=== PATIENT | female | born 1955 | race Caucasian/White ===

== ENCOUNTER 2019-05-13 17:39 | Inpatient (IN) | payer MEDICARE, OTHER ==
[~2019-05-13] VITALS: Ht 167.6 cm; Wt 167.4 kg
[2019-05-13] MEDS ORDERED: MEROPENEM 1GRAM 1 GM in SODIUM CHLORIDE 0.9% 100 ML 100 ML IV ONE (18:00)
[2019-05-13] MEDS ORDERED: VANCOMYCIN 1GM/NS 250 ML 250 ML IV ONE (18:00)
[2019-05-13] MEDS ORDERED: PROPOFOL IV EMULSION 10MG/ML 100 ML ONE (18:02)
[2019-05-13] MEDS ORDERED: SODIUM CHLORIDE 0.9% 1000ML 1,000 ML ONE (18:04)
[2019-05-13] MEDS ORDERED: MEROPENEM 1GM 100 ML IV ONE (18:15)
[2019-05-13] MEDS ORDERED: SODIUM CHLORIDE 0.9% 1000ML 1,000 ML IV STA (18:16)
[2019-05-13] MEDS ORDERED: PANTOPRAZOLE 40 MG 10ML VIAL IV ONE (18:17)
[2019-05-13 18:25] LABS: BASOPHILS # (AUTO) 0.1 (0.0-0.1); BASOPHILS % 0.9 % (0.0-1.0); EOSINOPHILS # (AUTO) 0.3 (0.0-0.4); EOSINOPHILS % 2.4 % (0.0-6.0); HEMATOCRIT 34.4 % (34.2-44.1); HEMOGLOBIN 9.7 g/dL (12.0-16.0); LYMPHOCYTES # (AUTO) 2.7 (1.0-3.2); LYMPHOCYTES % 24.2 % (18.0-39.1); MEAN CORPUSCULAR HEMOGLOBIN 22.8 pg (28-32); MEAN CORPUSCULAR HGB CONC 28.2 g/dL (31-35); MEAN CORPUSCULAR VOLUME 80.9 fL (81-99); MONOCYTES # (AUTO) 1.1 (0.2-0.8); MONOCYTES % 9.8 % (4.4-11.3); NEUTROPHILS # (AUTO) 6.9 (2.1-6.9); NEUTROPHILS % 62.2 % (38.7-80.0); PLATELET COUNT 335 x10e3/uL (140-360); RED BLOOD COUNT 4.25 x10e6/uL (3.6-5.1); RED CELL DISTRIBUTION WIDTH 19.8 % (11.7-14.4)
[2019-05-13] MEDS ORDERED: ONDANSETRON HCL INJ 2MG/ML 2ML 2 MG/ML VIAL IV PRN (18:30)
[2019-05-13] MEDS ORDERED: SUCCINYLCHOLINE CHLORIDE 20 MG/ML 10ML VIAL ONE (18:32)
[2019-05-13] MEDS ORDERED: ETOMIDATE 40 MG/ 20ML VIAL IV ONE (18:32)
[2019-05-13 18:39] LABS: BILIRUBIN,URINE NEGATIVE (NEGATIVE); CLARITY,URINE CLOUDY (CLEAR); COLOR,URINE YELLOW (YELLOW); KETONES,URINE NEGATIVE (NEGATIVE); LEUKOCYTE ESTERASE ,URINE LARGE (NEGATIVE); NITRITE,URINE POSITIVE (NEGATIVE); PROTEIN,URINE DIPSTICK 2+ (NEGATIVE); URINE UROBILINOGEN 0.2 mg/dL (0.2 - 1)
[2019-05-13 18:52] LABS: ALBUMIN 3.5 g/dL (3.5-5.0); ANION GAP 21.3 mmol/L (8-16); CALCIUM 9.7 mg/dL (8.4-10.2); CREATININE, SERUM 1.72 mg/dL (0.57-1.11); MAGNESIUM 1.9 MG/DL (1.3-2.1); POTASSIUM 4.3 mmol/L (3.5-5.1)
--- NOTE | 2019-05-13 18:53 | Diagnostic Imaging Report ---
EXAMINATION: CHEST SINGLE (PORTABLE) INDICATION: ^sob>intubated ^20190513 ^[id number] COMPARISON: None FINDINGS: AP view TUBES and LINES: There is an endotracheal tube in place with distal tip just below the clavicle. Recommend 4 cm advancement. LUNGS: Right upper lobe opacity is seen compatible with consolidation. There is hazy opacity overlying the left lung. PLEURA: No pleural effusion or pneumothorax. HEART AND MEDIASTINUM: The cardiomediastinal silhouette is unremarkable. BONES AND SOFT TISSUES: No acute osseous lesion. Soft tissues are unremarkable. UPPER ABDOMEN: No free air under the diaphragm. IMPRESSION: There is an endotracheal tube in place with distal tip just below the clavicle. Recommend 4 cm advancement. Right upper lobe consolidation and hazy opacity overlying the left lung likely infectious in etiology. Signed by: Jero Rondon MD on 05/13/2019 6:51 PM
[2019-05-13 18:59] LABS: CREATINE KINASE MB 2.3 ng/mL (0-5.0)
[2019-05-13 19:00] VITALS: BP 105/83
[2019-05-13 19:00] LABS: B-TYPE NATRIURETIC PEPTIDE2 1341.4 pg/mL (0-100)
[2019-05-13] MEDS ORDERED: SODIUM CHLORIDE 0.9% 1000ML 1,000 ML IV ONE ×2 (19:05)
[2019-05-13 19:15] LABS: BACTERIA,URINE MODERATE /HPF; EPITHELIAL CELLS,URINE MODERATE /LPF
[2019-05-13 19:56] LABS: ABG HCO3 28 mmol/L (23-28); ABG PCO2 46 mmHg (41-51); ABG PH 7.39 (7.31-7.41); ABG PO2 331 mmHg (80-105)
[2019-05-13] MEDS ORDERED: LORAZEPAM INJ 2 MG/ML VIAL IV PRN (20:00)
[2019-05-13] MEDS ORDERED: SODIUM CHLORIDE 0.9% 1000ML 1,000 ML IV SCH (20:15)
[2019-05-13 20:24] LABS: INR 1.3
[2019-05-13 20:25] LABS: PARTIAL THROMBOPLASTIN TIME 36.9 seconds (23.8-35.5)
[2019-05-13 21:00] VITALS: BP 87/68
[2019-05-13 21:26] VITALS: BP 105/83
[2019-05-13] MEDS: DEXMEDETOMIDINE HCL 200 MCG in SODIUM CHLORIDE 0.9% 50ML 48 ML IV PRN ×2 (21:29→23:36)
[2019-05-13 22:00] VITALS: BP 117/82
[2019-05-13] MEDS: MEROPENEM 1GM 100 ML IV SCH (22:00)
[2019-05-13] MEDS ORDERED: MEROPENEM 1GRAM 1 GM in SODIUM CHLORIDE 0.9% 100 ML 100 ML IV SCH (22:00)
[2019-05-13] MEDS: AZITHROMYCIN 500MG/NS 250 ML 250 ML IV SCH (22:12)
[2019-05-13 23:00] VITALS: BP 114/69
[2019-05-13 23:59] VITALS: BP 111/72
[2019-05-14] VITALS (26 sets, daily range): BP systolic 90–121; BP diastolic 47–78
--- NOTE | 2019-05-14 00:12 | Consultation ---
DATE OF CONSULTATION: 06/11/2019 CHIEF COMPLAINT: Respiratory failure. HISTORY OF PRESENT ILLNESS: The patient is a 63-year-old woman. She has a history of atrial fibrillation and congestive heart failure. She was staying at the [facility]. Apparently, she had more trouble breathing and was less responsive. She came to the emergency department, was found to be in extremis, being in severe respiratory distress. She was intubated. Subsequent workup showed a right upper lobe infiltrate suggestive of possible pneumonia along with pyuria suggestive of possible urinary tract infection. PAST SURGICAL HISTORY: 1. Status post hysterectomy. 2. Status post bilateral knee surgery. PAST MEDICAL HISTORY: 1. Atrial fibrillation. 2. Congestive heart failure. 3. Morbid obesity. SOCIAL HISTORY: The patient is not an active smoker. She is not an active drinker. ALLERGIES: SHE IS ALLERGIC TO STATINS, PENICILLIN, SULFA, FENTANYL, MORPHINE, AND OXYCODONE. FAMILY HISTORY: Noncontributory. REVIEW OF SYSTEMS: The patient has been less oriented. The patient has been confused. There is no reported history of fevers. She did have trouble breathing. There was no reported chest pain. She had no vomiting. She had no diarrhea. She had no leg edema. PHYSICAL EXAMINATION: VITAL SIGNS: The patient is afebrile. The blood pressure is 110/70 with a heart rate of 110. She is on assist-control mode of ventilation at a rate of 18 with a tidal volume of 500. She has an oral endotracheal tube in place. CARDIAC: Reveals regular rate and rhythm with normal S1 and S2. LUNGS: Auscultation of lungs reveals rhonchorous breath sounds bilaterally. There is no wheezing. ABDOMEN: Soft and nontender. There is no rebound or guarding. EXTREMITIES: Show no leg edema or calf tenderness. There is a Landaverde in place with pyuria. LABORATORY DATA: White blood cell count is 11, hemoglobin is 9.7, and the platelet count is 335. BUN to creatinine ratio is 22 to 1.72. Lactic acid is 5.7. The BNP is 1341. Urinalysis shows 11 to 20 white blood cells. Chest x-ray shows right upper lobe consolidation and hazy opacity over the left lung. IMPRESSION: 1. Healthcare-associated pneumonia with severe sepsis, present on admission. 2. Zrsxl-nc-rsyqqak respiratory failure. 3. Nrqxb-ki-kwycrno mixed diastolic and systolic heart failure. 4. Morbid obesity. 5. Urinary tract infection. PLAN: 1. The patient will receive IV antibiotics with adequate coverage for healthcare-associated pathogens. 2. Continue mechanical ventilation. 3. The patient has received 30 mL of fluid per kg of ideal body weight. 4. Await culture results. 5. Echocardiogram. 6. DVT prophylaxis. 7. Enteral feedings. Silvestre Pham MD [facility]/NARGIS /[id number]
[2019-05-14 00:28] LABS: CREATINE KINASE MB 2.9 ng/mL (0-5.0)
[2019-05-14] MEDS: DEXMEDETOMIDINE HCL 200 MCG in SODIUM CHLORIDE 0.9% 50ML 48 ML IV PRN ×2 (01:44→04:06)
[2019-05-14 05:27] LABS: BASOPHILS % 0.6 % (0.0-1.0); EOSINOPHILS # (AUTO) 0.2 (0.0-0.4); EOSINOPHILS % 2.6 % (0.0-6.0); HEMATOCRIT 27.6 % (34.2-44.1); HEMOGLOBIN 7.9 g/dL (12.0-16.0); LYMPHOCYTES # (AUTO) 1.1 (1.0-3.2); LYMPHOCYTES % 15.6 % (18.0-39.1); MEAN CORPUSCULAR HEMOGLOBIN 22.8 pg (28-32); MEAN CORPUSCULAR HGB CONC 28.6 g/dL (31-35); MEAN CORPUSCULAR VOLUME 79.5 fL (81-99); MONOCYTES # (AUTO) 1.1 (0.2-0.8); MONOCYTES % 14.6 % (4.4-11.3); NEUTROPHILS # (AUTO) 4.8 (2.1-6.9); NEUTROPHILS % 66.2 % (38.7-80.0); PLATELET COUNT 152 x10e3/uL (140-360); RED BLOOD COUNT 3.47 x10e6/uL (3.6-5.1); RED CELL DISTRIBUTION WIDTH 19.4 % (11.7-14.4)
[2019-05-14] MEDS: MEROPENEM 1GM 100 ML IV SCH ×3 (05:28→22:51)
[2019-05-14] MEDS: LEVOTHYROXINE SODIUM 100 MCG TAB PO SCH (05:28)
[2019-05-14 06:03] LABS: CREATINE KINASE MB 2.5 ng/mL (0-5.0)
[2019-05-14 06:24] LABS: ALBUMIN 2.7 g/dL (3.5-5.0); ALBUMIN/GLOBULIN RATIO 0.9 (0.8-2.0); ANION GAP 13.5 mmol/L (8-16); CALCIUM 8.6 mg/dL (8.4-10.2); CHOL/HDL RATIO 5.3 (3.0-3.6); CREATININE, SERUM 1.52 mg/dL (0.57-1.11); POTASSIUM 3.5 mmol/L (3.5-5.1)
--- NOTE | 2019-05-14 07:00 | Diagnostic Imaging Report ---
EXAMINATION: CHEST SINGLE (PORTABLE) COMPARISON: Chest x-ray 05/13/2019 INDICATION: Shortness of breath ^Resp Failure ^20190514 ^0605 DISCUSSION: Frontal view of the chest obtained at 0603 hours. HEART AND MEDIASTINUM: Stable cardiomegaly. Pulmonary arteries are enlarged. LINES: Endotracheal tube terminates 3 to 4 cm above the johana. Enteric tube extends past the diaphragm LUNGS: Right upper lobe consolidation is stable. Left lung is clear. PLEURA: New small right pleural effusion. No pneumothorax. BONES AND SOFT TISSUES: No focal osseous lesion. The soft tissues are normal. IMPRESSION: 1. Support devices as described above. 2. Stable right upper lobe infiltrate. New right pleural effusion. 3. Stable cardiomegaly and pulmonary artery enlargement suggestive of pulmonary artery hypertension. Signed by: Dr. Mari Hernandez MD on 05/14/2019 6:58 AM
[2019-05-14] MEDS ORDERED: DEXMEDETOMIDINE 200MCG/NS 50ML 50 ML IV ONE (07:33)
[2019-05-14 08:01] LABS: HYPOCHROMASIA SLIGHT; RBC MORPHOLOGY COMMENT ABNORMAL
[2019-05-14] MEDS ORDERED: FUROSEMIDE INJ 10 MG/ML 4 ML VIAL ONE (08:07)
[2019-05-14] MEDS: LORAZEPAM INJ 2 MG/ML VIAL IV PRN ×4 (08:20→15:15)
[2019-05-14] MEDS ORDERED: FUROSEMIDE INJ 10 MG/ML 4 ML VIAL IV ONE ×3 (08:30→15:30)
[2019-05-14] MEDS: DULOXETINE HCL 30 MG DELAYED RELEASE PO SCH (08:45)
[2019-05-14] MEDS: PANTOPRAZOLE 40 MG 10ML VIAL IV SCH (08:45)
[2019-05-14] MEDS: RISPERIDONE 0.5 MG TAB PO SCH ×2 (08:46→16:59)
[2019-05-14] MEDS ORDERED: ATENOLOL 50 MG TAB PO SCH (09:00)
[2019-05-14] MEDS ORDERED: HEPARIN 25,000 UNIT DRIP IV ONE (09:28)
[2019-05-14] MEDS ORDERED: HEPARIN SOD (PORCINE) 1000 UNIT/ML SDV IV ONE (09:30)
[2019-05-14] MEDS: HEPARIN 25,000 UNIT 1,000 UNIT in DEXTROSE 5% 250ML 250 ML IV SCH (09:44)
--- NOTE | 2019-05-14 10:04 | Progress Note ---
DATE: 05/14/2019 Pulmonary Critical Care Progress Note SUBJECTIVE: The patient has remained on assist control overnight. She has been on Precedex for sedation. Her heart rate this morning was low in the 40-50 range. Her Precedex was stopped and her atenolol has been held. She was switched to a spontaneous breathing trial this morning and remains on pressure support of 10 and PEEP of 5. PHYSICAL EXAMINATION: VITAL SIGNS: The blood pressure is 105/60 and the saturation is 100%. She is on pressure support of 10 and CPAP of 5 with 45% FiO2. Her tidal volumes are in the 250-300 range and her respiratory rate is 15 to 20. HEENT: Shows no facial swelling or erythema. LYMPHATIC: Shows no submandibular, cervical, or supraclavicular adenopathy. CARDIAC: Reveals a regular rate and rhythm with normal S1 and S2. LUNGS: Auscultation of lungs shows decreased breath sounds on the right side. ABDOMEN: Soft, nontender. There is no rebound or guarding. EXTREMITIES: Show no leg edema or calf tenderness. There is no cyanosis or clubbing. SKIN: Shows no rashes. NEUROLOGICAL: Shows no focal abnormalities. LABORATORY DATA: The white blood cell count is 7.2 and hemoglobin is 7.9. The platelet count is 152. The BUN to creatinine ratio is 21 to 1.52. The other electrolytes are within normal limits. Albumin is 2.7 and the troponin I is normal. RADIOGRAPHIC DATA: Chest x-ray shows a right upper lobe infiltrate and a right pleural effusion. There is some cardiomegaly. IMPRESSION: 1. Healthcare associated pneumonia with severe sepsis, present on admission. 2. Acute on chronic mixed diastolic and systolic heart failure. 3. Atrial fibrillation. 4. Acute on chronic respiratory failure. 5. Morbid obesity. 6. Urinary tract infection. 7. Acute kidney injury. PLAN: 1. IV Lasix this morning. 2. Continue spontaneous breathing trial and repeat ABG in 1 hour. 3. Hold atenolol. 4. Echocardiogram and Cardiology consult. 5. Continue current antibiotics. 6. Await culture results. 7. Case discussed with respiratory, nursing staff and attending physician. 8. Greater than 35 minutes in direct critical care time. Silvestre Pham MD [facility]/NARGIS /[id number]
--- NOTE | 2019-05-14 10:35 | Consultation ---
DATE OF CONSULTATION: 05/14/2019 Cardiology Consultation CONSULTING PHYSICIAN: Dylan Ventura MD, Interventional Cardiology. REASON FOR CONSULTATION: Atrial fibrillation and shortness of breath. HISTORY OF PRESENT ILLNESS: Ms. Wahl is a 63-year-old woman, who [facility] for worsening respiratory distress. She was noted to be in extreme respiratory distress upon admission, requiring an emergent intubation. She is currently on vent support. Per chart review, prior history of heart failure and atrial fibrillation. Imaging studies remarkable for right upper lobe infiltrate and abnormal urinary analysis concerning for possible UTI. She has been initiated on antibiotics. REVIEW OF SYSTEMS: A 12-system review unable to assess. PAST SURGICAL HISTORY: Per review of chart, hysterectomy, bilateral knee surgery. PAST MEDICAL HISTORY: Paroxysmal atrial fibrillation, chronic heart failure, and morbid obesity. SOCIAL HISTORY: Per chart review, no smoking or active drinking alcohol. ALLERGIES: REPORTEDLY ALLERGIC TO STATINS, PENICILLIN, SULFA, FENTANYL, MORPHINE, AND OXYCODONE PER CHART REVIEW. FAMILY HISTORY: Noncontributory. PHYSICAL EXAMINATION: VITAL SIGNS: Temperature 96.4, heart rate 45, blood pressure 90/78, respiratory rate 12, O2 saturation 98%, BMI 60.5. GENERAL: Intubated and sedated on vent support. CHEST: With decreased breath sounds. CARDIOVASCULAR: Irregular rate and rhythm. Normal S1 and S2. Distant heart sounds. No S3 or S4. Systolic ejection murmur 1/6. ABDOMEN: Soft. Bowel sounds positive. EXTREMITIES: 1+ edema. CARDIOVASCULAR MEDICATIONS: Reviewed. Lovenox 40 mg subcu daily, meropenem, and azithromycin antibiotics, levothyroxine 150 mcg daily. STUDIES: Reviewed. Potassium 3.5, creatinine 1.5, glucose 80. White blood cell 7.6, hemoglobin 7.9, and platelets 152. AST 19, ALT 8. ASSESSMENT: 1. A 63-year-old woman presents with acute respiratory failure requiring endotracheal intubation. 2. Morbid obesity. 3. History of heart failure, acute on chronic, unspecified. 4. Suspected pneumonia. 5. Suspected urinary tract infection, undergoing antibiotic therapy. 6. Status post diuretic challenge with furosemide 80 mg and 40 mg given x1. RECOMMENDATIONS: 1. Obtain echocardiogram. 2. Monitor H and H as hemoglobin is 7.9. 3. No active bleeding noted so far. If okay with other treating physicians, consider initiating anticoagulation with heparin IV for history of atrial fibrillation noted on telemetry. 4. Continue diuretic challenge for now. 5. Agree with antibiotic therapy coverage as pneumonia and UTI differential. MD BARB Sewell/NARGIS /[id number]
[2019-05-14] MEDS ORDERED: CYMBALTA30 MG PO (13:03)
[2019-05-14] MEDS ORDERED: DOCUSATE SODIU100 MG PO (13:03)
[2019-05-14] MEDS ORDERED: CYCLOBENZAPRINE10 MG PO (13:03)
[2019-05-14] MEDS ORDERED: DIGOXIN250 MCG PO (13:03)
[2019-05-14] MEDS ORDERED: ATENOLOL50 MG PO (13:03)
[2019-05-14] MEDS ORDERED: CARDIZEM60 MG PO (13:03)
[2019-05-14] MEDS ORDERED: FUROSEMIDE40 MG PO (13:03)
[2019-05-14] MEDS ORDERED: LEVOTHYROXINE100 MC1 IV (13:05)
[2019-05-14 15:31] LABS: CREATINE KINASE MB 1.4 ng/mL (0-5.0)
[2019-05-14] MEDS: FUROSEMIDE INJ 10 MG/ML 4 ML VIAL IV SCH (15:33)
[2019-05-14] MEDS ORDERED: PROPOFOL IV EMULSION 10MG/ML 100 ML ONE (15:40)
[2019-05-14] MEDS ORDERED: PROPOFOL IV EMULSION 10 MG/ML 50 ML VIAL IV PRN (15:45)
[2019-05-14] MEDS: PROPOFOL IV EMULSION 10MG/ML 100 ML IV PRN ×3 (15:48→23:02)
--- NOTE | 2019-05-14 16:06 | History and Physical ---
PCP: Dr. Avilez at [facility]. CHIEF COMPLAINT: Acute respiratory failure due to CHF exacerbation. HISTORY OF PRESENT ILLNESS: This is a 63-year-old female with past medical history of hypertension, atrial fibrillation, diastolic CHF, CKD, osteoarthritis, and cellulitis, presented to the ER with increased shortness of breath. Upon arrival to the ER, she continues to have increased shortness of breath, so was intubated and transferred to the ICU. She remains intubated this morning in the ICU. Unable to obtain any further information due to her being intubated. PAST MEDICAL HISTORY: 1. Hypertension. 2. Paroxysmal atrial fibrillation. 3. Unspecified CHF. 4. CKD. 5. Osteoarthritis. 6. Morbid obesity. 7. Multiple skin ulcers. PAST SURGICAL HISTORY: Unknown. FAMILY MEDICAL HISTORY: Unknown due to intubation. SOCIAL HISTORY: Was at [facility]. ALLERGIES: SHE IS ALLERGIC TO PENICILLIN, STATINS, SULFA, ACETAMINOPHEN, CODEINE, FENTANYL, MORPHINE, OXYCODONE, TRAMADOL, AND MEPERIDINE. REVIEW OF SYSTEMS: Unable to obtain due to intubation. PHYSICAL EXAMINATION: VITAL SIGNS: Temperature 97.9, pulse is 54, respirations 12, blood pressure 107/52, and pulse ox is 98% on ventilator. GENERAL: Sedated, intubated. HEENT: Normocephalic and atraumatic. NECK: Supple. LUNGS: With decreased breath sounds and wheezing. CARDIOVASCULAR: Irregular rhythm and bradycardia. GI: Obese and soft. NEURO: Sedated. MUSCULOSKELETAL: Moves extremities. Generalized edema. SKIN: Multiple scabs and laceration noted on skin. LABORATORY DATA: WBC 11.06, hemoglobin 9.7, now 7.9, hematocrit 37.4, and platelet 335. Sodium 140, potassium 3.5, BUN is 21, creatinine 1.52, and glucose 80. Lactic acid 2.6. Troponin x3 negative. BNP is 1341. Triglycerides 90, LDL 33, and HDL 12. PT 17.0, INR 1.3, and APTT 36.9. UA; cloudy with positive nitrites, large leukocyte esterase, and bacteria. IMAGING DATA: Chest x-ray shows right upper lobe consolidation and hazy opacity overlying the left lung, likely infectious in etiology. IMPRESSION: 1. Acute respiratory failure requiring intubation. Likely due to pneumonia versus congestive heart failure exacerbation. 2. Questionable pneumonia. Chest x-ray noted. We will continue on IV antibiotics. Dr. Pham with historiographer following. 3. Urinary tract infection. Urine culture is pending. UA positive. We will continue on Merrem. 4. Acute kidney injury versus chronic kidney disease. We will continue to monitor closely. 5. Hypertension, now stable. We will only treat as needed. 6. Paroxysmal atrial fibrillation. Heart rate is now in the low 40s and 50s. Cardiology consulted, started on heparin drip. We will continue to monitor closely in the ICU. 7. Axwbw-jh-pnpccpi congestive heart failure. Unspecified. Echocardiogram pending. We will continue with IV Lasix as the kidney allows. 8. History of hypothyroidism. We will resume on levothyroxine 150 mcg daily. 9. Morbid obesity. 10. Multiple lacerations and scabs. We will consult Wound Care. 11. Deep vein thrombosis prophylaxis. On heparin drip. Dictated by GISSEL Lin Marietta Lambert MD MY/MODL /[id number]
[2019-05-14] MEDS ORDERED: ENOXAPARIN SOD INJ 40 MG/0.4 ML SYR SC SCH (17:00)
[2019-05-14] MEDS: AZITHROMYCIN 500MG/NS 250 ML 250 ML IV SCH (20:04)
[2019-05-15] VITALS (26 sets, daily range): BP systolic 92–123; BP diastolic 43–93
[2019-05-15] MEDS: LORAZEPAM INJ 2 MG/ML VIAL IV PRN (00:47)
[2019-05-15] MEDS: PROPOFOL IV EMULSION 10MG/ML 100 ML IV PRN (02:41)
[2019-05-15 05:00] LABS: BASOPHILS % 0.4 % (0.0-1.0); EOSINOPHILS # (AUTO) 0.2 (0.0-0.4); EOSINOPHILS % 2.6 % (0.0-6.0); HEMOGLOBIN 7.8 g/dL (12.0-16.0); LYMPHOCYTES # (AUTO) 0.9 (1.0-3.2); MEAN CORPUSCULAR HEMOGLOBIN 22.7 pg (28-32); MEAN CORPUSCULAR HGB CONC 28.9 g/dL (31-35); MEAN CORPUSCULAR VOLUME 78.5 fL (81-99); MONOCYTES # (AUTO) 0.7 (0.2-0.8); MONOCYTES % 9.8 % (4.4-11.3); NEUTROPHILS # (AUTO) 5.1 (2.1-6.9); NEUTROPHILS % 73.9 % (38.7-80.0); RED BLOOD COUNT 3.44 x10e6/uL (3.6-5.1); RED CELL DISTRIBUTION WIDTH 19.5 % (11.7-14.4)
[2019-05-15 05:01] LABS: PLATELET COUNT 160 x10e3/uL (140-360)
[2019-05-15 05:20] LABS: ALBUMIN 2.6 g/dL (3.5-5.0); ALBUMIN/GLOBULIN RATIO 0.9 (0.8-2.0); ANION GAP 11.8 mmol/L (8-16); CALCIUM 8.4 mg/dL (8.4-10.2); CREATININE, SERUM 1.45 mg/dL (0.57-1.11)
[2019-05-15 05:22] LABS: POTASSIUM 2.8 mmol/L (3.5-5.1)
[2019-05-15] MEDS: LEVOTHYROXINE SODIUM 100 MCG TAB PO SCH (05:41)
[2019-05-15] MEDS: MEROPENEM 1GM 100 ML IV SCH ×3 (05:41→22:56)
[2019-05-15] MEDS ORDERED: POTASSIUM CHLORIDE 20 MEQ TAB CR PO STA (05:48)
--- NOTE | 2019-05-15 05:55 | Diagnostic Imaging Report ---
Examination: Single AP view of the chest. COMPARISON: 05/14/2019 INDICATION: Respiratory failure DISCUSSION: See impression IMPRESSION: 1. Endotracheal tube and enteric tube are unchanged in position. 2. Stable enlargement of the cardiac silhouette with enlargement of the pulmonary artery, possibly related to pulmonary artery hypertension. 3. Interval improved aeration of the right upper lobe relative to 05/14/2019. Stable small right pleural effusion with probable passive atelectasis of the right lower lobe. 4. No acute osseous abnormalities. Partially visualized enchondroma versus bone infarct of the proximal right humerus. Signed by: Dr. Khoa Mahoney M.D. on 05/15/2019 5:52 AM
[2019-05-15] MEDS ORDERED: POTASSIUM CHLORIDE 20 MEQ TAB CR PO ONE (06:00)
[2019-05-15] MEDS: FUROSEMIDE INJ 10 MG/ML 4 ML VIAL IV SCH ×2 (06:19→16:35)
[2019-05-15 07:57] LABS: HYPOCHROMASIA SLIGHT; RBC MORPHOLOGY COMMENT ABNORMAL
[2019-05-15] MEDS ORDERED: POTASSIUM CHLORIDE 20MEQ/100ML 200 ML ONE (08:16)
[2019-05-15] MEDS: PANTOPRAZOLE 40 MG 10ML VIAL IV SCH (08:28)
[2019-05-15] MEDS: DULOXETINE HCL 30 MG DELAYED RELEASE PO SCH (08:28)
[2019-05-15] MEDS ORDERED: POTASSIUM CHLORIDE 20MEQ/100ML 200 ML IV ONE ×2 (08:30→17:00)
[2019-05-15 09:08] LABS: ABG HCO3 31 mmol/L (23-28); ABG PCO2 43 mmHg (41-51); ABG PH 7.47 (7.31-7.41); ABG PO2 77 mmHg (80-105)
[2019-05-15] MEDS: RISPERIDONE 0.5 MG TAB PO SCH ×2 (09:35→16:35)
[2019-05-15] MEDS: HEPARIN 25,000 UNIT 1,000 UNIT in DEXTROSE 5% 250ML 250 ML IV SCH (09:44)
--- NOTE | 2019-05-15 10:10 | Progress Note ---
DATE: 05/15/2019 Pulmonary Critical Care Progress Note SUBJECTIVE: The patient is -3600 mL over the past 24 hours. Her x-ray has improved with the diuresis. She is currently on a pressure support of 8 with a CPAP of 5 and is breathing about 20 times a minute with tidal volumes of 300 to 350 mL. She has no fevers. She was evaluated by Cardiology yesterday. PHYSICAL EXAMINATION: VITAL SIGNS: The blood pressure is 112/50 and the pulse is 57. The respiratory rate is 20 to 25. HEENT: Shows an endotracheal tube in good position. LYMPHATIC: Shows no submandibular, cervical, or supraclavicular adenopathy. CARDIAC: Reveals a regular rate and rhythm with normal S1 and S2. LUNGS: Auscultation of lungs reveals clear breath sounds anteriorly. There are few crackles at the bases. ABDOMEN: Soft, nontender. There is no rebound or guarding. EXTREMITIES: Show no leg edema or calf tenderness. There is no cyanosis or clubbing. SKIN: Shows no rashes. NEUROLOGICAL: Shows no focal abnormalities. LABORATORY DATA: Sodium is 140, potassium is 2.8, and BUN to creatinine ratio is 21 to 1.45. The white blood cell count is 6.86 and hemoglobin is 7.8. The platelet count is 116. MICROBIOLOGY DATA: Urinalysis shows greater than 100,000 gram-negative rods. RADIOGRAPHIC DATA: Chest x-ray shows interval improvement of the right upper lobe infiltrates and decrease in size of the right pleural effusion. There is mild cardiomegaly. Preliminary echocardiogram evaluation: Decreased systolic function with an ejection fraction of 40 to 45. There is some concentric left ventricular hypertrophy as well as moderate tricuspid regurgitation with a right ventricular systolic pressure of 50. IMPRESSION: 1. Fisai-lq-figmimv systolic congestive heart failure. 2. Healthcare associated pneumonia with severe sepsis, present on admission. 3. Atrial fibrillation. 4. Morbid obesity. 5. Yvwka-tk-ifckowv respiratory failure. 6. Escherichia coli urinary tract infection. 7. Acute kidney injury. PLAN: 1. Complete spontaneous breathing trial and work towards extubation. 2. Hold enteral feedings and sedation in preparation for possible extubation. 3. Continue diuresis. 4. Continue anticoagulation for atrial fibrillation. 5. Continue to hold atenolol because of the low heart rate. 6. Continue current antibiotics and adjust antibiotics depending on culture results. 7. Case discussed with nursing staff, Respiratory, and family. Greater than 35 minutes in direct critical care time. MD JENNIFFER Daly/NARGIS /[id number]
--- NOTE | 2019-05-15 11:15 | Progress Note ---
DATE: 05/15/2019 Cardiology Progress Note SUBJECTIVE: Extubated to BiPAP. No complaints. Feeding per NG tube. OBJECTIVE: VITAL SIGNS: Temperature 97.8, heart rate 67, respiratory rate 19, blood pressure 123/77, and O2 saturation 96% on vent support via BiPAP. GENERAL: No acute distress. NECK: JVD distended. CHEST: Decreased breath sounds in bilateral bases. CARDIOVASCULAR: Irregular rate and rhythm. Normal S1 and S2. No S3 or S4. Distant heart sounds. Systolic ejection murmur 6. No S3. No S4. ABDOMEN: Soft. Bowel sounds positive. EXTREMITIES: Trace edema. CARDIOVASCULAR MEDICATIONS: Reviewed. Heparin IV, furosemide 40 mg IV b.i.d., azithromycin, meropenem antibiotics and potassium chloride total of 80 mEq scheduled for today following with p.m. rechecking of lytes. LABORATORY DATA: White blood cell 6.8, hemoglobin 7.8, and platelets 160. PTT 64.3. Sodium 140, potassium 2.8, chloride 102, bicarbonate 29, BUN 21, creatinine 1.4, glucose 78, and calcium 8.4. AST 18, ALT 9, total bilirubin 0.8, and alkaline phosphatase 83. Troponin I negative x3. Albumin 2.6. ASSESSMENT AND PLAN: 1. A 63-year-old woman presents with mwozx-ut-sppgzxv diastolic heart failure, healthcare-associated pneumonia with severe sepsis, present on admission. 2. Atrial fibrillation. 3. Morbid obesity. 4. Zytpo-gf-fxrfqzj respiratory failure, now status post endotracheal intubation, extubated to BiPAP today. 5. Acute kidney injury. 6. Hypokalemia. 7. Escherichia coli urinary tract infection. RECOMMEND: 1. Continue diuretics. 2. Replete electrolytes as needed. 3. IV heparin for now. 4. Given BMI of 60.5 with a weight of 375 pounds, we will advise on warfarin for thrombolic risk prevention and long-term use. However, given hemoglobin of 7.8, further evaluation advised of anemia, fecal occult blood test requested today. Discussed with nursing staff. Dylan Ventura MD [facility]/MODL /[id number]
[2019-05-15 11:37] LABS: ABG HCO3 33 mmol/L (23-28); ABG PCO2 40 mmHg (41-51); ABG PH 7.52 (7.31-7.41); ABG PO2 125 mmHg (80-105)
--- NOTE | 2019-05-15 16:11 | Progress Note ---
DATE: 05/15/2019 CONSULTANTS: 1. Dr. Amin with Cardiology. 2. Dr. Silvestre Pham with bed teacher. CHIEF COMPLAINT: Acute respiratory distress. SUBJECTIVE: The patient has been extubated this morning on nasal cannula. Shortness of breath is improved, still with wheezing and crackles. Has NG tube in place. She denies any chest pain, shortness of breath, fever, or chills. PHYSICAL EXAMINATION: VITAL SIGNS: Temperature 97.9, pulse is 65, respirations 25, blood pressure 107/43, pulse ox is 96% on nasal cannula. GENERAL: No acute distress. HEENT: Normocephalic atraumatic. NECK: Supple. CARDIOVASCULAR: Regular rate and rhythm. LUNGS: Wheezing and crackles. ABDOMEN: Soft and nontender, obese. NEURO: Alert, awake, and oriented x2-3. MUSCULOSKELETAL: Generalized edema. SKIN: Lacerations and scabs noted. LABORATORY DATA: WBC 6.86, hemoglobin 7.8, hematocrit 27.0, and platelet 160. Sodium 140, potassium 2.8, BUN 21, creatinine 1.45, estimated GFR 36, calcium 8.4. Troponin x3 negative. Urine culture is positive for Klebsiella pneumoniae with ESBL. IMAGING: Chest x-ray with interval improvement of upper lobe compared to yesterday. Atelectasis on the right lower lobe. IMPRESSION: 1. Acute respiratory failure requiring intubation, extubated today, likely due to hospital healthcare-acquired pneumonia versus CHF exacerbation. 2. Sepsis, present on admission due to pneumonia and urinary tract infection. Chest x-ray noted. Continue IV antibiotics. Dr. Pham with bed teacher following. 3. Urinary tract infection. Urine culture positive for Klebsiella ESBL. We will continue on Merrem. 4. Acute kidney injury versus chronic kidney disease. Improving slowly, creatinine 1.45 today. 5. Hypokalemia. Likely due to diuresis. We will replace and recheck. 6. Paroxysmal atrial fibrillation. Rate controlled, continue on heparin drip. Cardiology on the case. 7. Acute on chronic systolic congestive heart failure. Echocardiogram pending. We will continue aggressive IV diuresis. Further recommendation per Cardiology. 8. Hypertension. We will treat as needed. 9. Morbid obesity. BMI of 66. 10. History of hypothyroidism. Continue levothyroxine. 11. Multiple skin lacerations and scabs. We will consult wound care. 12. DVT prophylaxis. On heparin. PLAN: Extubated today. We will consult Speech for swallowing evaluation Dictated by GISSEL Lin Maritzaching MD GONZALO Pace/MODL /[id number]
[2019-05-15 18:04] LABS: CREATININE, SERUM 1.44 mg/dL (0.57-1.11); MAGNESIUM 1.8 MG/DL (1.3-2.1)
[2019-05-15] MEDS: AZITHROMYCIN 500MG/NS 250 ML 250 ML IV SCH (20:18)
[2019-05-16] VITALS (25 sets, daily range): BP systolic 81–131; BP diastolic 42–78
[2019-05-16] MEDS: LORAZEPAM INJ 2 MG/ML VIAL IV PRN (02:00)
[2019-05-16 05:13] LABS: BASOPHILS % 0.6 % (0.0-1.0); EOSINOPHILS # (AUTO) 0.3 (0.0-0.4); EOSINOPHILS % 5.8 % (0.0-6.0); HEMATOCRIT 27.6 % (34.2-44.1); LYMPHOCYTES # (AUTO) 0.8 (1.0-3.2); LYMPHOCYTES % 17.3 % (18.0-39.1); MEAN CORPUSCULAR HEMOGLOBIN 23.1 pg (28-32); MEAN CORPUSCULAR VOLUME 79.5 fL (81-99); MONOCYTES # (AUTO) 0.6 (0.2-0.8); NEUTROPHILS # (AUTO) 3.1 (2.1-6.9); NEUTROPHILS % 63.1 % (38.7-80.0); PLATELET COUNT 160 x10e3/uL (140-360); RED BLOOD COUNT 3.47 x10e6/uL (3.6-5.1); RED CELL DISTRIBUTION WIDTH 19.6 % (11.7-14.4)
[2019-05-16] MEDS: MEROPENEM 1GM 100 ML IV SCH ×3 (05:33→21:46)
[2019-05-16] MEDS: LEVOTHYROXINE SODIUM 100 MCG TAB PO SCH (05:33)
[2019-05-16 05:44] LABS: ALBUMIN 2.7 g/dL (3.5-5.0); ALBUMIN/GLOBULIN RATIO 0.9 (0.8-2.0); ANION GAP 13.2 mmol/L (8-16); CALCIUM 8.5 mg/dL (8.4-10.2); CREATININE, SERUM 1.37 mg/dL (0.57-1.11); POTASSIUM 3.2 mmol/L (3.5-5.1)
--- NOTE | 2019-05-16 06:24 | Diagnostic Imaging Report ---
Examination: Single AP view of the chest. COMPARISON: 05/15/2019 INDICATION: Respiratory failure DISCUSSION: See impression IMPRESSION: 1. Endotracheal tube is no longer visualized. Enteric tube tip is difficult to identify due to technique and body habitus. 2. Stable enlargement of the cardiac silhouette with prominence of the central pulmonary arteries. 3. Small right pleural effusion and probable passive atelectasis of the right lower lobe is unchanged. No new consolidations. 4. No acute osseous abnormality. Partially visualized bone infarct versus and chondroma of the right humerus. Signed by: Dr. Khoa Maohney M.D. on 05/16/2019 6:22 AM
[2019-05-16] MEDS: DULOXETINE HCL 30 MG DELAYED RELEASE PO SCH (09:10)
[2019-05-16] MEDS: RISPERIDONE 0.5 MG TAB PO SCH ×2 (09:10→16:14)
[2019-05-16] MEDS: FUROSEMIDE INJ 10 MG/ML 4 ML VIAL IV SCH ×2 (09:10→16:14)
[2019-05-16] MEDS: PANTOPRAZOLE 40 MG 10ML VIAL IV SCH (09:10)
[2019-05-16] MEDS: HEPARIN 25,000 UNIT 1,000 UNIT in DEXTROSE 5% 250ML 250 ML IV SCH (09:43)
[2019-05-16] MEDS ORDERED: POTASSIUM CHLORIDE 10MEQ/100ML 100 ML IV ONE (10:30)
[2019-05-16] MEDS ORDERED: POTASSIUM CHLORIDE 20MEQ/15ML UDC NG ONE (11:00)
[2019-05-16 11:02] LABS: ANISOCYTOSIS MODERATE; ELLIPTOCYTE, RBC SLIGHT; OVALOCYTES FEW; PLATELET ESTIMATE ADEQUATE; PLATELET MORPHOLOGY COMMENT NORMAL; RBC MORPHOLOGY COMMENT ABNORMAL
[2019-05-16 11:03] LABS: HYPOCHROMASIA SLIGHT; TEAR DROP CELLS FEW
--- NOTE | 2019-05-16 12:32 | Progress Note ---
DATE: 05/16/2019 Cardiology Progress Note SUBJECTIVE: No complaints today. Respiratory at bedside, planning for trial, weaning off BiPAP. OBJECTIVE: VITAL SIGNS: Temperature 97 degrees, heart rate 61, blood pressure 103/77, respiratory rate 17, O2 saturation 98% on BiPAP, BMI 59.4. GENERAL: No acute distress, alert. BiPAP in place. NECK: No JVD. CHEST: Clear to auscultation. CARDIOVASCULAR: Irregularly irregular rate and rhythm. Normal S1 and S2. Systolic ejection murmur. ABDOMEN: Soft. Bowel sounds positive. EXTREMITIES: Trace edema. CARDIOVASCULAR MEDICATIONS: Reviewed. Furosemide 40 mg b.i.d. LABORATORY DATA: Studies reviewed. Sodium 144, potassium 3.2, chloride . White blood cells 4.8, hemoglobin 8, platelets 160. PT 17, , INR 1.3. AST 17, ALT 8, alkaline phosphatase 81, total bilirubin 0.8. Fecal occult blood test negative. ASSESSMENT: 1. A 63-year-old man presents with acute respiratory failure. 2. Pneumonia. 3. Acute on chronic diastolic heart failure. 4. Anemia. 5. Atrial fibrillation. RECOMMENDATIONS: 1. Continue current cardiovascular medications. 2. If okay with other treating physicians, we need to initiate warfarin 5 mg p.o. daily for target INR 2-3. 3. Heparin bridge advised. 4. Anemia workup advised, however, fecal occult blood test negative and currently without active gross bleeding. MD BARB Sewell/NARGIS /[id number]
--- NOTE | 2019-05-16 13:01 | Progress Note ---
DATE: 05/16/2019 CONSULTANTS: 1. Dr. Amin with Cardiology. 2. Dr. Silvestre Pham with [employer]. CHIEF COMPLAINT: Acute respiratory distress. SUBJECTIVE: The patient remains in ICU with nasal cannula. Shortness of breath is improved, NG tube in place. Denies any chest pain, shortness of breath, fever, or chills. Generalized edema seems to be improving with aggressive diuresis. PHYSICAL EXAMINATION: VITAL SIGNS: Temperature 97.0, pulse is 67, respirations 17, blood pressure 103/77, pulse ox is 99% on nasal cannula. GENERAL: No acute distress. HEENT: Normocephalic, atraumatic. NECK: Supple. CARDIOVASCULAR: Irregular rate and rhythm. LUNGS: Wheezing and crackles. ABDOMEN: Soft and nontender. NEURO: Alert, awake and oriented x2-3. MUSCULOSKELETAL: Moves all extremities, +2 edema. SKIN: Multiple scabs and lacerations and pressure ulcer on the sacrum. PSYCH: She is calm. : Landaverde in place. LABORATORY DATA: WBC 4.86, hemoglobin 8.0, hematocrit 27.6, platelet is 160. Sodium 144, potassium 3.2, CO2 of 32, BUN is 19, creatinine 1.37, estimated GFR 39. IMAGING DATA: Chest x-ray shows stable enlargement of the cardiac silhouette with prominent central pulmonary arteries, small right pleural effusion and probable mild passive atelectasis at the right lower lobe is unchanged. No acute osseous abnormality, partially visualized bone infarct versus chondroma of the right humerus. IMPRESSION: 1. Acute respiratory failure requiring intubation. Extubated yesterday. Likely due to healthcare acquired pneumonia versus congestive heart failure exacerbation. 2. Sepsis, present on admission due to pneumonia and urinary tract infection. Chest x-ray noted. Continue IV antibiotics and Dr. Pham with [employer] on the case. 3. Urinary tract infection with Klebsiella extended-spectrum beta-lactamases. We will continue on Merrem per sensitivity. 4. Acute kidney injury on chronic kidney disease, improving. Creatinine is 1.37. We will continue to monitor. 5. Hypokalemia. Likely due to diuresis. We will replace and recheck. 6. Paroxysmal atrial fibrillation. Rate controlled. Continue on heparin drip, cardiology is on the case. 7. Acute on chronic systolic congestive heart failure. Echocardiogram done, we will continue aggressive IV diuresis. Further recommendation per Cardiology. 8. Hypertension. We will treat as currently stable. We will treat as needed only. 9. Morbid obesity with BMI of 66. 10. History of hypothyroidism. On levothyroxine. 11. Multiple skin lacerations and scabs with pressure ulcer. Wound Care consulted. 12. Deep vein thrombosis prophylaxis. On heparin. PLAN: Continue IV antibiotics, IV fluids, NG tube in place. ST to evaluate swallowing. Further recommendations to follow. Dictated by GISSEL Lin Maritzaching Raoul Lambert MD [facility]/MODL /[id number]
--- NOTE | 2019-05-16 14:52 | Diagnostic Imaging Report ---
EXAM: CHEST SINGLE (PORTABLE) DATE: 05/16/2019 1:37 PM INDICATION: Pneumonia, CHF COMPARISON: 05/16/2019 at 0630 FINDINGS: Enteric tube noted coursing below the diaphragm. There are stable increased interstitial opacities present bilaterally as well as prominence of the central pulmonary vasculature suggestive of edema. There is a stable right pleural effusion and associated right basilar atelectasis, unchanged from the prior examination. There is no evidence for new large focal consolidation or pneumothorax. There is stable enlargement of the cardiac silhouette. No acute osseous abnormality is identified. IMPRESSION: No significant interval change from earlier 05/16/2019. Signed by: Dr. Ken Butcher MD on 05/16/2019 2:50 PM
[2019-05-16 15:02] LABS: ABG PH 7.46 (7.31-7.41)
[2019-05-16 15:03] LABS: ABG HCO3 33 mmol/L (23-28); ABG PCO2 47 mmHg (41-51); ABG PO2 72 mmHg (80-105)
--- NOTE | 2019-05-16 16:12 | Progress Note ---
DATE: 05/16/2019 SUBJECTIVE: The patient is afebrile. The patient is sitting upright in a chair. The patient is on a nasal cannula. She received Ativan in the middle of the night and is still sleepy. PHYSICAL EXAMINATION: VITAL SIGNS: The blood pressure is 102/53 and the saturation is 96%. The pulse is 64. HEENT: Shows no facial swelling or erythema. CARDIAC: Reveals regular rate and rhythm with normal S1 and S2. LUNGS: Auscultation of lungs reveals decreased breath sounds at the bases. There is no wheezing. ABDOMEN: Soft and nontender. There is no rebound or guarding. EXTREMITIES: Show no leg edema or calf tenderness. There is no cyanosis or clubbing. SKIN: Shows no rashes. NEUROLOGIC: Shows no focal abnormalities. RADIOGRAPHIC DATA: Chest x-ray shows small right pleural effusion and some atelectasis. LABORATORY DATA: BUN to creatinine ratio is 19 to 1.38 and the potassium is 3.2. White blood cell count is 4.8 and hemoglobin is 8. The platelet count is 160. IMPRESSION: 1. Kauyx-bw-eqvdgqq systolic congestive heart failure. 2. Healthcare associated pneumonia with severe sepsis, present on admission. 3. Morbid obesity. 4. Escherichia coli urinary tract infection. 5. Acute kidney injury. 6. Atrial fibrillation. PLAN: 1. Continue current antibiotics. 2. Repeat ABG and chest x-ray. 3. Continue current cardiac regimen. 4. Out of bed as tolerated. MD JENNIFFER Daly/NARGIS /[id number]
[2019-05-16] MEDS: AZITHROMYCIN 500MG/NS 250 ML 250 ML IV SCH (20:07)
[2019-05-17] VITALS (23 sets, daily range): BP systolic 73–121; BP diastolic 48–84
[2019-05-17 05:11] LABS: BASOPHILS % 0.5 % (0.0-1.0); EOSINOPHILS # (AUTO) 0.3 (0.0-0.4); EOSINOPHILS % 4.8 % (0.0-6.0); HEMATOCRIT 30.3 % (34.2-44.1); HEMOGLOBIN 8.5 g/dL (12.0-16.0); LYMPHOCYTES # (AUTO) 0.9 (1.0-3.2); LYMPHOCYTES % 15.7 % (18.0-39.1); MEAN CORPUSCULAR HEMOGLOBIN 22.5 pg (28-32); MEAN CORPUSCULAR HGB CONC 28.1 g/dL (31-35); MEAN CORPUSCULAR VOLUME 80.2 fL (81-99); MONOCYTES # (AUTO) 0.7 (0.2-0.8); MONOCYTES % 11.8 % (4.4-11.3); NEUTROPHILS # (AUTO) 3.7 (2.1-6.9); NEUTROPHILS % 66.7 % (38.7-80.0); PLATELET COUNT 163 x10e3/uL (140-360); RED BLOOD COUNT 3.78 x10e6/uL (3.6-5.1); RED CELL DISTRIBUTION WIDTH 19.6 % (11.7-14.4)
[2019-05-17 05:37] LABS: ALBUMIN 2.8 g/dL (3.5-5.0); ALBUMIN/GLOBULIN RATIO 0.9 (0.8-2.0); ANION GAP 10.1 mmol/L (8-16); CALCIUM 8.7 mg/dL (8.4-10.2); CREATININE, SERUM 1.21 mg/dL (0.57-1.11); POTASSIUM 3.1 mmol/L (3.5-5.1)
[2019-05-17] MEDS: MEROPENEM 1GM 100 ML IV SCH ×3 (06:25→21:42)
[2019-05-17] MEDS: LEVOTHYROXINE SODIUM 100 MCG TAB PO SCH (06:25)
[2019-05-17] MEDS ORDERED: POTASSIUM CHLORIDE 20MEQ/15ML UDC NG ONE (07:20)
[2019-05-17] MEDS: PANTOPRAZOLE 40 MG 10ML VIAL IV SCH (08:36)
[2019-05-17] MEDS: FUROSEMIDE INJ 10 MG/ML 4 ML VIAL IV SCH ×2 (08:36→16:55)
[2019-05-17 08:48] LABS: ANISOCYTOSIS SLIGHT; ELLIPTOCYTE, RBC SLIGHT; OVALOCYTES FEW; PLATELET ESTIMATE ADEQUATE; PLATELET MORPHOLOGY COMMENT NORMAL; RBC MORPHOLOGY COMMENT ABNORMAL; TEAR DROP CELLS FEW
[2019-05-17 08:51] LABS: HYPOCHROMASIA SLIGHT
[2019-05-17] MEDS ORDERED: HEPARIN 25,000 UNIT DRIP IV ONE (09:33)
[2019-05-17] MEDS: RISPERIDONE 0.5 MG TAB PO SCH ×2 (09:59→16:55)
[2019-05-17] MEDS: DULOXETINE HCL 30 MG DELAYED RELEASE PO SCH (09:59)
[2019-05-17] MEDS: HEPARIN 25,000 UNIT 1,000 UNIT in DEXTROSE 5% 250ML 250 ML IV SCH (10:27)
--- NOTE | 2019-05-17 12:23 | Progress Note ---
DATE: 05/17/2019 SUBJECTIVE: The patient feels better. She has less dyspnea. She has no fever. She is concerned about the wound on her knee. PHYSICAL EXAMINATION: VITAL SIGNS: The patient is afebrile. The blood pressure is 103/55 and the saturation is 98% on 3 L. Pulse is 72. HEENT: Shows no facial swelling or erythema. CARDIAC: Reveals a regular rate and rhythm with normal S1 and S2. LUNGS: Auscultation of lungs reveals decreased breath sounds at the bases. There is no wheezing. ABDOMEN: Soft and nontender. There is no rebound or guarding. EXTREMITIES: Shows a bandage over the left knee wound. LABORATORY DATA: The white blood cell count is 5.6 and the hemoglobin is 8.5. Platelet count is 163. BUN to creatinine ratio has improved to 17/1.21 and the potassium is 3.1. IMPRESSION: 1. Merkn-wu-nfwvvyq systolic congestive heart failure. 2. Healthcare-associated pneumonia with severe sepsis, present on admission. 3. Chronic wound on the left knee. 4. Extended-spectrum beta-lactamase producing Escherichia coli urinary tract infection. 5. Acute kidney injury. 6. Atrial fibrillation. PLAN: 1. Continue current antibiotics. 2. Wound care. 3. Continue current cardiac regimen. 4. Switch from IV heparin to Coumadin. 5. Physical therapy. Silvestre Pham MD [facility]/MODL /[id number]
[2019-05-17] MEDS ORDERED: WARFARIN SOD 5 MG TAB PO SCH (17:00)
--- NOTE | 2019-05-17 18:04 | Diagnostic Imaging Report ---
EXAMINATION: Left shoulder single AP view. CLINICAL HISTORY: Shoulder pain. COMPARISON: Portable chest 05/16/2019. Discussion: The osseous structures are intact without evidence of acute, displaced fracture or dislocation in this limited single view. No osteolytic or osteoblastic lesions. There is no evidence of a.c. separation. The glenohumeral joint is within normal limits. Mild degenerative changes in the acromioclavicular joint. The soft tissues are normal. IMPRESSION: 1. No acute abnormalities in this single view. Signed by: Dr. Austin Magaña M.D. on 05/17/2019 6:02 PM
--- NOTE | 2019-05-17 18:10 | Progress Note ---
DATE: 05/17/2019 Cardiology Progress Note SUBJECTIVE: No complaints. OBJECTIVE: VITAL SIGNS: Temperature 97.9, heart rate 74, blood pressure 106/60, respiratory rate 18, O2 saturation 97%. BMI 59.3. GENERAL: In no acute distress. NECK: No JVD. CHEST: Clear to auscultation. CARDIOVASCULAR: Irregularly irregular rate and rhythm. Normal S1, S2. ABDOMEN: Soft. Bowel sounds positive. EXTREMITIES: With trace edema. Left knee wound covered with dressings. Right foot wound covered with dressings. CARDIOVASCULAR MEDICATIONS: Reviewed. Furosemide 40 mg IV b.i.d., warfarin 5 mg daily started today, heparin IV. LABORATORY STUDIES: Reviewed. Creatinine 1.2, hemoglobin 8.5, stable, platelets 163. INR 1.3. ASSESSMENT AND PLAN: A 63-year-old woman presents with acute on chronic diastolic heart failure, atrial fibrillation, anemia, respiratory failure, pneumonia. Recommend continue current cardiovascular medications. Replete electrolytes as needed for target INR 2-3. MD BARB Sewell/NARGIS /[id number]
--- NOTE | 2019-05-17 18:28 | Diagnostic Imaging Report ---
EXAMINATION: Right/left shoulder single AP view. CLINICAL HISTORY: Shoulder pain. COMPARISON: None. . Discussion: Exam limited by soft tissue attenuation. The osseous structures are intact without evidence of acute, displaced fracture or dislocation. 2.0 cm mixed lucent and sclerotic nonaggressive appearing lesion in the metaphysis of the proximal humerus, with narrow zone of transition, without cortical destruction or mass effect. Degenerative changes in the acromioclavicular joint, with presence of an osteophyte in the inferior surface of the distal clavicle. The glenohumeral joint is grossly unremarkable. Soft tissues are unremarkable. IMPRESSION: 1. No acute abnormalities. 2. Degenerative changes in the common clavicular joint with presence of osteophyte in the inferior surface of the distal clavicle. This may result in impingement. Recommend MRI shoulder for further evaluation. 3. 2.0 cm mixed lucent and sclerotic nonaggressive appearing lesion in the proximal humerus likely representing an enchondroma,. Signed by: Dr. Austin Magaña M.D. on 05/17/2019 6:26 PM
[2019-05-18] VITALS (13 sets, daily range): BP systolic 107–145; BP diastolic 50–92
[2019-05-18] MEDS: CYCLOBENZAPRINE HCL 10 MG TAB PO PRN (00:19)
[2019-05-18 05:13] LABS: BASOPHILS % 0.7 % (0.0-1.0); EOSINOPHILS # (AUTO) 0.4 (0.0-0.4); EOSINOPHILS % 6.7 % (0.0-6.0); HEMATOCRIT 29.3 % (34.2-44.1); HEMOGLOBIN 8.3 g/dL (12.0-16.0); LYMPHOCYTES # (AUTO) 1.1 (1.0-3.2); LYMPHOCYTES % 20.7 % (18.0-39.1); MEAN CORPUSCULAR HEMOGLOBIN 22.6 pg (28-32); MEAN CORPUSCULAR HGB CONC 28.3 g/dL (31-35); MEAN CORPUSCULAR VOLUME 79.6 fL (81-99); MONOCYTES # (AUTO) 0.7 (0.2-0.8); MONOCYTES % 12.8 % (4.4-11.3); NEUTROPHILS # (AUTO) 3.2 (2.1-6.9); NEUTROPHILS % 58.9 % (38.7-80.0); PLATELET COUNT 168 x10e3/uL (140-360); RED BLOOD COUNT 3.68 x10e6/uL (3.6-5.1); RED CELL DISTRIBUTION WIDTH 19.6 % (11.7-14.4)
[2019-05-18 05:23] LABS: INR 1.15; PROTHROMBIN TIME 15.4 seconds (11.9-14.5)
[2019-05-18 05:34] LABS: ALBUMIN 2.8 g/dL (3.5-5.0); ALBUMIN/GLOBULIN RATIO 0.9 (0.8-2.0); CREATININE, SERUM 1.16 mg/dL (0.57-1.11)
[2019-05-18 05:54] LABS: MAGNESIUM 1.5 MG/DL (1.3-2.1)
[2019-05-18] MEDS: MEROPENEM 1GM 100 ML IV SCH ×2 (06:03→14:18)
[2019-05-18] MEDS: LEVOTHYROXINE SODIUM 100 MCG TAB PO SCH (06:03)
[2019-05-18 06:08] LABS: THYROID STIMULATING HORMONE 3.006 uIU/mL (0.350-4.940)
--- NOTE | 2019-05-18 07:23 | Diagnostic Imaging Report ---
Examination: Single AP view of the chest. COMPARISON: None. INDICATION: Shortness of breath DISCUSSION: See impression IMPRESSION: 1. Enteric tube has been removed. 2. Lungs remain well-inflated. Worsening airspace disease in the right lung base which may reflect atelectasis, aspiration, or pneumonia with background pleural effusion. No new consolidations. 3. Stable enlargement of the cardiac silhouette with interstitial pulmonary edema. Signed by: Dr. Khoa Mahoney M.D. on 05/18/2019 7:21 AM
[2019-05-18 08:17] LABS: HYPOCHROMASIA MODERATE; RBC MORPHOLOGY COMMENT ABNORMAL
[2019-05-18] MEDS: FUROSEMIDE INJ 10 MG/ML 4 ML VIAL IV SCH ×2 (08:35→16:31)
[2019-05-18] MEDS: PANTOPRAZOLE 40 MG 10ML VIAL IV SCH (08:35)
[2019-05-18] MEDS: DULOXETINE HCL 30 MG DELAYED RELEASE PO SCH (08:36)
[2019-05-18] MEDS: RISPERIDONE 0.5 MG TAB PO SCH (08:37)
[2019-05-18] MEDS ORDERED: POTASSIUM CHLORIDE 20 MEQ TAB CR PO ONE (09:00)
[2019-05-18] MEDS: HEPARIN 25,000 UNIT 1,000 UNIT in DEXTROSE 5% 250ML 250 ML IV SCH (09:35)
--- NOTE | 2019-05-18 10:18 | Progress Note ---
DATE: 05/18/2019 SUBJECTIVE: The patient feels better. She has less congestion. She still complains of a wound on her knee. She is receiving heparin for atrial fibrillation. OBJECTIVE: VITAL SIGNS: The patient is afebrile. Vital signs are stable. HEENT: Shows no facial swelling or erythema. CARDIAC: Reveals a regular rate and rhythm with normal S1 and S2. There are no murmurs or rubs. LUNGS: Auscultation of lungs reveals clear breath sounds bilaterally. There is no wheezing. ABDOMEN: Soft, nontender. There is no rebound or guarding. EXTREMITIES: Shows a wound over the left knee. ASSESSMENT: 1. Acute on chronic systolic congestive heart failure. 2. Healthcare-associated pneumonia with severe sepsis, present on admission. 3. Chronic left knee wound. 4. Extended spectrum beta-lactamase producing E. coli urinary tract infection. 5. Acute kidney injury. 6. Atrial fibrillation. PLAN: 1. Continue heparin. The patient is being started on warfarin. 2. Complete antibiotics. 3. Wound care. 4. Physical therapy. 5. Transfer out of intensive care unit. Silvestre Pham MD [facility]/MODL /[id number]
--- NOTE | 2019-05-18 12:14 | Progress Note ---
DATE: 05/18/2019 Cardiology Progress Note SUBJECTIVE: No new complaints. OBJECTIVE: VITAL SIGNS: Temperature 98 degrees, heart rate 84, blood pressure 145/92, respiratory rate 22, O2 saturation 97%, BMI 59. GENERAL: No acute distress, alert. NECK: No JVD. CHEST: Clear to auscultation. CARDIOVASCULAR: Regular rate and rhythm. Normal S1 and S2. No S3 or S4. ABDOMEN: Soft. Bowel sounds positive. EXTREMITIES: No edema. CARDIOVASCULAR MEDICATIONS: Reviewed. Furosemide 40 mg b.i.d., warfarin 5 mg daily. STUDIES: Reviewed. Creatinine 1.1, potassium 3, bicarbonate 36, hemoglobin 8.3, platelets 168. ASSESSMENT: A 63-year-old woman presents with acute on chronic diastolic heart failure, pneumonia, acute respiratory failure, atrial fibrillation, anemia, morbid obesity, left back, knee wound, right foot wound. RECOMMENDATIONS: 1. Continue current cardiovascular medications. Monitor INR for target 2-3. 2. Continue rest of cardiovascular medications. At this point, seems close to euvolemic. Replete potassium as needed. Dylan Ventura MD [facility]/MODL /[id number]
--- NOTE | 2019-05-18 16:46 | Consultation ---
DATE OF CONSULTATION: 05/18/2019 Wound Consultation SUBJECTIVE: Thank you Dr. Lambert, for asking me to see this patient. HISTORY OF PRESENT ILLNESS: A 63-year-old morbidly obese female patient, admitted with respiratory failure, history of chronic atrial fibrillation, congestive heart failure. The patient sustained a fall in March with a left knee wound, nonhealing since then. Wound consult was called. PAST MEDICAL HISTORY: Atrial fibrillation, congestive heart failure, morbid obesity, diastolic and systolic heart failure. ALLERGIES: PENICILLIN, SULFA, FENTANYL, MORPHINE, OXYCODONE. PAST SURGICAL HISTORY: Hysterectomy, bilateral knee surgery. PHYSICAL EXAMINATION: VITAL SIGNS: Height 66 inches, weight 368 pounds, BMI 59. HEENT: Normal. NECK: No JVD. LUNGS: Bilateral air entry diminished. CVS: Normal. ABDOMEN: Protuberant. RECTAL: Rectal wall edema present to the sacrum, abdominal wall type. LOWER EXTREMITIES: Trace edema present. SKIN: Left anterior knee, patient has healing wound with 100% granulation measures 6 x 3 cm. There is a small depth medial end of the wound for 0.5 cm. No fistula sinus noted. The wound margin attached to base and no signs of cellulitis noted. ASSESSMENT: 1. Left knee wound, posttraumatic. 2. Morbid obesity. PLAN: We will continue the Puracol and nonadhesive dressing 4 x 4 and tape. Thank you for consultation. We will Follow up. MD JORGE Chavez/CHAZL /[id number]
[2019-05-18] MEDS ORDERED: POTASSIUM CHLORIDE 20 MEQ TAB CR PO NR (17:00)
[2019-05-18] MEDS ORDERED: MAGNESIUM SULFATE 2GM/50ML 50 ML IV ONE (17:00)
[2019-05-18] MEDS: WARFARIN SOD 5 MG TAB PO SCH (17:20)
[2019-05-18] MEDS: LACTOBACILLUS ACIDOPHILUS CAPSULE PO SCH (17:20)
[2019-05-19] VITALS (7 sets, daily range): BP systolic 116–131; BP diastolic 61–72
[2019-05-19] MEDS: CYCLOBENZAPRINE HCL 10 MG TAB PO PRN (04:14)
[2019-05-19] MEDS: LEVOTHYROXINE SODIUM 100 MCG TAB PO SCH (06:28)
[2019-05-19 06:33] LABS: BASOPHILS % 0.3 % (0.0-1.0); EOSINOPHILS # (AUTO) 0.3 (0.0-0.4); EOSINOPHILS % 5.7 % (0.0-6.0); HEMATOCRIT 29.4 % (34.2-44.1); HEMOGLOBIN 8.3 g/dL (12.0-16.0); MEAN CORPUSCULAR HEMOGLOBIN 22.1 pg (28-32); MEAN CORPUSCULAR HGB CONC 28.2 g/dL (31-35); MEAN CORPUSCULAR VOLUME 78.2 fL (81-99); MONOCYTES # (AUTO) 0.8 (0.2-0.8); MONOCYTES % 12.6 % (4.4-11.3); NEUTROPHILS # (AUTO) 3.9 (2.1-6.9); NEUTROPHILS % 64.1 % (38.7-80.0); PLATELET COUNT 155 x10e3/uL (140-360); RED BLOOD COUNT 3.76 x10e6/uL (3.6-5.1); RED CELL DISTRIBUTION WIDTH 19.4 % (11.7-14.4)
[2019-05-19 06:42] LABS: INR 1.05; PROTHROMBIN TIME 14.4 seconds (11.9-14.5)
[2019-05-19 06:50] LABS: ANION GAP 11.4 mmol/L (8-16); CALCIUM 9.1 mg/dL (8.4-10.2); CREATININE, SERUM 1.01 mg/dL (0.57-1.11); MAGNESIUM 1.6 MG/DL (1.3-2.1); POTASSIUM 3.4 mmol/L (3.5-5.1)
--- NOTE | 2019-05-19 07:50 | Diagnostic Imaging Report ---
EXAMINATION: CHEST SINGLE (PORTABLE) COMPARISON: Chest x-ray 0610 hours INDICATION: ^SOB ^[id number] ^[id number] DISCUSSION: Frontal view of the chest obtained at 0622 hours. HEART AND MEDIASTINUM: Stable cardiomegaly and aortic tortuosity. Pulmonary arteries are enlarged and stable in morphology LINES: None. LUNGS: Right upper and lower lobe airspace opacities and right pleural effusion are stable. Left lung is clear. PLEURA: No pneumothorax. BONES AND SOFT TISSUES: No focal osseous lesion. The soft tissues are normal. IMPRESSION: Stable right pleural effusion and underlying atelectasis/infiltrate. Stable right upper lobe infiltrate. Stable cardiomegaly and prominent pulmonary arteries suggestive of pulmonary artery hypertension. Signed by: Dr. Mari Hernandez MD on 05/19/2019 7:47 AM
[2019-05-19] MEDS: DULOXETINE HCL 30 MG DELAYED RELEASE PO SCH (08:47)
[2019-05-19] MEDS: FUROSEMIDE INJ 10 MG/ML 4 ML VIAL IV SCH ×2 (08:47→17:21)
[2019-05-19] MEDS: LACTOBACILLUS ACIDOPHILUS CAPSULE PO SCH ×2 (08:47→17:21)
[2019-05-19 09:31] LABS: HYPOCHROMASIA SLIGHT; RBC MORPHOLOGY COMMENT ABNORMAL
[2019-05-19] MEDS: WARFARIN SOD 5 MG TAB PO SCH (17:21)
[2019-05-19] MEDS: HEPARIN 25,000 UNIT 1,000 UNIT in DEXTROSE 5% 250ML 250 ML IV SCH (17:21)
[2019-05-19] MEDS: NYSTATIN 15 GM POWDER UD BTL TOP SCH (17:22)
--- NOTE | 2019-05-19 17:51 | Progress Note ---
DATE: 05/19/2019 SUBJECTIVE: The patient complains of diarrhea. Her breathing is improved and she is off oxygen. PHYSICAL EXAMINATION: VITAL SIGNS: The patient is afebrile. The vital signs are stable. HEENT: Shows no facial swelling or erythema. CARDIAC: Reveals regular rate and rhythm with normal S1 and S2. LUNGS: Auscultation of lungs reveals clear breath sounds bilaterally. There is no wheezing. ABDOMEN: Soft and nontender. There is no rebound or guarding. EXTREMITIES: Shows no leg edema or calf tenderness. There is no cyanosis or clubbing. SKIN: Shows no rashes. IMPRESSION: 1. Extended-spectrum beta-lactamase producing Klebsiella urinary tract infection. 2. Diarrhea. 3. Resolving pneumonia. 4. Acute kidney injury. 5. Atrial fibrillation. PLAN: 1. The patient has completed a course of Merrem for the Klebsiella UTI. 2. Vancomycin for diarrhea. 3. Continue physical therapy. 4. Continue to monitor electrolytes BUN and creatinine. 5. Repeat chest x-ray in the a.m. Silvestre Pham MD [facility]/MODL /[id number]
[2019-05-19] MEDS: VANCOMYCIN 250MG/5ML ORAL SOLN PO SCH (18:01)
--- NOTE | 2019-05-19 21:31 | Progress Note ---
DATE: 05/19/2019 Cardiology Progress Note SUBJECTIVE: No complaints today. OBJECTIVE: VITAL SIGNS: Temperature 99.4, heart rate 110, blood pressure 121/63, respiratory rate 20, O2 saturation 96%. BMI 59.3. GENERAL: No acute distress, alert. NECK: No JVD. CHEST: Clear to auscultation. CARDIOVASCULAR: Irregularly irregular rate and rhythm. Normal S1, S2. Systolic ejection murmur 1/6. No S3 or S4. ABDOMEN: Soft. Bowel sounds positive. CARDIOVASCULAR MEDICATIONS: Warfarin 7.5 mg daily, furosemide 40 mg b.i.d. STUDIES: Reviewed. Creatinine 1.01, potassium 3.4, bicarbonate 36, sodium 138. White blood cells 6, hemoglobin 8.3, platelets 155. INR 1.05. ASSESSMENT AND PLAN: Atrial fibrillation, aomzo-qt-xqcbwsy diastolic heart failure, pneumonia, volume overload, and left knee wound. RECOMMEND: Continue current cardiovascular medications and particular attention to INR trend. Current dose warfarin 7.5 daily. Consider further up-titration to 10 mg daily if over the next 2 days no significant increase is observed. Dylan Ventura MD [facility]/MODL /[id number]
[2019-05-20] VITALS (7 sets, daily range): BP systolic 114–130; BP diastolic 64–76
[2019-05-20] MEDS: VANCOMYCIN 250MG/5ML ORAL SOLN PO SCH ×5 (00:06→23:37)
[2019-05-20] MEDS ORDERED: BISMUTH SUBSALICYLATE 262 MG/15 ML 8OZ BTL PO PRN (01:00)
--- NOTE | 2019-05-20 02:42 | Progress Note ---
DATE: 05/19/2019 Medicine Attending Progress Note Coverage for Dr. Raoul Lambert. SUBJECTIVE: The patient with Landaverde catheter in place. She is with some diarrhea that is actually bothersome to her. She is eating well, however. . She is on heparin IV, but there is no gross bleeding noted. Room air FiO2, although 3 L of oxygen is on standby. REVIEW OF SYSTEMS: No headaches, no double vision. OBJECTIVE: VITAL SIGNS: Afebrile, vital signs noted and reviewed per the chart and record. GENERAL: In no acute distress, in bed, although she is currently tired. HEENT: Normocephalic, atraumatic. NECK: Supple. Throat midline. LUNGS: Bilateral air entry, mostly clear. CARDIOVASCULAR: S1, S2. No murmurs, rubs, or gallops. ABDOMEN: Soft, nontender. EXTREMITIES: No clubbing, no cyanosis. There is no to trace edema. INTEGUMENT: No rash. No purpura on superficial evaluations. LABORATORY DATA: Recent BUN 11, creatinine 1.0, 3.4 potassium with 36 bicarbonate. 6 white count, hematocrit, 155 platelets. Chest x-ray demonstrates right lung base atelectasis versus pneumonia versus effusion, moderate size. Some alveolar airspace disease suggestive of possible mild overload, cardiomegaly. IMPRESSION AND PLAN: 1. Acute respiratory failure, resolving, extubated. 2. Atrial fibrillation. 3. Abhje-ov-yzkayyt diastolic heart failure. 4. Pneumonia. 5. Additional volume overload. 6. Left knee wound, debility and difficulty walking. 7. Diarrhea. 8. Morbid obesity. 9. Urinary tract infection. At this point, the patient will continue current treatment including potassium repletion. Some powdered antifungal for intertrigo. Continue warfarin and followup of INR. The patient as well will continue on antibiotics for pneumonia/urinary tract infection. There is also intermediate facility as I understand per the patient. We will follow along closely. MD BEAU Briceño/NARGIS /[id number]
[2019-05-20] MEDS ORDERED: SODIUM CHLORIDE 0.9% 250ML 250 ML ONE (04:02)
[2019-05-20] MEDS: NYSTATIN 15 GM POWDER UD BTL TOP SCH ×2 (06:11→17:09)
[2019-05-20] MEDS: LEVOTHYROXINE SODIUM 100 MCG TAB PO SCH (06:17)
--- NOTE | 2019-05-20 07:30 | Diagnostic Imaging Report ---
EXAMINATION: PA and lateral views of the chest. COMPARISON: May 10, 2019 CLINICAL HISTORY: Right-sided effusion DISCUSSION: Lines/tubes: None. Lungs: Pulmonary venous congestion. Pleura: Right pleural effusion and airspace opacity. Heart and mediastinum: Cardiomegaly Bones and soft tissues: No acute bony abnormalities. IMPRESSION: Cardiomegaly with pulmonary venous congestion Right pleural effusion and airspace opacity, decreased versus differences in technique. Signed by: Dr. Raoul Leiva M.D. on 05/20/2019 7:27 AM
[2019-05-20 07:51] LABS: INR 1.1; PROTHROMBIN TIME 14.9 seconds (11.9-14.5)
[2019-05-20] MEDS ORDERED: POTASSIUM CHLORIDE 20MEQ/100ML 100 ML IV ONE (08:00)
[2019-05-20] MEDS: DULOXETINE HCL 30 MG DELAYED RELEASE PO SCH (08:33)
[2019-05-20] MEDS: FUROSEMIDE INJ 10 MG/ML 4 ML VIAL IV SCH ×2 (08:33→17:00)
[2019-05-20] MEDS: LACTOBACILLUS ACIDOPHILUS CAPSULE PO SCH ×2 (08:33→17:09)
[2019-05-20] MEDS: HEPARIN 25,000 UNIT 1,000 UNIT in DEXTROSE 5% 250ML 250 ML IV SCH (09:35)
--- NOTE | 2019-05-20 12:05 | Progress Note ---
DATE: 05/20/2019 SUBJECTIVE: The patient has less diarrhea. She was able to stand a little yesterday. PHYSICAL EXAMINATION: VITAL SIGNS: Stable. HEENT: Shows no facial swelling or erythema. CARDIAC: Reveals regular rate and rhythm with normal S1 and S2. LUNGS: Auscultation of lungs reveals clear breath sounds bilaterally. There is no wheezing. ABDOMEN: Soft, nontender. There is no rebound or guarding. EXTREMITIES: Show no leg edema or calf tenderness. There is no cyanosis or clubbing. SKIN: Shows no rashes. NEUROLOGIC: Shows no focal abnormalities. IMPRESSION: 1. Extended-spectrum beta-lactamase producing Klebsiella urinary tract infection. 2. Diarrhea. 3. Resolving pneumonia. 4. Acute kidney injury. 5. Atrial fibrillation. PLAN: 1. Continue treatment for diarrhea. 2. Out of bed as tolerated. 3. Physical therapy. 4. Continue anticoagulation. 5. Continue current cardiac regimen. Silvestre Pham MD [facility]/NARGIS /[id number]
[2019-05-20] MEDS: CYCLOBENZAPRINE HCL 10 MG TAB PO PRN ×2 (15:40→23:38)
[2019-05-20] MEDS: WARFARIN SOD 5 MG TAB PO SCH (17:00)
[2019-05-20] MEDS ORDERED: HEPARIN 25,000 UNIT DRIP IV ONE (17:17)
--- NOTE | 2019-05-20 23:47 | Progress Note ---
DATE: 05/20/2019 Cardiology Progress Note SUBJECTIVE: Denies chest pain or shortness of breath. OBJECTIVE: VITAL SIGNS: Temperature 100.6, heart rate 100, blood pressure 114/69, respiratory rate 20, and O2 saturation 98%. GENERAL: In no acute distress. Alert. NECK: No JVD. CHEST: Clear to auscultation. CARDIOVASCULAR: Irregular rate and rhythm. Normal S1 and S2. No S3 or S4. ABDOMEN: Soft. Bowel sounds positive. EXTREMITIES: Trace edema. Left knee wound covered with dressings. Cardiovascular medications reviewed. Warfarin 7.5 mg daily and furosemide 40 mg IV b.i.d. LABORATORY DATA: Studies reviewed. Potassium 3.4, bicarbonate 36, and creatinine 1.01. White blood cells 6.01, hemoglobin 8.3, and platelets 155. INR 1.1. ASSESSMENT: A 63-year-old woman presents with pneumonia, acute on chronic diastolic heart failure, anemia, and paroxysmal atrial fibrillation. PLAN: 1. Increasing warfarin to 10 mg daily and monitor INR for target 2-3. 2. Monitor hemoglobin and hematocrit. 3. Decrease Lasix to 40 mg IV once a day. MD BARB Sewell/NARGIS /[id number]
[2019-05-21] VITALS (8 sets, daily range): BP systolic 100–138; BP diastolic 60–82
[2019-05-21 05:58] LABS: INR 1.15; PROTHROMBIN TIME 15.5 seconds (11.9-14.5)
[2019-05-21 05:59] LABS: PARTIAL THROMBOPLASTIN TIME 49.6 seconds (23.8-35.5)
[2019-05-21] MEDS: VANCOMYCIN 250MG/5ML ORAL SOLN PO SCH ×3 (06:00→17:01)
[2019-05-21] MEDS: LEVOTHYROXINE SODIUM 100 MCG TAB PO SCH (06:00)
[2019-05-21 06:16] LABS: ALBUMIN 3.2 g/dL (3.5-5.0); ALBUMIN/GLOBULIN RATIO 0.9 (0.8-2.0); ANION GAP 15.3 mmol/L (8-16); CALCIUM 9.6 mg/dL (8.4-10.2); CREATININE, SERUM 1.12 mg/dL (0.57-1.11); MAGNESIUM 1.6 MG/DL (1.3-2.1); POTASSIUM 3.3 mmol/L (3.5-5.1)
[2019-05-21 06:55] LABS: PHOSPHORUS 2.9 MG/DL (2.3-4.7)
[2019-05-21] MEDS: DULOXETINE HCL 30 MG DELAYED RELEASE PO SCH (08:56)
[2019-05-21] MEDS: NYSTATIN 15 GM POWDER UD BTL TOP SCH ×2 (08:56→17:00)
[2019-05-21] MEDS: LACTOBACILLUS ACIDOPHILUS CAPSULE PO SCH ×2 (08:56→17:00)
[2019-05-21] MEDS: FUROSEMIDE INJ 10 MG/ML 4 ML VIAL IV SCH (08:56)
[2019-05-21] MEDS: CYCLOBENZAPRINE HCL 10 MG TAB PO PRN (09:06)
[2019-05-21] MEDS: METOPROLOL SUCCINATE 25 MG TAB XL PO SCH (09:06)
[2019-05-21] MEDS ORDERED: MAGNESIUM SULFATE 2GM/50ML IV ONE (09:30)
[2019-05-21] MEDS ORDERED: MAGNESIUM SULFATE 2GM/50ML 50 ML IV ONE (09:30)
--- NOTE | 2019-05-21 09:58 | Progress Note ---
DATE: 05/21/2019 SUBJECTIVE: The patient has less diarrhea. She still has some temperature of 99.7. She is having less dyspnea and is down to 2 L of oxygen. PHYSICAL EXAMINATION: VITAL SIGNS: The patient is afebrile. The blood pressure is 136/81 and the pulse is 100-110. HEENT: Shows no facial swelling or erythema. CARDIAC: Reveals regular rate and rhythm with normal S1 and S2. LUNGS: Auscultation of lungs reveals clear breath sounds bilaterally. There is no wheezing. ABDOMEN: Soft and nontender. There is no rebound or guarding. EXTREMITIES: Show no leg edema or calf tenderness. There is no cyanosis or clubbing. RADIOGRAPHIC DATA: Chest x-ray shows cardiomegaly and some venous congestion. There is a decreasing right pleural effusion. IMPRESSION: 1. Atrial fibrillation with rapid ventricular response. 2. Extended-spectrum beta-lactamase producing Klebsiella urinary tract infection. 3. Antibiotic associated diarrhea. 4. Acute kidney injury. 5. Healing wound on the medial aspect of the right leg. PLAN: 1. Out of bed today as tolerated. 2. Continue to monitor blood counts and temperature. 3. Continue current antibiotic regimen. 4. Continue to monitor pro-time and anticoagulation. Silvestre Pham MD [facility]/NARGIS /[id number]
[2019-05-21] MEDS ORDERED: POTASSIUM CHLORIDE 20 MEQ TAB CR PO ONE (10:15)
--- NOTE | 2019-05-21 12:28 | Progress Note ---
DATE: 05/21/2019 SUBJECTIVE: Denies chest pain or shortness of breath. OBJECTIVE: VITAL SIGNS: Temperature 99.7, heart rate 140, respiratory rate 18, blood pressure 136/81, O2 saturation 95% on nasal cannula. GENERAL: In no acute distress. Alert. NECK: No JVD. CHEST: Clear to auscultation. CARDIOVASCULAR: Irregularly irregular rate and rhythm. Normal S1, S2. ABDOMEN: Soft. Bowel sounds positive. EXTREMITIES: Trace edema. CARDIOVASCULAR MEDICATIONS: Reviewed. Metoprolol succinate 25 mg daily starting today, furosemide 40 mg IV daily, warfarin 10 mg daily. STUDIES: Reviewed. White blood cells 6, hemoglobin 8.3, platelets are 155. INR 1.15. Sodium 140, potassium 3.3, chloride 93, bicarbonate 35, BUN 9, creatinine 1.1, glucose 95, calcium 9.6, magnesium 1.6, phosphorus 2.9. ASSESSMENT AND PLAN: 1. Hypokalemia and hypomagnesemia. 2. Reported allergy to statins. 3. Atrial fibrillation. 4. Jvhbh-dr-rhbeefl diastolic heart failure. 5. Left knee wound. 6. Status post pneumonia and sepsis. RECOMMENDATIONS: 1. Continue current cardiovascular medications, warfarin recently uptitrated for 10 mg daily, target INR 2-3. 2. Approaching euvolemic state. Continue with low-dose diuretic. Transition to p.o. prior to discharge. 3. Heparin bridge ongoing given BMI of 59.4, unable to switch to Lovenox at this point. 4. Rate control with metoprolol, up titrate as tolerated. 5. Replete electrolytes. Dylan Ventura MD [facility]/MODL /[id number]
[2019-05-21] MEDS: WARFARIN SOD 5 MG TAB PO SCH (17:00)
[2019-05-21] MEDS ORDERED: HEPARIN 25,000 UNIT 1,000 UNIT in DEXTROSE 5% 250ML 250 ML IV SCH (18:15)
[2019-05-21] MEDS: HEPARIN 25,000 UNIT 1,000 UNIT in DEXTROSE 5% 250ML 250 ML IV SCH (22:35)
[2019-05-21] MEDS ORDERED: HEPARIN 25,000 UNIT DRIP IV ONE (22:37)
[2019-05-22] VITALS (7 sets, daily range): BP systolic 96–131; BP diastolic 61–97
[2019-05-22] MEDS: CYCLOBENZAPRINE HCL 10 MG TAB PO PRN ×2 (00:20→21:10)
[2019-05-22 05:41] LABS: BASOPHILS # (AUTO) 0.1 (0.0-0.1); BASOPHILS % 0.6 % (0.0-1.0); EOSINOPHILS # (AUTO) 0.4 (0.0-0.4); EOSINOPHILS % 4.1 % (0.0-6.0); HEMATOCRIT 32.4 % (34.2-44.1); HEMOGLOBIN 9.3 g/dL (12.0-16.0); LYMPHOCYTES # (AUTO) 1.1 (1.0-3.2); LYMPHOCYTES % 13.4 % (18.0-39.1); MEAN CORPUSCULAR HEMOGLOBIN 22.5 pg (28-32); MEAN CORPUSCULAR HGB CONC 28.7 g/dL (31-35); MEAN CORPUSCULAR VOLUME 78.3 fL (81-99); MONOCYTES # (AUTO) 0.9 (0.2-0.8); MONOCYTES % 11.1 % (4.4-11.3); NEUTROPHILS % 70.4 % (38.7-80.0); PLATELET COUNT 160 x10e3/uL (140-360); RED BLOOD COUNT 4.14 x10e6/uL (3.6-5.1); RED CELL DISTRIBUTION WIDTH 19.5 % (11.7-14.4)
[2019-05-22 06:05] LABS: ALBUMIN 3.2 g/dL (3.5-5.0); ALBUMIN/GLOBULIN RATIO 0.8 (0.8-2.0); ANION GAP 13.8 mmol/L (8-16); CALCIUM 9.7 mg/dL (8.4-10.2); CREATININE, SERUM 1.18 mg/dL (0.57-1.11); POTASSIUM 3.8 mmol/L (3.5-5.1)
[2019-05-22 06:06] LABS: INR 1.29; PROTHROMBIN TIME 16.9 seconds (11.9-14.5)
[2019-05-22] MEDS: LEVOTHYROXINE SODIUM 100 MCG TAB PO SCH (06:38)
[2019-05-22] MEDS: VANCOMYCIN 250MG/5ML ORAL SOLN PO SCH ×4 (06:38→16:55)
[2019-05-22] MEDS: DULOXETINE HCL 30 MG DELAYED RELEASE PO SCH ×2 (08:36→20:27)
[2019-05-22] MEDS: LACTOBACILLUS ACIDOPHILUS CAPSULE PO SCH ×2 (08:36→16:54)
[2019-05-22] MEDS: METOPROLOL SUCCINATE 25 MG TAB XL PO SCH (08:36)
[2019-05-22] MEDS: FUROSEMIDE INJ 10 MG/ML 4 ML VIAL IV SCH (08:36)
[2019-05-22] MEDS: NYSTATIN 15 GM POWDER UD BTL TOP SCH ×2 (08:38→16:54)
[2019-05-22] MEDS ORDERED: METOPROLOL SUCCINATE 25 MG TAB XL PO SCH (10:15)
--- NOTE | 2019-05-22 10:57 | Progress Note ---
DATE: 05/22/2019 Cardiology Progress Note SUBJECTIVE: Denies any chest pain or shortness of breath. OBJECTIVE: VITAL SIGNS: Temperature 99 degrees, heart rate 136, respiratory rate 22, blood pressure 122/81, and O2 saturation 93%. BMI 59. GENERAL: In no acute distress. Alert. NECK: No JVD. CHEST: Clear to auscultation. CARDIOVASCULAR: Irregular rate and rhythm. Normal S1 and S2. No S3 or S4. ABDOMEN: Soft. Bowel sounds positive. EXTREMITIES: Trace edema. CARDIOVASCULAR MEDICATIONS: Reviewed. Furosemide 40 mg daily, warfarin 10 mg at bedtime, heparin IV drip, and metoprolol succinate 25 mg daily. LABORATORY DATA: Creatinine 1.1. Hemoglobin 9.3 and platelets 160. ASSESSMENT AND PLAN: A 63-year-old woman with pneumonia, cwaxt-lh-qjcgpaf diastolic heart failure, paroxysmal atrial fibrillation, morbid obesity, and left knee wound. RECOMMENDATIONS: 1. Continue current cardiovascular medications including warfarin for target INR 2 to 3. 2. I will titrate metoprolol to 25 mg every 12 hours. MD BARB Sewell/NARGIS /[id number]
[2019-05-22] MEDS ORDERED: METOPROLOL SUCCINATE 25 MG TAB XL PO ONE (11:15)
[2019-05-22] MEDS: WARFARIN SOD 5 MG TAB PO SCH (16:54)
[2019-05-22] MEDS: HEPARIN 25,000 UNIT 1,000 UNIT in DEXTROSE 5% 250ML 250 ML IV SCH (17:00)
--- NOTE | 2019-05-22 18:43 | Diagnostic Imaging Report ---
EXAMINATION: CHEST SINGLE (PORTABLE) INDICATION: fever COMPARISON: 05/20/2019 FINDINGS: AP view TUBES and LINES: None. LUNGS: Lungs are well inflated. There is perihilar interstital opacities, consistent with interstitial edema, unchanged. Increased right basilar opacity which could represent consolidation/pneumonia. PLEURA: No pleural effusion or pneumothorax. HEART AND MEDIASTINUM: Cardiac size is severely enlarged. BONES AND SOFT TISSUES: No acute osseous lesion. Soft tissues are unremarkable. UPPER ABDOMEN: No free air under the diaphragm. IMPRESSION: Unchanged cardiomegaly and interstitial edema. Increased right basilar opacity which could represent consolidation/pneumonia. Signed by: Jero Rondon MD on 05/22/2019 6:40 PM
[2019-05-22 19:23] LABS: BILIRUBIN,URINE NEGATIVE (NEGATIVE); CLARITY,URINE CLOUDY (CLEAR); COLOR,URINE ORANGE (YELLOW); KETONES,URINE NEGATIVE (NEGATIVE); LEUKOCYTE ESTERASE ,URINE TRACE (NEGATIVE); NITRITE,URINE NEGATIVE (NEGATIVE); PROTEIN,URINE DIPSTICK 2+ (NEGATIVE); URINE UROBILINOGEN 0.2 mg/dL (0.2 - 1)
[2019-05-22 19:35] LABS: BACTERIA,URINE MANY /HPF; EPITHELIAL CELLS,URINE FEW /LPF; RBC,URINE 21-50 /HPF (0-5); WBC,URINE (MAN) >50 /HPF (0-5)
--- NOTE | 2019-05-22 21:08 | Progress Note ---
DATE: 05/22/2019 CONSULTANTS: 1. Dr. Amin with Cardiology. 2. Dr. Silvestre Pham with aircraft engine installer. CHIEF COMPLAINT: Acute respiratory distress. SUBJECTIVE: The patient is seen resting in bed, reports severe anxiety. She denies any chest pain, shortness of breath, nausea, or vomiting. She is noted to have low-grade fever. She denies any cough or dysuria. She did have diarrhea in the past few days, but reports it is improved. PHYSICAL EXAMINATION: VITAL SIGNS: Temperature 99.8, pulse is 118, respirations 20, blood pressure 123/61, and pulse ox is 98% on room air. GENERAL: In no acute distress. Obese. HEENT: Normocephalic and atraumatic. NECK: Supple. CARDIOVASCULAR: Regular rate and rhythm. LUNGS: Decreased breath sounds. ABDOMEN: Soft and nontender. NEUROLOGIC: Alert, awake, and oriented x3. MUSCULOSKELETAL: Moves all extremities. No edema. SKIN: Multiple scabs and healing lacerations due to bedbound status. PSYCHIATRIC: Anxious and irritable. : Landaverde in place. LABORATORY DATA: WBC 8.49, hemoglobin 9.3, hematocrit 32.4, and platelet is 160. Sodium 138, potassium 3.8, creatinine 1.18, estimated GFR 46, total bilirubin 1.0, AST 23, and ALT 7. INR is 1.29 and PT is 16.9. C diff was negative. IMPRESSION: 1. Acute respiratory failure requiring intubation. Extubated and currently on nasal cannula. Treated for pneumonia versus congestive heart failure exacerbation with Lasix. 2. Sepsis, present on admission due to urinary tract infection. Completed IV antibiotics. 3. Urinary tract infection with Klebsiella ESBL. Completed Merrem per sensitivity. We will recheck UA for a low-grade fever. 4. Acute kidney injury on chronic kidney disease. Creatinine is 1.16. We will continue to trend. 5. History of paroxysmal atrial fibrillation, rate controlled. She is off heparin drip and started on Coumadin loading dose. Cardiology on the case. 6. Acute on chronic systolic congestive heart failure. Continue Lasix and further recommendations per Cardiology. 7. Hypertension. Resume beta blockers. 8. History of hypothyroidism. Continue on levothyroxine. 9. Multiple skin lacerations and scabs. Wound care on the case. 10. History of anxiety. We will resume Klonopin p.r.n. 11. Low-grade fever. We will recheck UA. 12. Deep vein thrombosis prophylaxis, on Coumadin. PLAN: To continue current treatment, we will check chest x-ray and UA for the low-grade fever. correction facility eval and placement pending. Dictated by GISSEL Lin Marietta Lambert MD MY/MODL /[id number]
[2019-05-22] MEDS: CLONAZEPAM 1 MG TAB PO PRN (21:10)
[2019-05-23] VITALS (8 sets, daily range): BP systolic 98–125; BP diastolic 60–78
[2019-05-23] MEDS: VANCOMYCIN 250MG/5ML ORAL SOLN PO SCH ×5 (00:40→23:02)
[2019-05-23 05:52] LABS: INR 1.49
[2019-05-23 05:53] LABS: PARTIAL THROMBOPLASTIN TIME 48.4 seconds (23.8-35.5)
[2019-05-23] MEDS: LEVOTHYROXINE SODIUM 100 MCG TAB PO SCH (06:10)
[2019-05-23] MEDS ORDERED: HEPARIN 25,000 UNIT 1,000 UNIT in DEXTROSE 5% 250ML 250 ML IV SCH (06:10)
[2019-05-23] MEDS: HEPARIN 25,000 UNIT 1,100 UNIT in DEXTROSE 5% 250ML 250 ML IV SCH ×2 (06:40→20:50)
[2019-05-23] MEDS: FUROSEMIDE INJ 10 MG/ML 4 ML VIAL IV SCH (08:24)
[2019-05-23] MEDS: DULOXETINE HCL 30 MG DELAYED RELEASE PO SCH ×2 (08:34→20:50)
[2019-05-23] MEDS: LACTOBACILLUS ACIDOPHILUS CAPSULE PO SCH ×2 (08:34→16:38)
[2019-05-23] MEDS: METOPROLOL SUCCINATE 25 MG TAB XL PO SCH ×2 (08:35→16:43)
[2019-05-23] MEDS: NYSTATIN 15 GM POWDER UD BTL TOP SCH ×2 (08:43→16:43)
[2019-05-23] MEDS ORDERED: METOPROLOL SUCCINATE 50 MG TAB XL PO SCH (09:00)
[2019-05-23] MEDS ORDERED: METOPROLOL SUCCINATE 25 MG TAB XL PO SCH (09:00)
[2019-05-23] MEDS: CLONAZEPAM 1 MG TAB PO PRN ×2 (12:26→23:00)
--- NOTE | 2019-05-23 14:12 | Progress Note ---
DATE: 05/23/2019 Cardiology Progress Note SUBJECTIVE: No complaints. OBJECTIVE: VITAL SIGNS: Temperature 100 degrees, heart rate 80 to 100 on my review on exam, blood pressure 117/74, respiratory rate 18, and O2 saturation 96%. BMI 59. GENERAL: In no acute distress. Alert. NECK: No JVD. CHEST: Clear to auscultation. CARDIOVASCULAR: Irregular rate and rhythm. Normal S1 and S2. No S3 or S4. ABDOMEN: Soft. Bowel sounds positive. EXTREMITIES: No edema. Left knee wound covered with dressings. CARDIOVASCULAR MEDICATIONS: Reviewed, on furosemide 40 mg daily, warfarin 10 mg daily, and metoprolol succinate 25 mg b.i.d. LABORATORY DATA: Creatinine 1.1, potassium 3.8, and bicarbonate 33. Hemoglobin 9.3, white blood cells 8.4, and platelets 160. INR 1.49. AST 23 and ALT 6. ASSESSMENT AND PLAN: A 63-year-old woman with paroxysmal atrial fibrillation, euerv-xo-vkmnshd diastolic heart failure, pneumonia, left knee wound, morbid obesity, and anemia. RECOMMEND: Continue current cardiovascular medications. INR is gradually trending to target range 2 to 3. Heparin bridge in the meantime. Volume status seems euvolemic at this point. Monitor renal function. MD BARB Sewell/CHAZL /[id number]
[2019-05-23] MEDS: DOXYCYCLINE HYCLATE TABLET 100 MG TAB PO SCH ×2 (16:37→20:50)
[2019-05-23] MEDS: WARFARIN SOD 5 MG TAB PO SCH (16:38)
--- NOTE | 2019-05-23 18:18 | Progress Note ---
DATE: 05/23/2019 CONSULTANTS: 1. Dr. Amin with Cardiology. 2. Dr. Silvestre Pham with gas station cashier. 3. Dr. Son with Wound Care. 4. Dr. Norwood with Psych. CHIEF COMPLAINT: Acute respiratory distress. SUBJECTIVE: The patient is more calmer today, denies any chest pain, shortness of breath, nausea, or vomiting. Reports Klonopin is helping with anxiety, but would like psychiatric evaluation for medical management. PHYSICAL EXAMINATION: VITAL SIGNS: Temperature 98.2, pulse is 102, respirations 18, blood pressure 104/60, and pulse ox is 98% on 2 L of oxygen. GENERAL: Fatigue. HEENT: Normocephalic and atraumatic. NECK: Supple. CARDIOVASCULAR: Regular rate and rhythm. LUNGS: Decreased breath sounds. ABDOMEN: Soft and nontender. NEUROLOGIC: Alert, awake, and oriented x3. MUSCULOSKELETAL: Moves all extremities. No edema. SKIN: With multiple scabs and healing lacerations in the decubitus. PSYCHIATRIC: Anxiety. : Landaverde in place. LABORATORY DATA: PT 19.0, INR 1.49, and APTT 48.4. UA cloudy with negative nitrites, trace leukocyte esterase, greater than 50 wbc's and bacteria, likely colonization. IMPRESSION: 1. Acute respiratory failure requiring intubation, now extubated. Currently on nasal cannula. Chest x-ray shows pneumonia versus congestive heart failure. Continue with Lasix and due to low-grade fever, we will start on doxycycline. 2. Sepsis, present on admission due to urinary tract infection versus pneumonia. Completed Merrem treatment. 3. Urinary tract infection with Klebsiella extended-spectrum beta-lactamase . Completed Merrem per sensitivity. Recheck UA shows negative nitrites and trace leukocyte esterase. 4. Acute kidney injury on chronic kidney disease. Creatinine stable. We will continue to monitor. 5. History of paroxysmal atrial fibrillation. Heart rate now slightly elevated. She is on loading dose of Coumadin 10 mg daily and heparin bridging. Per Cardiology on the case. 6. Psmnr-gb-zplhucd systolic congestive heart failure. Lasix has been decreased to 40 mg IV daily. 7. Hypertension. Resume beta blockers. 8. History of hypothyroidism. Continue levothyroxine. 9. Multiple skin laceration and scabs. Wound care has been consulted. 10. History of anxiety and depression. We will resume home medication and consult Psych per patient request. 11. Low-grade fever. Chest x-ray with possible pneumonia/congestive heart failure and UA recheck has improved. Started on doxycycline. 12. Deep vein thrombosis prophylaxis. Currently on Coumadin loading and heparin bridging. PLAN: To continue Coumadin. Continue treatment to get the INR in therapeutic range of 2 to 3. FDC thereafter. Dictated by GISSEL Lin Marietta Lambert MD MY/MODL /[id number]
[2019-05-23] MEDS ORDERED: HEPARIN 25,000 UNIT DRIP IV ONE (20:51)
[2019-05-23] MEDS: CYCLOBENZAPRINE HCL 10 MG TAB PO PRN (23:00)
[2019-05-24] VITALS (9 sets, daily range): BP systolic 98–138; BP diastolic 63–84
[2019-05-24] MEDS: LEVOTHYROXINE SODIUM 100 MCG TAB PO SCH (05:23)
[2019-05-24] MEDS: VANCOMYCIN 250MG/5ML ORAL SOLN PO SCH ×3 (05:23→18:00)
[2019-05-24] MEDS: IBUPROFEN 400 MG TAB PO PRN ×2 (05:23→20:25)
[2019-05-24 06:40] LABS: INR 1.55; PROTHROMBIN TIME 19.6 seconds (11.9-14.5)
[2019-05-24 06:41] LABS: PARTIAL THROMBOPLASTIN TIME 51.7 seconds (23.8-35.5)
[2019-05-24] MEDS: LACTOBACILLUS ACIDOPHILUS CAPSULE PO SCH ×2 (09:00→17:00)
[2019-05-24] MEDS: DOXYCYCLINE HYCLATE TABLET 100 MG TAB PO SCH ×2 (09:00→20:26)
[2019-05-24] MEDS: DULOXETINE HCL 30 MG DELAYED RELEASE PO SCH ×2 (09:00→20:25)
[2019-05-24] MEDS: METOPROLOL SUCCINATE 25 MG TAB XL PO SCH ×2 (09:00→17:00)
[2019-05-24] MEDS: FUROSEMIDE INJ 10 MG/ML 4 ML VIAL IV SCH ×2 (09:00→17:00)
[2019-05-24] MEDS: NYSTATIN 15 GM POWDER UD BTL TOP SCH ×2 (09:44→17:00)
--- NOTE | 2019-05-24 10:16 | Progress Note ---
DATE: 05/24/2019 SUBJECTIVE: The patient had some temperature last night to 101.1. She also has some hematuria. She denies abdominal pain or vomiting. She has no diarrhea. PHYSICAL EXAMINATION: VITAL SIGNS: Stable. Her T-max last night was 101.1. CARDIAC: Reveals regular rate and rhythm with normal S1 and S2. PULMONARY: Auscultation of lungs reveal decreased breath sounds at the bases. ABDOMEN: Soft and nontender. There is no rebound or guarding. EXTREMITIES: Show no leg edema or calf tenderness. LABORATORY DATA: White blood cell count is 8.5, the hemoglobin is 9.3, and the platelet count is 160. The BUN to creatinine ratio is 9 to 1.18. Other electrolytes are within normal limits. PT is 19.6. Chest x-ray from three days ago showed an increasing right basilar opacity. IMPRESSION: 1. Recent extended-spectrum beta-lactamase producing Klebsiella urinary tract infection with severe sepsis, present on admission. 2. Acute on chronic respiratory failure. 3. Acute kidney injury. 4. Atrial fibrillation. 5. Acute on chronic systolic congestive heart failure. PLAN: 1. Discuss repeat cultures and antibiotics with Dr. Lambert. 2. Continue anticoagulation. 3. Continue current cardiac regimen. 4. Continue wound care. 5. Out of bed as tolerated. Silvestre Pham MD [facility]/CHAZL /[id number]
--- NOTE | 2019-05-24 11:10 | Diagnostic Imaging Report ---
EXAM: CT Chest WITHOUT intravenous contrast 05/24/2019 9:03 AM INDICATION: Congestive heart failure COMPARISON: Chest radiograph 04/23/2019 TECHNIQUE: Chest was scanned utilizing a multidetector helical scanner from the lung apex through the level of the adrenal glands without administration of IV contrast. Coronal and sagittal reformations were obtained. Routine protocol was performed. IV CONTRAST: None RADIATION DOSE: Total DLP: 912 mGy*cm. Dose modulation, iterative reconstruction, and/or weight based adjustment of the mA/kV was utilized to reduce the radiation dose to as low as reasonably achievable. COMPLICATIONS: None FINDINGS: LINES/ TUBES: None. LUNGS AND AIRWAYS: The central airways are patent. No focal consolidation. Dependent right lower lobe subsegmental atelectasis. Mild smooth interlobular septal thickening. PLEURA: Small right pleural effusion. No left pleural effusion. No pneumothorax. HEART AND MEDIASTINUM: Partially visualized thyroid gland appears unremarkable. No supraclavicular, axillary, mediastinal, or hilar lymphadenopathy. Multichamber cardiomegaly. Scattered atherosclerotic calcifications involve the coronary arteries and thoracic aorta. No pericardial effusion. The main pulmonary artery is enlarged, measuring up to 4.1 cm. UPPER ABDOMEN: No acute findings. 1.6 cm low density adrenal nodule, likely an adenoma. BONES: No acute osseous injury. No suspicious lytic or blastic lesions. SOFT TISSUES: Diffuse subcutaneous soft tissue edema. IMPRESSION: Multichamber cardiomegaly and mild interstitial pulmonary edema. Small right pleural effusion. Dependent right lower lobe subsegmental atelectasis. No focal pneumonia. Main pulmonary artery enlargement to 4.1 cm, which can be seen in the setting of pulmonary artery hypertension. Signed by: Abimbola Garcia MD on 05/24/2019 11:08 AM
[2019-05-24] MEDS ORDERED: SODIUM CHLORIDE 0.9% 50ML 50 ML ONE (13:15)
[2019-05-24] MEDS ORDERED: IOPAMIDOL 370 MG/ML 200 ML INFUS..BTL INJ ONE (13:15)
--- NOTE | 2019-05-24 14:42 | Operative Report ---
DATE OF PROCEDURE: 05/24/2019 SURGEON: Bonita Baker MD PROCEDURE: Wound debridement. INDICATION: A 63-year-old female patient admitted with a left anterior knee ulcer. PROCEDURE IN DETAIL: After explaining the procedure, I used a curette and did a selective debridement to remove the fibrin slough, nonviable tissue, bioburden. There was scant bleeding controlled with the pressure. Wound was cleaned with the normal saline. Apply Hydrogel Mepilex. The patient tolerated the procedure. Bonita Baker MD TG/MODL /[id number]
--- NOTE | 2019-05-24 17:44 | Progress Note ---
DATE: 05/24/2019 CONSULTANTS: 1. Dr. Amin with Cardiology. 2. Dr. Silvestre Pham with can technician. 3. Dr. Son with Wound Care. 4. Dr. Norwood with Psych. CHIEF COMPLAINT: Acute respiratory distress. SUBJECTIVE: The patient is seen, resting in bed, appears to be in increased shortness of breath today. She denies any chest pain, cough, nausea, vomiting, abdominal pain. She was noted to have slight fever overnight. PHYSICAL EXAMINATION: VITAL SIGNS: Temperature is 99.2, pulse is 104, respirations 22, blood pressure 98/72, pulse ox is 96% on 2 L of oxygen. GENERAL: Fatigue, obese. HEENT: Normocephalic, atraumatic. NECK: Supple. CARDIOVASCULAR: Tachycardia, irregular. LUNGS: Decreased breath sounds. ABDOMEN: Soft and nontender, obese. NEUROLOGIC: Alert, awake, and oriented x3. MUSCULOSKELETAL: Moves all extremities. SKIN: With multiple healing scabs and right knee ulcer. PSYCHIATRIC: Anxiety and irritable. : Landaverde. LABORATORY DATA: PT 19.6, INR 1.55, APTT 51.7. Digoxin 1.5. CT chest shows multi chamber cardiomegaly with mild interstitial pulmonary edema and small right pleural effusion. No focal pneumonia, mainly pulmonary artery enlargement 4.1 cm, which can be seen in the setting of pulmonary artery hypertension. IMPRESSION: 1. Acute respiratory failure, requiring intubation, now extubated. Currently on nasal cannula. CT chest today shows pulmonary edema. We will increase Lasix for the increased shortness of breath today. 2. Sepsis present on admission due to urinary tract infection versus pneumonia. Completed Merrem treatment. Urinary tract infection with Klebsiella extended-spectrum beta-lactamases. Completed Merrem per sensitivity. UA is improved. 3. Acute kidney injury, on chronic kidney disease. Creatinine is stable. We will continue to monitor closely. 4. History of paroxysmal atrial fibrillation. She is on Coumadin loading and heparin drip for bridging. Cardiology is on the case. 5. Hypertension. Resume beta blockers. 6. Coped-cy-pujgotw systolic congestive heart failure. We will increase Lasix to 40 b.i.d. 7. Hypothyroidism. Continue levothyroxine. 8. Multiple skin laceration and scabs. Wound Care has been consulted, status post bedside debridement today. 9. History of anxiety and depression, deferred to psych. 10. Low-grade fever. CT chest has been noted, UA looks improved. We will continue on doxycycline. 11. Morbid obesity. With body mass index of 59. 12. Deep vein thrombosis prophylaxis, on Coumadin and heparin bridging. PLAN: To continue Coumadin bridging with heparin. Assisted once therapeutic. Dictated by GISSEL Lin Marietta Lambert MD MY/MODL /[id number]
[2019-05-24] MEDS: IPRATROPIUM BROMIDE 0.02% 2.5 ML NEB NEB SCH ×2 (17:52→22:00)
[2019-05-24] MEDS: WARFARIN SOD 5 MG TAB PO SCH (19:05)
[2019-05-24] MEDS: CLONAZEPAM 1 MG TAB PO PRN (20:40)
[2019-05-24] MEDS: CYCLOBENZAPRINE HCL 10 MG TAB PO PRN (20:41)
--- NOTE | 2019-05-24 21:34 | Consultation ---
DATE OF CONSULTATION: 05/24/2019 Psychiatric Consultation REASON FOR CONSULTATION: To evaluate the patient's mood. HISTORY OF PRESENTING ILLNESS: The patient is a 63-year-old female, admitted to the hospital for congestive heart failure and respiratory failure. Psychiatric consultation is called to evaluate the patient's mood. As per medical record, [facility] due to respiratory failure. She has history of chronic atrial fibrillation, congestive heart failure, obesity. The patient was seen by me at [facility], where she was fixated on medication and having behavior issues occasionally during herself out of bed. Upon evaluation today, the patient is found to be lying on the bed. She is calm. She is alert, awake, and oriented to situation. She reports depressed and anxious due to her health. She reports feeling helpless, but denies being hopeless. She denies passive wish. She denies any suicidal or homicidal ideation. She denies any hallucination. She denies any problem with sleep appetite. PAST PSYCHIATRIC HISTORY: The patient reports history of anxiety and depression. She attempted suicide twice. She denies alcohol or drug use. FAMILY HISTORY: The patient's brothers and sister have history of depression. SOCIAL HISTORY: The patient states she lives in apartment by herself prior to hospitalization. MENTAL STATUS EXAM: The patient is an elderly female. She is obese. Mood is anxious and depressed and irritable. Affect congruent with mood. Psychomotor state is relaxed. She denies any suicidal or homicidal ideation. Denies any hallucination. Thought process is concrete. No delusion elicited. Insight and judgment are fair. Memory appears to be grossly intact. CURRENT MEDICATIONS: 1. Vancomycin. 2. Nystatin. 3. Doxycycline. 4. Cymbalta 60 mg p.o. q.12. 5. Metoprolol. 6. Furosemide. 7. Lactobacillus. 8. Ibuprofen. 9. Levothyroxine. 10. Klonopin 1 mg p.o. b.i.d. as needed. 11. Restoril. 12. Heparin. 13. Zofran. 14. Bismuth. 15. Cholestyramine. 16. Ondansetron. CURRENT LABS: WBC 8.49, RBC 8.14, hemoglobin 9.3, hematocrit 32.4, platelets 160. Sodium 138, potassium 3.8, chloride 95, CO2 33, BUN 9, creatinine 1.18. AST 23, ALT 7. ASSESSMENT: 1. Major depressive disorder, recurrent, moderate. 2. Generalized anxiety disorder. 3. Rule out bipolar. PLAN: 1. Continue with Cymbalta 60 mg p.o. q.12. 2. Continue with Klonopin 1 mg p.o. b.i.d. p.r.n. for now. 3. Add Celexa small dose. 4. Monitor for mood. 5. Supportive therapy. Thank you for this consultation. Dictated by Sowmya Boyd PA-C Javi Norwood MD [facility]/MODL /[id number]
[2019-05-24] MEDS: HEPARIN 25,000 UNIT 1,100 UNIT in DEXTROSE 5% 250ML 250 ML IV SCH (22:49)
[2019-05-25] VITALS (8 sets, daily range): BP systolic 98–120; BP diastolic 55–70
[2019-05-25] MEDS: IBUPROFEN 400 MG TAB PO PRN (00:20)
[2019-05-25] MEDS: VANCOMYCIN 250MG/5ML ORAL SOLN PO SCH ×4 (00:20→18:40)
--- NOTE | 2019-05-25 05:41 | Progress Note ---
DATE: 05/24/2019 Cardiology Progress Note SUBJECTIVE: Denies any chest pain or shortness of breath. OBJECTIVE: VITAL SIGNS: Temperature 99.2, heart rate 104, blood pressure 98/72, respiratory rate 22. O2 saturation 96%. BMI 59.4. GENERAL: In no acute distress, alert. NECK: No JVD. CHEST: Clear to auscultation. CARDIOVASCULAR: Regular rate and rhythm. Normal S1, S2. ABDOMEN: Soft. Bowel sounds positive. EXTREMITIES: Trace edema. Wounds covered with dressings. CARDIOVASCULAR MEDICATIONS: Reviewed; metoprolol succinate 25 mg every 12 hours, warfarin 10 mg daily, heparin IV bridge. STUDIES: Reviewed; creatinine 1.1, hemoglobin 9.3, white blood cells 8.5, platelets 160. PTT 19.6, PTT 51.7. INR 1.55. AST 23, ALT 7, total bilirubin is 1, alkaline phosphatase 84. ASSESSMENT AND PLAN: A 63-year-old woman, presents with anemia, wrdzq-am-uppiftc diastolic heart failure, pneumonia, atrial fibrillation, morbid obesity, left heel wound. RECOMMENDATIONS: Continue current cardiovascular medications, and holding parameters, systolic blood pressure less than 100 to metoprolol. Target INR 2-3. Continue heparin bridge for now. MD BARB Sewell/NARGIS /[id number]
[2019-05-25 06:07] LABS: BASOPHILS % 0.4 % (0.0-1.0); EOSINOPHILS % 0.2 % (0.0-6.0); HEMATOCRIT 30.4 % (34.2-44.1); HEMOGLOBIN 8.6 g/dL (12.0-16.0); LYMPHOCYTES # (AUTO) 0.5 (1.0-3.2); LYMPHOCYTES % 9.4 % (18.0-39.1); MEAN CORPUSCULAR HEMOGLOBIN 21.9 pg (28-32); MEAN CORPUSCULAR HGB CONC 28.3 g/dL (31-35); MEAN CORPUSCULAR VOLUME 77.4 fL (81-99); MONOCYTES # (AUTO) 0.6 (0.2-0.8); MONOCYTES % 10.4 % (4.4-11.3); NEUTROPHILS # (AUTO) 4.5 (2.1-6.9); NEUTROPHILS % 78.9 % (38.7-80.0); PLATELET COUNT 130 x10e3/uL (140-360); RED BLOOD COUNT 3.93 x10e6/uL (3.6-5.1); RED CELL DISTRIBUTION WIDTH 19.8 % (11.7-14.4)
[2019-05-25] MEDS: LEVOTHYROXINE SODIUM 100 MCG TAB PO SCH (06:15)
[2019-05-25 06:20] LABS: INR 1.63; PROTHROMBIN TIME 20.5 seconds (11.9-14.5)
[2019-05-25 06:39] LABS: ANION GAP 13.8 mmol/L (8-16); CREATININE, SERUM 1.51 mg/dL (0.57-1.11); POTASSIUM 3.8 mmol/L (3.5-5.1)
[2019-05-25] MEDS: IPRATROPIUM BROMIDE 0.02% 2.5 ML NEB NEB SCH ×2 (07:20→14:34)
[2019-05-25 09:06] LABS: PLATELET MORPHOLOGY COMMENT FEW EDTA CLUMPING
[2019-05-25 09:07] LABS: PLATELET ESTIMATE SLIGHTLY DECREASED; RBC MORPHOLOGY COMMENT NORMAL
[2019-05-25] MEDS: FUROSEMIDE INJ 10 MG/ML 4 ML VIAL IV SCH ×2 (09:09→17:23)
[2019-05-25] MEDS: DULOXETINE HCL 30 MG DELAYED RELEASE PO SCH ×2 (09:09→21:25)
[2019-05-25] MEDS: FLUOXETINE HCL 10 MG CAP PO SCH (09:09)
[2019-05-25] MEDS: LACTOBACILLUS ACIDOPHILUS CAPSULE PO SCH ×2 (09:09→17:24)
[2019-05-25] MEDS: METOPROLOL SUCCINATE 25 MG TAB XL PO SCH ×2 (09:09→17:25)
[2019-05-25] MEDS: NYSTATIN 15 GM POWDER UD BTL TOP SCH ×2 (09:10→17:24)
[2019-05-25] MEDS: DOXYCYCLINE HYCLATE TABLET 100 MG TAB PO SCH (09:10)
[2019-05-25] MEDS: VANCOMYCIN 1GM/NS 250 ML 250 ML IV SCH (12:30)
--- NOTE | 2019-05-25 13:23 | Progress Note ---
DATE: 05/25/2019 Cardiology Progress Note SUBJECTIVE: Denies any chest pain or shortness of breath. OBJECTIVE: VITAL SIGNS: Temperature of 100.6, heart rate 100-130, respiratory rate 20, O2 saturation 99%. GENERAL: No acute distress, alert. NECK: No JVD. CHEST: Clear to auscultation. CARDIOVASCULAR: Irregularly irregular rate and rhythm. Normal S1, S2. ABDOMEN: Soft. Bowel sounds positive. EXTREMITIES: No edema. Left knee wound covered with dressings. CARDIOVASCULAR MEDICATIONS: Reviewed. Warfarin 10 mg daily, metoprolol succinate 25 mg b.i.d., furosemide 40 mg p.o. b.i.d. STUDIES: Creatinine 1.5, hemoglobin 8.6, platelets are 130. ASSESSMENT AND PLAN: Paroxysmal atrial fibrillation, acute on chronic diastolic heart failure, morbid obesity, leg wounds, and pneumonia. RECOMMEND: 1. I will titrate warfarin to 11 mg daily for target INR 2-3. 2. Continue rest of cardiovascular medications. 3. Can hold diuretics as needed as the patient has approached euvolemic state. Dylan Ventura MD [facility]/MODL /[id number]
--- NOTE | 2019-05-25 13:38 | Progress Note ---
DATE: 05/25/2019 CONSULTANTS: 1. Dr. Amin with Cardiology. 2. Dr. Silvestre Pham with operations vocational instructor. 3. Dr. Son with Wound Care. 4. Dr. Norwood with Psych. CHIEF COMPLAINT: Acute respiratory distress. SUBJECTIVE: The patient is noted to have fever overnight, some shortness of breath. She denies any chest pain, cough, nausea, vomiting, or abdominal pain. OBJECTIVE: VITAL SIGNS: Temperature is 100.6, pulse of 103, respirations 22, blood pressure 113/58, pulse ox is 94% on 2 L of oxygen. GENERAL: Fatigue and fever. HEENT: Normocephalic, atraumatic. NECK: Supple. CARDIOVASCULAR: Tachycardia, irregular. LUNGS: Decreased breath sounds. ABDOMEN: Soft, nontender, and obese. NEUROLOGIC: Alert, awake, and oriented x3. MUSCULOSKELETAL: Moves all extremities. Left great toe amputation. SKIN: With multiple healing scabs and right knee ulcer. PSYCH: Anxiety. : Landaverde. LABORATORY DATA: WBC 5.65, hemoglobin 8.6, hematocrit 30.4, platelets 130. Sodium 132, potassium 3.8, BUN is 18, creatinine 1.51. Estimated GFR is 35. PT is 20.5, INR 1.63. IMPRESSION: 1. Acute respiratory failure, status post intubation. Now extubated on nasal cannula. CT chest shows pulmonary edema. Increase Lasix to b.i.d. 2. Sepsis, present on admission due to urinary tract infection versus pneumonia. Completed Merrem treatment. Treatment for UTI with Klebsiella ESBL. Repeat UA is improved. 3. Persistent fever. CT chest showed pulmonary edema, UA improved. Unknown source of infection. We will start on Zosyn and vancomycin. 4. Acute kidney injury on chronic kidney disease. Creatinine is 1.5. We will continue to monitor closely. 5. History of paroxysmal atrial fibrillation. Continue on metoprolol, and Coumadin with heparin bridging for CVA prophylaxis. Cardiology on the case. 6. Hypertension. Resume beta-blockers. 7. Acute on chronic systolic congestive heart failure. Continue home medications. 8. Hypothyroidism. On levothyroxine. 9. Multiple skin laceration and scabs. Wound Care has been consulted. Status post debridement of left knee. 10. History of anxiety and depression. We will defer to Psych. 11. Morbid obesity. With BMI of 59. 12. Deep vein thrombosis prophylaxis. On Coumadin and heparin bridging. PLAN: To continue Coumadin/heparin bridging. We will send cultures and start on antibiotics. Disposition to [facility]. Dictated by GISSEL Lin Maritzaching MD [facility] Pace/NARGIS /[id number]
[2019-05-25] MEDS: PIPER-TAZ 3.375 GM 50 ML IV SCH ×2 (14:02→21:26)
[2019-05-25] MEDS ORDERED: WARFARIN SOD 1 MG TAB PO SCH (17:00)
[2019-05-25] MEDS ORDERED: WARFARIN SOD 5 MG TAB PO SCH (17:00)
[2019-05-25] MEDS: CLONAZEPAM 1 MG TAB PO PRN (17:13)
[2019-05-25] MEDS: CYCLOBENZAPRINE HCL 10 MG TAB PO PRN (17:13)
--- NOTE | 2019-05-25 18:20 | Progress Note ---
DATE: 05/25/2019 SUBJECTIVE: The patient was started on antibiotics. She still had temperature to 100 last night. She has soft stools, but no actual diarrhea. OBJECTIVE: VITAL SIGNS: The patient is afebrile. The vital signs are stable. HEENT: Shows no facial swelling or erythema. CARDIAC: Reveals regular rate and rhythm with normal S1 and S2. LUNGS: Auscultation of lungs reveals decreased breath sounds at the bases. ABDOMEN: Soft and nontender. There is no rebound or guarding. EXTREMITIES: Show no leg edema or calf tenderness. There is no cyanosis or clubbing. SKIN: Shows no rashes. ASSESSMENT: 1. Recurrent fever of unclear source. 2. Acute kidney injury with increase of creatinine to 1.5. 3. Anemia, unspecified. 4. Paroxysmal atrial fibrillation. 5. Acute on chronic systolic congestive heart failure. PLAN: 1. Continue current antibiotics. 2. Await culture results. 3. Continue current cardiac regimen. 4. Out of bed as tolerated. Silvestre Pham MD [facility]/MODL /[id number]
[2019-05-26] VITALS (8 sets, daily range): BP systolic 96–120; BP diastolic 54–68
[2019-05-26] MEDS: VANCOMYCIN 250MG/5ML ORAL SOLN PO SCH ×3 (00:20→12:22)
[2019-05-26] MEDS ORDERED: DIPHENHYDRAMINE HCL 25 MG CAP PO ONE ×2 (00:45→02:00)
[2019-05-26] MEDS: HEPARIN 25,000 UNIT 1,100 UNIT in DEXTROSE 5% 250ML 250 ML IV SCH (00:57)
[2019-05-26] MEDS: LEVOTHYROXINE SODIUM 100 MCG TAB PO SCH (05:59)
[2019-05-26] MEDS: IPRATROPIUM BROMIDE 0.02% 2.5 ML NEB NEB SCH ×4 (07:00→20:15)
[2019-05-26 07:15] LABS: INR 1.96; PROTHROMBIN TIME 23.7 seconds (11.9-14.5)
[2019-05-26] MEDS: IBUPROFEN 400 MG TAB PO PRN ×3 (08:10→23:49)
[2019-05-26] MEDS: NYSTATIN 15 GM POWDER UD BTL TOP SCH (09:29)
[2019-05-26] MEDS: DULOXETINE HCL 30 MG DELAYED RELEASE PO SCH ×2 (09:29→20:31)
[2019-05-26] MEDS: FUROSEMIDE INJ 10 MG/ML 4 ML VIAL IV SCH (09:29)
[2019-05-26] MEDS: LACTOBACILLUS ACIDOPHILUS CAPSULE PO SCH ×2 (09:29→17:08)
[2019-05-26] MEDS: FLUOXETINE HCL 10 MG CAP PO SCH (09:29)
[2019-05-26] MEDS: METOPROLOL SUCCINATE 25 MG TAB XL PO SCH ×2 (09:30→17:08)
[2019-05-26] MEDS: CYCLOBENZAPRINE HCL 10 MG TAB PO PRN ×2 (10:10→20:58)
[2019-05-26] MEDS: CLONAZEPAM 1 MG TAB PO PRN ×2 (10:10→20:58)
[2019-05-26] MEDS: VANCOMYCIN 1GM/NS 250 ML 250 ML IV SCH (10:46)
[2019-05-26 12:15] LABS: ANION GAP 14.8 mmol/L (8-16); CALCIUM 8.8 mg/dL (8.4-10.2); CREATININE, SERUM 1.42 mg/dL (0.57-1.11); POTASSIUM 3.8 mmol/L (3.5-5.1)
--- NOTE | 2019-05-26 12:47 | Progress Note ---
DATE: 05/26/2019 CONSULTANTS: 1. Dr. Amin with Cardiology. 2. Dr. Silvestre Pham with economics teacher. 3. Dr. Son with Wound Care. 4. Dr. Norwood with Psych. CHIEF COMPLAINT: Acute respiratory distress. SUBJECTIVE: The patient is still with fever overnight, had allergic reaction to Zosyn overnight was held. She denies any chest pain, shortness of breath, cough, nausea, or vomiting. PHYSICAL EXAMINATION: VITAL SIGNS: Temperature 98.8, pulse is 138, respirations 21, blood pressure 120/54, and pulse ox is 95% on room air. GENERAL: Fatigue and obese. HEENT: Normocephalic and atraumatic. NECK: Supple. CARDIOVASCULAR: Tachycardia, irregular. LUNGS: Decreased breath sounds. ABDOMEN: Soft and nontender. NEUROLOGIC: Alert, awake, and oriented x3. MUSCULOSKELETAL: Moves all extremities. Left great toe amputation. SKIN: With multiple healing scabs and right knee. : Landaverde. LABORATORY DATA: PT 23.7 and INR 1.96. Blood culture is positive for gram- negative rods. Urine culture shows gram-negative rods with Enterococcus specimen. IMPRESSION: 1. Acute respiratory failure, on admission, status post intubation and now extubated on nasal cannula. CT chest shows pulmonary edema. Continue Lasix. 2. Sepsis, present on admission due to urinary tract infection versus pneumonia. Status post Merrem for urinary tract infection with Klebsiella extended-spectrum beta-lactamases. 3. Bacteremia. Likely due to urinary tract infection. We will check CT abdomen and pelvis to rule out intra-abdominal infection. Continue on vancomycin IV and change Zosyn to Merrem. 4. Acute kidney injury on chronic kidney disease. We will continue to monitor kidney function. Avoid nephrotoxic drugs. 5. History of paroxysmal atrial fibrillation. Continue metoprolol and Coumadin with heparin bridging for CVA prophylaxis. Cardiology is on the case. 6. Hypertension. On beta blockers. 7. Aihux-gf-nygxyao systolic congestive heart failure. Continue home medications. 8. Hypothyroidism. On levothyroxine. 9. Multiple skin laceration and healing scabs. Wound Care has been consulted, status post bedside debridement of the left knee. 10. History of anxiety and depression. We will defer to Psych. 11. Morbid obesity with BMI of 59. 12. Deep vein thrombosis prophylaxis. On Coumadin and heparin bridging. PLAN: To continue antibiotics and anticoagulation bridging. Awaiting on final culture results. We will do CT abdomen and pelvis to rule out other infections. Dictated by GISSEL Lin Marietta Lambert MD [facility]/MODL /[id number] Seen and examined, will stop iv vancomycin and start meropenem. Agree with the findings and plan as documented by GISSEL Zuñiga. HOLLISD
[2019-05-26] MEDS: MEROPENEM 1GM 100 ML IV SCH ×2 (14:40→21:24)
--- NOTE | 2019-05-26 15:08 | Progress Note ---
DATE: 05/26/2019 SUBJECTIVE: The patient has less fever. She still has weakness. She is not complaining of difficulty breathing. She denies chest pain. PHYSICAL EXAMINATION: VITAL SIGNS: The blood pressure is 120/54 and the saturation 95%. Pulse is 130. HEENT: Shows no facial swelling or erythema. CARDIAC: Irregularly regular rhythm with normal S1 and S2. LUNGS: Auscultation of lungs reveals decreased breath sounds at bases. There is no wheezing. ABDOMEN: Soft, nontender. There is no rebound or guarding. EXTREMITIES: Show no leg edema or calf tenderness. There is no cyanosis or clubbing. SKIN: Shows no rashes. LABORATORY DATA: White blood cell count is 5.6 and hemoglobin is 8.6. The platelet count is 130. BUN to creatinine ratio is 23 to 1.42. The other electrolytes are within normal limits. MICROBIOLOGICAL DATA: Blood culture of gram-negative rods and urine shows 10,000 to 50,000 gram-negative rods and 10,000 to 50,000 Enterococcus. IMPRESSION: 1. Klebsiella urinary tract infection with secondary sepsis. 2. Acute on chronic kidney injury. 3. Atrial fibrillation with rapid ventricular response. 4. Acute on chronic systolic heart failure. 5. Wound on the right knee. PLAN: 1. Continue current antibiotics. 2. Continue to monitor creatinine and blood counts. 3. Await culture results. 4. Continue oxygen. 5. Physical therapy and out of bed as tolerated. MD JENNIFFER Daly/NARGIS /[id number]
[2019-05-26] MEDS ORDERED: WARFARIN SOD 5 MG TAB PO SCH (17:00)
[2019-05-26] MEDS ORDERED: AMIODARONE HCL 200 MG TAB PO SCH (17:00)
--- NOTE | 2019-05-26 18:03 | Progress Note ---
DATE: 05/26/2019 Cardiology Progress Note. SUBJECTIVE: Denies any chest pain. Has had some shortness of breath, atrial fibrillation with RVR noted several episodes. OBJECTIVE: VITAL SIGNS: Current temperature 98.8, heart rate 138, blood pressure 120/54, respiratory rate 21, O2 saturation 95%. BMI 59. GENERAL: In no acute distress, alert. NECK: No JVD. CHEST: Clear to auscultation. CARDIOVASCULAR: Irregularly irregular rate and rhythm. Normal S1, S2. No S3 or S4. ABDOMEN: Soft. Bowel sounds positive. EXTREMITIES: Trace edema. CARDIOVASCULAR MEDICATIONS: Reviewed. Warfarin 11 mg daily, metoprolol succinate 25 mg b.i.d., furosemide 40 mg b.i.d. LABORATORY DATA: Studies reviewed. Creatinine 1.4, potassium 3.8, hemoglobin 8.6, platelets 130. INR 1.96. ASSESSMENT AND PLAN: 1. A 63-year-old woman with pneumonia, atrial fibrillation with RVR, acute on chronic diastolic heart failure, anemia, morbid obesity, wounds to lower extremities. RECOMMEND: 1. Decrease warfarin to 10 mg daily. 2. Add amiodarone 400 mg p.o. b.i.d. 3. Continue metoprolol. 4. Decrease furosemide to 20 mg p.o. daily. 5. Increase fluid intake today. MD BARB Sewell/NARGIS /[id number]
--- NOTE | 2019-05-26 20:14 | Diagnostic Imaging Report ---
EXAM: CT Abdomen and Pelvis WITHOUT contrast INDICATION: Abdominal pain COMPARISON: Chest CT 05/24/2019 TECHNIQUE: Abdomen and pelvis were scanned utilizing a multidetector helical scanner from the lung base to the pubic symphysis without administration of IV contrast. Absence of intravenous contrast decreases sensitivity for detection of focal lesions and vascular pathology. Coronal and sagittal reformations were obtained. Routine protocol was performed. IV CONTRAST: None ORAL CONTRAST: None COMPLICATIONS: None RADIATION DOSE: Total DLP: 1487 mGy*cm Estimated effective dose: (DLP x 0.015 x size factor) mSv CTDIvol has been reviewed. It is below the limits set by the Radiation Protocol Committee (RPC). Dose modulation, iterative reconstruction, and/or weight based adjustment of the mA/kV was utilized to reduce the radiation dose to as low as reasonably achievable. FINDINGS: LINES and TUBES: None. LOWER THORAX: Small right pleural effusion with right dependent consolidations, air bronchograms. Subtle groundglass in the lingula. Elevated right hemidiaphragm. Coronary artery calcific atherosclerosis. Calcific aortic valve disease. Moderate cardiomegaly. Low blood density within the left ventricular cavity. HEPATOBILIARY: Mildly enlarged. No focal hepatic lesions. No biliary ductal dilation. GALLBLADDER: Circumferential gallbladder wall thickening and trace pericholecystic fluid/fat stranding. No radio-opaque stones or sludge. SPLEEN: Mild splenomegaly. PANCREAS: No focal masses or ductal dilatation. ADRENALS: A 2.5 cm soft tissue dense right adrenal nodule. KIDNEYS/URETERS: No hydronephrosis. No cystic or solid mass lesions. No stones. Bilateral perinephric fat stranding. GI TRACT: No abnormal distention, wall thickening, or evidence of bowel obstruction. Appendix is not clearly identified although acute appendiceal pathology is unlikely. PELVIC ORGANS/BLADDER : Tracer in the nondependent bladder lumen, likely due to instrumentation.: LYMPH NODES: No lymphadenopathy. VESSELS: Unremarkable. PERITONEUM / RETROPERITONEUM: Small volume ascites. No free air. BONES: There are degenerative changes in the spine. SOFT TISSUES: Anasarca. IMPRESSION: 1. Coronary artery calcific atherosclerosis. Calcific aortic valve disease. Moderate cardiomegaly. Small right pleural effusion and right basilar dependent consolidation, likely atelectasis although pneumonia is possible. 2. CT findings of anemia. 3. Mild hepatosplenomegaly. 4. Findings volume overload including anasarca, small volume ascites, left pleural effusion. 5. Trace air in the bladder lumen can be due to recent instrumentation. Correlate with urinalysis. 6. Gallbladder edema likely due to fluid third spacing, however if there is high clinical suspicion for cholecystitis consider a nuclear medicine hepatobiliary scan for further evaluation. 7. A 2.5 cm indeterminate soft tissue dense right adrenal nodule. Recommend nonemergent abdominal CT with and without contrast adrenal mass protocol for further evaluation. Signed by: lSade Lynn DO on 05/26/2019 8:12 PM
[2019-05-26] MEDS ORDERED: SODIUM CHLORIDE 0.9% 1000ML 500 ML IV STA (21:52)
[2019-05-26] MEDS ORDERED: AMIODARONE HCL 900 MG in DEXTROSE 5% 500ML 500 ML IV SCH (22:30)
[2019-05-27] VITALS (7 sets, daily range): BP systolic 98–119; BP diastolic 65–96
[2019-05-27] MEDS: IPRATROPIUM BROMIDE 0.02% 2.5 ML NEB NEB SCH ×3 (00:15→13:41)
[2019-05-27] MEDS ORDERED: AMIODARONE HCL 100 ML IV ONE (00:23)
[2019-05-27] MEDS ORDERED: AMIODARONE HCL 900 MG in DEXTROSE 5% 500ML 500 ML IV ONE (00:30)
[2019-05-27] MEDS ORDERED: AMIODARONE HCL 150 MG/100 ML BAG IV ONE (00:30)
[2019-05-27] MEDS ORDERED: AMIODARONE HCL 360MG 200 ML IV SCH (00:45)
[2019-05-27] MEDS: MEROPENEM 1GM 100 ML IV SCH ×3 (06:00→23:34)
[2019-05-27] MEDS: LEVOTHYROXINE SODIUM 100 MCG TAB PO SCH (06:08)
[2019-05-27 06:10] LABS: INR 2.13; PROTHROMBIN TIME 25.4 seconds (11.9-14.5)
[2019-05-27] MEDS: DULOXETINE HCL 30 MG DELAYED RELEASE PO SCH ×2 (08:18→19:50)
[2019-05-27] MEDS: FLUOXETINE HCL 10 MG CAP PO SCH (08:18)
[2019-05-27] MEDS: LACTOBACILLUS ACIDOPHILUS CAPSULE PO SCH ×2 (08:18→16:55)
[2019-05-27] MEDS: BALSAM PERU/CASTOR OIL 60 GM OINT...G. TP SCH (08:18)
[2019-05-27] MEDS: METOPROLOL SUCCINATE 25 MG TAB XL PO SCH ×2 (08:19→16:55)
[2019-05-27] MEDS ORDERED: FUROSEMIDE INJ 10 MG/ML 4 ML VIAL IV SCH (09:00)
[2019-05-27] MEDS ORDERED: VANCOMYCIN 250MG/5ML ORAL SOLN PO SCH (09:00)
--- NOTE | 2019-05-27 09:56 | Diagnostic Imaging Report ---
EXAMINATION: CHEST XRAY LINE PLACEMENT INDICATION: PICC placement. COMPARISON: CT chest 05/24/2019 and chest radiograph 05/22/2019. FINDINGS: The left lung base is partially excluded from the emuai-qe-ghii. TUBES and LINES: Interval placement of right-sided PICC which terminates overlying the proximal right subclavian vein. LUNGS: Low lung volumes with central vascular congestion and mild interstitial opacities. PLEURA: No large pleural effusion. No evidence of pneumothorax. HEART AND MEDIASTINUM: The cardiomediastinal silhouette is mildly enlarged. BONES AND SOFT TISSUES: No acute osseous lesion. Soft tissues are unremarkable. UPPER ABDOMEN: No free air under the diaphragm. IMPRESSION: Right-sided PICC terminates in a midline position in the proximal right subclavian vein. Suggest clinical correlation and repositioning if indicated. Mild cardiomegaly and pulmonary interstitial edema. Signed by: Dr. Marcus Winston MD on 05/27/2019 9:54 AM
[2019-05-27 11:27] LABS: BASOPHILS % 0.4 % (0.0-1.0); EOSINOPHILS # (AUTO) 0.3 (0.0-0.4); HEMATOCRIT 31.3 % (34.2-44.1); HEMOGLOBIN 9.5 g/dL (12.0-16.0); LYMPHOCYTES # (AUTO) 0.6 (1.0-3.2); LYMPHOCYTES % 6.7 % (18.0-39.1); MEAN CORPUSCULAR HEMOGLOBIN 23.6 pg (28-32); MEAN CORPUSCULAR HGB CONC 30.4 g/dL (31-35); MEAN CORPUSCULAR VOLUME 77.9 fL (81-99); MONOCYTES # (AUTO) 0.8 (0.2-0.8); MONOCYTES % 8.9 % (4.4-11.3); NEUTROPHILS # (AUTO) 6.8 (2.1-6.9); NEUTROPHILS % 80.3 % (38.7-80.0); PLATELET COUNT 153 x10e3/uL (140-360); RED BLOOD COUNT 4.02 x10e6/uL (3.6-5.1); RED CELL DISTRIBUTION WIDTH 20.1 % (11.7-14.4)
--- NOTE | 2019-05-27 11:34 | Diagnostic Imaging Report ---
EXAMINATION: CHEST XRAY LINE PLACEMENT INDICATION: PICC placement. COMPARISON: CT chest 05/24/2019 and chest radiograph 05/27/2019 at 9:24 AM. FINDINGS: The left lung base is partially excluded from the xjgqe-sv-eoro. TUBES and LINES: Interval advancement of right PICC which now terminates in the mid SVC. LUNGS: Low lung volumes with central vascular congestion and mild interstitial opacities. PLEURA: No large pleural effusion. No evidence of pneumothorax. HEART AND MEDIASTINUM: The cardiomediastinal silhouette is mildly enlarged. BONES AND SOFT TISSUES: No acute osseous lesion. Soft tissues are unremarkable. UPPER ABDOMEN: No free air under the diaphragm. IMPRESSION: Right-sided PICC has been advanced and terminates in the SVC. No evidence of pneumothorax. Mild cardiomegaly and pulmonary interstitial edema. Signed by: Dr. Marcus Winston MD on 05/27/2019 11:32 AM
[2019-05-27 11:40] LABS: ANION GAP 15.5 mmol/L (8-16); CALCIUM 9.2 mg/dL (8.4-10.2); CREATININE, SERUM 1.91 mg/dL (0.57-1.11); POTASSIUM 3.5 mmol/L (3.5-5.1)
[2019-05-27] MEDS ORDERED: AMIKACIN SULFATE 250 MG/ML 2ML VIAL IV ONE (11:45)
[2019-05-27] MEDS ORDERED: SODIUM CHLORIDE 0.9% IV ONE (12:15)
[2019-05-27] MEDS ORDERED: AMIKACIN SULFATE IV ONE (12:15)
[2019-05-27 12:29] LABS: ALBUMIN 3.1 g/dL (3.5-5.0); BILIRUBIN,DIRECT 0.9 mg/dL (0.0-0.5); CHOL/HDL RATIO 3.8 (3.0-3.6)
--- NOTE | 2019-05-27 13:11 | Consultation ---
DATE OF CONSULTATION: 05/27/2019 HISTORY OF PRESENT ILLNESS: This is a 63-year-old white lady, who initially was at [facility], undergoing wound care on her right heel as well as left knee, longstanding history of diabetes, multiple comorbidities, admitted with complicated UTI. She improved, but then has become septic again. She had chills last night. Temperature went up. Now urine culture despite IV meropenem is again showing repeat growth of gram-negative rods. It grew Klebsiella, Enterococcus, and yeast species. Prior to that was ESBL. It turns out that the Klebsiella pneumonia at this time is only sensitive to amikacin. Infectious Disease has also been consulted. Cardiology has been following. She has been intermittently be diuresed and we are seeing worsening of kidney function, which is why Renal was consulted. Admit serum creatinine was 1.72, came down nicely to 1.12 and then has progressively gone up since May 21. Today it is 1.19. Her sodium is 133, potassium 3.5, and bicarbonate 30. Calcium 9.2. Albumin 3.2. CBC shows white count 8.4, hemoglobin 9.5, and platelet 153. Urinalysis done on the , specific gravity 1.005, 21 to 50 rbc, more than 50 wbc. Stool occult blood was negative. C, difficile toxin was negative. Digoxin level was 1.9. Apparently, this was done earlier. Labs, blood gas done was on of no use at this point in time nevertheless. The patient is currently awake and alert. She gets short of breath real fast upon talking. She is tachypneic, has a reddish colored rash that appears on the front of her chest. She has a dressing noted on left knee as well as dressing around the ankle. She has missing toes, chronic skin changes over the skin and sole of feet bilaterally. ALLERGIES: TO PENICILLIN, STATINS, SULFA, TYLENOL, CODEINE, FENTANYL, MEPERIDINE, MORPHINE, AND TRAMADOL. CURRENT MEDICATIONS: The patient is on amiodarone IV. She is on meropenem 1 g IV q.8. Vancomycin was subsequently discontinued as of today. She is on cholestyramine, Questran, Klonopin 1 mg p.o. b.i.d. p.r.n. anxiety. She is on Flexeril 10 mg p.o. q.8 p.r.n. muscle spasms. She is on duloxetine and Cymbalta 60 mg q.12. She is on Prozac 10 mg daily. She is on ipratropium, levothyroxine 150 mcg daily, metoprolol 25 mg p.o. b.i.d., ondansetron p.r.n., and she is on also on vancomycin 125 mg p.o. daily. PHYSICAL EXAMINATION: The patient awake, alert, wkry-pn-ctqxpgik respiratory distress. VITAL SIGNS: Blood pressure of 119/96, pulse rate 137, respiratory rate 24, afebrile, and oxygen saturation 96% nasal cannula. HEAD AND NECK: Cornea clear. Oral mucosa dry. Neck veins flat. LUNGS: Relatively clear. No rales. HEART: S1 and S2 audible. ABDOMEN: Obese, soft, and nontender. EXTREMITIES: Lower extremity, chronic changes. No edema. DIAGNOSTIC DATA: Last echocardiogram shows ejection fraction of 40% to 45% with biatrial enlargement, moderate MR, moderate TR. IMPRESSION AND PLAN: Worsening kidney function in a lady with clearly septic now, tachypneic, short of breath. On clinical exam, no evidence of congestive heart failure. We will plan on obtaining stat blood gas, stat chest x-ray, urinalysis, BNP level. Infectious Disease consulted. We maybe start using aminoglycosides given her degree of infection. I will defer meropenem dose adjustment to ID at this point in time. I will obtain a vancomycin trough level. I will also administer IV albumin. Monitor the patient's kidney ultrasound, has underlying acute kidney injury, likely acute tubular necrosis secondary to sepsis. Please see orders. MD JEREMY Radford/MODAntoni /[id number]
[2019-05-27] MEDS ORDERED: ALBUMIN 5% 0.05 GM/ML BTL IV ONE (13:45)
[2019-05-27] MEDS ORDERED: ALBUMIN 5% 250ML 500 ML IV ONE (14:00)
--- NOTE | 2019-05-27 16:27 | Diagnostic Imaging Report ---
EXAM: Right upper quadrant abdominal ultrasound INDICATION: Abdominal pain, query cholecystitis. COMPARISON: CT Abdomen/Pelvis 05/26/2019. TECHNIQUE: Transverse and longitudinal images of the right upper quadrant abdomen were obtained FINDINGS: Liver: Size: 21.5 cm in the right midclavicular line, normal Appearance: Slightly increased echogenicity, smooth contour Mass: No focal masses Gallbladder: No distention, pericholecystic fluid, stone, or reported sonographic Funes's sign. Gallbladder wall measures 0.7 cm. Bile Ducts: Intrahepatic Ducts: No dilatation Extrahepatic Ducts: Common bile duct measures 0.5 cm, no dilatation Pancreas: Partially visualized portions appear unremarkable. Kidney: The right kidney measures 13.5 cm without evidence of hydronephrosis or stone. Vessels: Aorta: Not visualized. Inferior Vena Cava: Visualized portions are normal Main Portal Vein: 0.9 cm, normal size with hepatopetal flow. Free Fluid: Trace ascites. Small pleural effusion. IMPRESSION: Diffusely thick-walled gallbladder without sonographic findings of acute cholecystitis. This could be seen in the setting of hepatic dysfunction or may represent volume status. If clinical concern for acute cholecystitis, HIDA scan may be considered for further evaluation. Trace ascites and small pleural effusion. Signed by: Dr. Marcus Winston MD on 05/27/2019 4:24 PM
--- NOTE | 2019-05-27 19:47 | Progress Note ---
DATE: 05/27/2019 Cardiology Progress Note SUBJECTIVE: Denies any chest pain. Has shortness of breath in the setting of episodes of atrial fibrillation with rapid ventricular response and high-degree fever. OBJECTIVE: VITAL SIGNS: Temperature currently 98.4, heart rate currently 130, blood pressure 119/96, respiratory rate 25, and O2 saturation 96% on nasal cannula. GENERAL: In no acute distress. Alert. NECK: No JVD. CHEST: Clear to auscultation. CARDIOVASCULAR: Irregularly irregular rate and rhythm. Tachycardic. Normal S1 and S2. No S3 or S4. Systolic ejection murmur. ABDOMEN: Soft. Bowel sounds positive. EXTREMITIES: Trace edema. CARDIOVASCULAR MEDICATIONS: Reviewed. Warfarin 10 mg daily, metoprolol succinate 25 mg b.i.d., amiodarone IV, receiving albumin and vancomycin. STUDIES: Reviewed. Creatinine trending up 1.9 today, potassium 3.5, and bicarbonate 30. White blood cells 8.4, hemoglobin 9.5, and platelets 153. INR 2.13. ASSESSMENT AND PLAN: 1. A 63-year-old woman with sepsis, recent pneumonia, now with recurrent several episodes. 2. Atrial fibrillation with rapid ventricular response. 3. Ybtju-vm-hgbftlk diastolic heart failure. 4. Acute renal failure. 5. Anemia. RECOMMEND: 1. Continue antibiotic therapy per ID expertise. 2. Appreciate renal input. 3. Hold warfarin for now in anticipation of any potential additional procedures. This patient is deteriorating and will be transferred to ICU today. 4. Continue amiodarone and metoprolol. Dylan Ventura MD [facility]/MODL /[id number]
[2019-05-27] MEDS: CLONAZEPAM 1 MG TAB PO PRN (19:53)
[2019-05-27] MEDS ORDERED: BUMETANIDE INJ 0.25MG/ML 4ML VIAL IV ONE (20:00)
--- NOTE | 2019-05-27 20:37 | Consultation ---
DATE OF CONSULTATION: 05/27/2019 CHIEF COMPLAINT: Abdominal pain and vomiting. HISTORY OF PRESENT ILLNESS: The patient is a 63-year-old female, [facility] resident, admitted for sepsis secondary to pneumonia, requiring intubation. She also has a urinary tract infection which was treated with antibiotics with improvement and extubation. The patient has been complaining of some abdominal pain in the upper abdomen with intermittent vomiting. She denies fever or diarrhea. PAST MEDICAL HISTORY: Significant for rapid rate atrial fibrillation, heart failure, hypertension, chronic renal insufficiency, hypothyroidism, multiple skin wounds from decubitus ulcers, anxiety, depression, and morbid obesity. PAST SURGICAL HISTORY: Positive for hysterectomy and bilateral knee surgery. ALLERGIES: SHE IS ALLERGIC PENICILLIN, SULFA, CODEINE, AND DEMEROL. REVIEW OF SYSTEMS: She has mild shortness of breath. No chest pain. PHYSICAL EXAMINATION: VITAL SIGNS: The patient's vital signs stable. She is afebrile. She is awake, alert, in mild discomfort. HEENT: Sclerae is anicteric. NECK: Supple. LUNGS: Clear. HEART: Irregular rate and rhythm. No murmurs. ABDOMEN: Soft. No focal tenderness or guarding. EXTREMITIES: No cyanosis or edema. LABORATORY DATA: White cell count is 8, hemoglobin of 9, and platelet count of 153. Creatinine 1.9, albumin of 3.1. Liver function tests mildly elevated, bilirubin 1.3, alkaline phosphatase 88. INR of 2.1 with PT of 25. CT of the abdomen show some gallbladder wall thickening and trace pericholecystic fluid. No stone visualized. ASSESSMENT: Abdominal pain and vomiting in patient with CT scan suggestive of cholecystitis. PLAN: Ultrasound has been ordered. If nondiagnostic, plan to get a HIDA scan to rule out cystic duct obstruction. Thank you for consultation. MD SEBASTIEN Scott/NARGIS /[id number]
[2019-05-27 22:11] LABS: BILIRUBIN,URINE SMALL (NEGATIVE); CLARITY,URINE CLOUDY (CLEAR); COLOR,URINE BROWN (YELLOW); KETONES,URINE NEGATIVE (NEGATIVE); LEUKOCYTE ESTERASE ,URINE SMALL (NEGATIVE); NITRITE,URINE NEGATIVE (NEGATIVE); PROTEIN,URINE DIPSTICK 3+ (NEGATIVE); URINE UROBILINOGEN 0.2 mg/dL (0.2 - 1)
[2019-05-27 22:40] LABS: BACTERIA,URINE MANY /HPF; EPITHELIAL CELLS,URINE MANY /LPF; RBC,URINE >50 /HPF (0-5); WBC,URINE (MAN) >50 /HPF (0-5)
[2019-05-28 00:09] VITALS: BP 111/69
--- NOTE | 2019-05-28 00:38 | Progress Note ---
DATE: 05/27/2019 SUBJECTIVE: The patient has more confusion today. She was transferred to the [facility]. She was also seen in consultation by General surgery, who raised concern about persistence of vomiting, abdominal pain with cholecystitis. An ultrasound and HIDA scan were recommended. The patient was also seen by Nephrology today. They noticed worsening kidney function, which they felt was secondary to sepsis. The patient was continued on the current antibiotics. PHYSICAL EXAMINATION: VITAL SIGNS: The patient is afebrile. The blood pressure is 108/86 and the saturation was 92% on 2 L. The pulse is 105. Respiratory rate 21. HEENT: Shows no facial swelling or erythema. CARDIAC: Reveals regular rate and rhythm with a normal S1 and S2. LUNGS: Auscultation of lungs reveals coarse breath sounds bilaterally. There is no wheezing. ABDOMEN: Soft. There is no rebound. EXTREMITIES: Show no leg edema. The patient is more confused, but has no focal neurological abnormalities. LABORATORY DATA: White blood cell count is 8.4 and hemoglobin is 9.5. The platelet count is 135. The BUN to creatinine ratio is increased to 27/1.91. The BNP is 1566. IMPRESSION: 1. Klebsiella urinary tract infection with secondary sepsis. 2. Ylhkg-ln-eoxglwb kidney injury. 3. Wgrsa-nq-rkkuxsx systolic heart failure. 4. Metabolic encephalopathy. 5. Wound on the right knee. 6. Hyponatremia. PLAN: 1. The patient will receive albumin. A kidney ultrasound is also scheduled. 2. The patient will complete her evaluation for the gallbladder with an ultrasound and probably a HIDA scan. 3. Continue current IV antibiotics. 4. ABG. 5. Continue to monitor. 6. Case discussed with nursing, patient, and Dr. Lambert. Silvestre Pham MD [facility]/CHAZL /[id number]
[2019-05-28] MEDS ORDERED: AMIODARONE 900MG 500 ML IV ONE (02:58)
[2019-05-28 04:44] VITALS: BP 115/95
[2019-05-28] MEDS: LEVOTHYROXINE SODIUM 100 MCG TAB PO SCH (05:51)
[2019-05-28] MEDS: CYCLOBENZAPRINE HCL 10 MG TAB PO PRN (05:56)
[2019-05-28 06:20] LABS: BASOPHILS % 0.3 % (0.0-1.0); EOSINOPHILS # (AUTO) 0.3 (0.0-0.4); EOSINOPHILS % 4.5 % (0.0-6.0); HEMATOCRIT 28.3 % (34.2-44.1); HEMOGLOBIN 8.4 g/dL (12.0-16.0); LYMPHOCYTES # (AUTO) 0.7 (1.0-3.2); LYMPHOCYTES % 12.4 % (18.0-39.1); MEAN CORPUSCULAR HEMOGLOBIN 22.8 pg (28-32); MEAN CORPUSCULAR HGB CONC 29.7 g/dL (31-35); MEAN CORPUSCULAR VOLUME 76.7 fL (81-99); MONOCYTES % 16.9 % (4.4-11.3); NEUTROPHILS # (AUTO) 3.9 (2.1-6.9); NEUTROPHILS % 65.2 % (38.7-80.0); PLATELET COUNT 144 x10e3/uL (140-360); RED BLOOD COUNT 3.69 x10e6/uL (3.6-5.1); RED CELL DISTRIBUTION WIDTH 19.6 % (11.7-14.4)
[2019-05-28 06:36] LABS: INR 2.33; PROTHROMBIN TIME 27.3 seconds (11.9-14.5)
[2019-05-28 06:50] LABS: ANION GAP 14.2 mmol/L (8-16); CALCIUM 8.9 mg/dL (8.4-10.2); CREATININE, SERUM 2.15 mg/dL (0.57-1.11); POTASSIUM 3.2 mmol/L (3.5-5.1)
[2019-05-28] MEDS: IPRATROPIUM BROMIDE 0.02% 2.5 ML NEB NEB SCH ×2 (07:10→19:20)
[2019-05-28 07:25] LABS: BILIRUBIN,DIRECT 0.8 mg/dL (0.0-0.5)
[2019-05-28 08:00] VITALS: BP 122/100
[2019-05-28 09:00] VITALS: BP 122/100
[2019-05-28 09:09] LABS: HYPOCHROMASIA MODERATE; RBC MORPHOLOGY COMMENT ABNORMAL
[2019-05-28] MEDS: LACTOBACILLUS ACIDOPHILUS CAPSULE PO SCH ×2 (09:18→17:00)
[2019-05-28] MEDS: DULOXETINE HCL 30 MG DELAYED RELEASE PO SCH (09:18)
[2019-05-28] MEDS: FLUOXETINE HCL 10 MG CAP PO SCH (09:19)
[2019-05-28] MEDS: CLONAZEPAM 1 MG TAB PO PRN (09:19)
[2019-05-28] MEDS: METOPROLOL SUCCINATE 25 MG TAB XL PO SCH ×2 (09:23→17:00)
--- NOTE | 2019-05-28 09:47 | Diagnostic Imaging Report ---
EXAMINATION: CHEST SINGLE (PORTABLE) INDICATION: Chest pain COMPARISON: Chest radiograph 05/27/2019 FINDINGS: LINES/TUBES:Right PICC line terminates in the SVC. EKG leads overlie the chest. LUNGS:The lungs are moderately inflated. There is perihilar fullness and indistinctness of the pulmonary vasculature. PLEURA:No pleural effusion or pneumothorax. MEDIASTINUM:Cardiomediastinal silhouette is stably enlarged. Atherosclerotic calcifications of the thoracic aorta. BONES/SOFT TISSUES:No acute osseous injury. ABDOMEN:No free air under the diaphragm. IMPRESSION: Cardiomegaly and mild pulmonary edema. Signed by: Abimbola Garcia MD on 05/28/2019 9:44 AM
[2019-05-28] MEDS: BALSAM PERU/CASTOR OIL 60 GM OINT...G. TP SCH (10:35)
[2019-05-28] MEDS ORDERED: SODIUM CHLORIDE 0.9% 250ML 250 ML ONE (10:59)
[2019-05-28] MEDS: FLUCONAZOLE 200 MG/100 ML 100 ML IV SCH (11:13)
--- NOTE | 2019-05-28 11:26 | Progress Note ---
DATE: 05/28/2019 SUBJECTIVE: THE patient has less confusion this morning, but her creatinine is increased. Her blood cultures are growing out a multidrug resistant Klebsiella, which has the same sensitivity profile as the Klebsiella in the urine. She also complains of some pain on the left side of her chest with deep inspiration. She has slightly increased dyspnea. She has no fevers. PHYSICAL EXAMINATION: VITAL SIGNS: The blood pressure is 115/95 and saturation is 100% on 4 L. HEENT: No facial swelling or erythema. Oropharynx is normal. LYMPHATIC: No submandibular, cervical, or supraclavicular adenopathy. CARDIAC: Regular rate and rhythm with normal S1, S2. LUNGS: Auscultation of lungs reveals crackles at both bases. There is no wheezing. ABDOMEN: Soft, nontender. There is no rebound or guarding. EXTREMITIES: No leg edema or calf tenderness. LABORATORY DATA: Creatinine is increased to 2.15. White blood cell count is 5.9, and the platelet count is 144. Hemoglobin is 8.4. IMPRESSION: 1. Multidrug resistant Klebsiella urinary tract infection with associated bacteremia. 2. Acute on chronic kidney injury. 3. Cholecystitis or cholelithiasis. 4. Acute on chronic congestive heart failure. 5. Atrial fibrillation. 6. Wound on the right knee. PLAN: 1. Discussed current antibiotic regimen with ID. The patient will probably require amikacin and/or tobramycin, because these are the only drugs which the organism is sensitive to. 2. Repeat chest x-ray and EKG. 3. Continue to evaluate the cholelithiasis with General Surgery. 4. Wound care. 5. Continue anticoagulation. 6. Continue current cardiac regimen. Silvestre Phma MD [facility] /[id number]
--- NOTE | 2019-05-28 11:30 | Progress Note ---
DATE: 05/28/2019 Cardiology Progress Note SUBJECTIVE: Denies any chest pain or shortness of breath. OBJECTIVE: VITAL SIGNS: Temperature 99.1, heart rate 113, blood pressure 115/95, and O2 saturation 100%. BMI 59. GENERAL: In no acute distress. Alert. NECK: No JVD. CHEST: Clear to auscultation. CARDIOVASCULAR: Irregular rate and rhythm. Normal S1 and S2. Heart rate on telemetry in the 110s to 120s. ABDOMEN: Soft. Bowel sounds positive. EXTREMITIES: No edema. Wounds with dressings in place. CARDIOVASCULAR MEDICATIONS: Have been reviewed, on: 1. Metoprolol succinate 25 mg b.i.d. 2. Amiodarone IV drip, transitioned to 400 mg p.o. b.i.d. was completed. 3. Warfarin 10 mg daily, currently on hold. STUDIES: Reviewed. Creatinine is 2.1. Hemoglobin 8.4 and platelets 144. INR 2.33. AST 23, ALT 9, and alkaline phosphatase 80. ASSESSMENT AND PLAN: 1. A 63-year-old woman, presents with acute on chronic diastolic heart failure, paroxysmal atrial fibrillation, leg wounds, pneumonia, now with multidrug resistant bacteremia. Recommend Infectious Disease consultation underway. Appreciate Infectious Disease input regarding antibiotic management. 2. If no additional procedures are planned by other treating physicians, can resume warfarin 10 mg daily. Discussed with nursing staff this recommendation. 3. Continue rest of cardiovascular medications. MD BARB Sewell/NARGIS /[id number]
[2019-05-28] MEDS: LINEZOLID 600 MG/D5W 300ML 300 ML IV SCH (12:47)
[2019-05-28] MEDS: MEROPENEM 1GM 100 ML IV SCH (15:12)
[2019-05-28] MEDS ORDERED: POTASSIUM CHLORIDE 20MEQ/100ML 200 ML IV ONE ×2 (15:15→20:00)
[2019-05-28] MEDS ORDERED: DULOXETINE HCL 30 MG DELAYED RELEASE PO SCH (17:00)
--- NOTE | 2019-05-28 17:32 | Progress Note ---
DATE: 05/28/2019 Psychiatric Progress Note SUBJECTIVE: The patient evaluated and events noted. The patient is in the room with a friend. She is alert, awake, and oriented to situation. She reports feeling depressed and somewhat anxious due to her health, but not due to the home. She denies any suicidal or homicidal ideation. She denies any hallucination. She reports sleeping fair and eating fair. Upon discussing medications, she is on Prozac and does not love the Prozac, although she admits to earlier that she was depressed and having anxiety. She is more fixated on getting her Klonopin schedule. The patient is on oxygen and does have some respiratory issues and she is currently on Klonopin p.r.n. It appears that the patient's Cymbalta has been discontinued by treatment team. The patient denies any side effects to medication. The patient is well known to me. She is very particular to her medications. She has been on Cymbalta for many years and most likely would not want medication to be adjusted. She believes that she is currently on Cymbalta at this time. Due to the fact that she is requesting Prozac to be discontinued, Psychiatry recommend that she will be started on the Cymbalta as she is having some mood issues and is currently not on any medication for mood at this time. ASSESSMENT: 1. Major depressive disorder, recurrent, moderate. 2. Generalized anxiety disorder. 3. Rule out bipolar. PLAN: 1. Restart Cymbalta. 2. Continue Klonopin p.r.n. 3. Monitor for mood. 4. Supportive therapy. Dictated by Sowmya Boyd PA-C Javi Norwood MD [facility]L /[id number]
--- NOTE | 2019-05-28 18:47 | Diagnostic Imaging Report ---
Hepatobiliary Scan with Gallbladder Ejection Fraction Reason for exam: Gallbladder distension and vomiting Report: Following intravenous administration of 5.5 millicuries of Tc-99m mebrofenin, dynamic images of the abdomen in the anterior projection were obtained through 25 minutes. Sincalide (CCK analog) 3.3 micrograms was administered intravenously over 30 minutes with additional imaging for determination of gallbladder ejection fraction. Perfusion to the liver is normal. Extraction of tracer from the blood pool by the liver parenchyma is prolonged. Tracer is seen promptly within the biliary tract. The gallbladder begins to fill by 10 minutes post-injection of tracer. Tracer is seen in the duodenum by 8 minutes and in the small bowel by 25 minutes. The gallbladder ejection fraction with administration of sincalide is 100% (normal greater than 40%). Impression: 1. Filling of the gallbladder excludes the diagnosis of acute cystic duct obstruction/acute cholecystitis. 2. Normal gallbladder ejection fraction of 100% does not support the clinical diagnosis of chronic cholecystitis/gallbladder dyskinesia. 3. Scan evidence of hepatocyte dysfunction evidenced by prolonged extraction of the tracer from the blood pool. Signed by: Dr. Micheline Arambula M.D. on 05/28/2019 6:44 PM
[2019-05-28] MEDS: DEXTROSE 5%/0.45% SOD CHL 1,000 ML IV SCH (19:53)
[2019-05-28 20:00] VITALS: BP 102/72
--- NOTE | 2019-05-28 22:08 | Consultation ---
DATE OF CONSULTATION: 05/27/2019 REASON FOR CONSULTATION: Sepsis. This patient was originally admitted on May 14, 2019, I was asked to see her on May 26, on urgent basis. I had to come and see her on the evening, this was dictated at a later date. HISTORY OF PRESENT ILLNESS: This patient who is a 63-year-old white female, who has history of diabetes mellitus, hypertension, atrial fibrillation, congestive heart failure, coronary artery disease, chronic kidney disease, osteoarthritis, cellulitis, comes to the emergency room with shortness of breath. The patient who has history of obesity, neuropathy. The patient was admitted. She has been seen by Dr. Pham and Dr. Amin. The patient was diagnosed with sepsis. She was given IV antibiotic. The patient grew gram-negative in the blood, which is multidrug resistant, so I am asked to see her. When I saw the patient, she was lying in bed comfortably, feeling weak in general. No specific complaints. 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 She has been seen by Surgery. She was seen by Renal. Reviewed all her record, all the consults since she came and medical as well as radiology department reports. REVIEW OF SYSTEMS: GENERAL: She is just not feeling well. Achy all over. No specific complaints. Little bit nauseous. No vomiting. LABORATORY DATA: Urine showed Klebsiella pneumonia, Enterococcus faecalis, VRE. Blood culture, Klebsiella pneumonia on May 24. Blood culture shows resistant to all the antibiotic except tobramycin and amikacin. Her white count through her stay was within normal limit. White count 8.4, hemoglobin 9, hematocrit 31. Sodium 135, potassium 3.2 with creatinine of 2.15, 1.9 which was back on the . PHYSICAL EXAMINATION: GENERAL: She is currently alert, oriented, does not seem to be in acute distress. VITAL SIGNS: Stable, afebrile. HEENT: Normocephalic, not icteric. NECK: Supple. No JVD. No lymphadenopathy. No thyromegaly. CHEST: Clear bilateral. HEART: S1, S2. No S3, S4, or murmur. ABDOMEN: Soft. The patient has been running fever for some time. IMPRESSION: 1. Sepsis bacteremia with multidrug resistant. Agree with amikacin. However, we had to be careful with her kidney function. We will get amikacin level in the morning. I also recommend to continue with meropenem for the time being given the resistance. She had VRE in the urine, probably cystitis. could be given oral. 2. Diarrhea. C diff could not be obtained, could be due to antibiotic. 3. Chronic kidney disease. 4. Diabetes with neuropathy. 5. Colonization with multidrug resistant. 6. Allergy to several antibiotic. 7. Congestive heart failure. 8. Multiple leg wounds. 9. Possibility of aspiration pneumonia. I am going to talk with the pharmacy and the microbiology sensitivity also to see what can newer antibiotics such as we have on hand for the time being Zyprexa or meropenem Recheck CBC. Recheck Chem panel. continue with her IV fluids and manage her kidney function. We will follow with you. Discussed with Internal Medicine. Discussed with all the physician. Time spent more than [address]/NARGIS /[id number]
[2019-05-29] VITALS (9 sets, daily range): BP systolic 110–141; BP diastolic 68–97
[2019-05-29] MEDS: MEROPENEM 1GM 100 ML IV SCH (01:30)
--- NOTE | 2019-05-29 03:59 | Progress Note ---
DATE: 05/28/2019 Upon evaluating, assessing her medications and discussing with the pharmacist, it appears that her Cymbalta was discontinued because she is currently taking the Linezolid antibiotic, which we will not restart her Cymbalta at this time. Dictated by Sowmya Boyd PA-C MD OTILIA Duque/NARGIS /[id number]
[2019-05-29 05:41] LABS: INR 2.37; PROTHROMBIN TIME 27.7 seconds (11.9-14.5)
[2019-05-29 05:55] LABS: ALBUMIN/GLOBULIN RATIO 0.8 (0.8-2.0); ANION GAP 12.5 mmol/L (8-16); BASOPHILS % 0.6 % (0.0-1.0); CALCIUM 8.9 mg/dL (8.4-10.2); CREATININE, SERUM 2.09 mg/dL (0.57-1.11); EOSINOPHILS # (AUTO) 0.5 (0.0-0.4); EOSINOPHILS % 6.7 % (0.0-6.0); HEMATOCRIT 28.9 % (34.2-44.1); HEMOGLOBIN 8.3 g/dL (12.0-16.0); LYMPHOCYTES % 14.4 % (18.0-39.1); MEAN CORPUSCULAR HEMOGLOBIN 22.3 pg (28-32); MEAN CORPUSCULAR HGB CONC 28.7 g/dL (31-35); MEAN CORPUSCULAR VOLUME 77.7 fL (81-99); MONOCYTES # (AUTO) 0.8 (0.2-0.8); MONOCYTES % 11.8 % (4.4-11.3); NEUTROPHILS # (AUTO) 4.6 (2.1-6.9); NEUTROPHILS % 65.6 % (38.7-80.0); PLATELET COUNT 176 x10e3/uL (140-360); POTASSIUM 3.5 mmol/L (3.5-5.1); RED BLOOD COUNT 3.72 x10e6/uL (3.6-5.1); RED CELL DISTRIBUTION WIDTH 19.6 % (11.7-14.4)
[2019-05-29 06:13] LABS: MAGNESIUM 1.7 MG/DL (1.3-2.1); PHOSPHORUS 3.2 MG/DL (2.3-4.7)
[2019-05-29 06:25] LABS: ABG PH 7.47 (7.31-7.41)
[2019-05-29 06:26] LABS: ABG BASE EXCESS 1.2 mmol/L (-2 - 3); ABG HCO3 24 mmol/L (23-28); ABG PCO2 34 mmHg (41-51); ABG PO2 84 mmHg (80-105)
[2019-05-29] MEDS: IPRATROPIUM BROMIDE 0.02% 2.5 ML NEB NEB SCH ×3 (07:00→22:40)
[2019-05-29 07:08] LABS: ABG HCO3 35 mmol/L (23-28); ABG PCO2 47 mmHg (41-51); ABG PH 7.48 (7.31-7.41); ABG PO2 64 mmHg (80-105)
[2019-05-29] MEDS: LEVOTHYROXINE SODIUM 100 MCG TAB PO SCH (07:15)
[2019-05-29] MEDS: BALSAM PERU/CASTOR OIL 60 GM OINT...G. TP SCH (08:19)
[2019-05-29] MEDS: CLONAZEPAM 1 MG TAB PO PRN (08:23)
[2019-05-29] MEDS: LACTOBACILLUS ACIDOPHILUS CAPSULE PO SCH ×2 (08:23→20:24)
[2019-05-29] MEDS: AMIODARONE HCL 200 MG TAB PO SCH ×2 (08:23→21:00)
[2019-05-29 08:32] LABS: MICROCYTOSIS SLIGHT
[2019-05-29 08:33] LABS: HYPOCHROMASIA SLIGHT; PLATELET ESTIMATE ADEQUATE; PLATELET MORPHOLOGY COMMENT NORMAL
[2019-05-29] MEDS: METOPROLOL SUCCINATE 25 MG TAB XL PO SCH ×2 (08:35→20:48)
[2019-05-29] MEDS: FLUCONAZOLE 200 MG/100 ML 100 ML IV SCH (11:38)
[2019-05-29] MEDS: ONDANSETRON HCL 4 MG ORAL DISINTEGRATING TAB PO PRN ×2 (12:03→20:36)
[2019-05-29] MEDS: CYCLOBENZAPRINE HCL 10 MG TAB PO PRN ×2 (12:03→20:24)
--- NOTE | 2019-05-29 12:06 | Progress Note ---
DATE: 05/29/2019 Cardiology Progress Note SUBJECTIVE: Denies any chest pain or shortness of breath OBJECTIVE: VITAL SIGNS: Telemetry with atrial fibrillation with controlled ventricular response, rate at 90-110. GENERAL: No acute distress, alert. NECK: No JVD. CHEST: Clear to auscultation. CARDIOVASCULAR: Irregularly irregular rate and rhythm. Normal S1, S2. ABDOMEN: Soft, nontender. Bowel sounds positive. EXTREMITIES: Trace edema. CARDIOVASCULAR MEDICATIONS: Reviewed. 1. Metoprolol succinate 25 mg b.i.d. 2. Amiodarone 400 mg every 12 hours. 3. Warfarin 10 mg daily ordered and can be held as needed for procedures. STUDIES: Reviewed. Creatinine 2. Hemoglobin 8.3, platelets 176. INR 2.37. ASSESSMENT AND PLAN: A 63-year-old woman with paroxysmal atrial fibrillation, pneumonia, acute on chronic diastolic heart failure, vasculopath, and leg wounds, presents with recurrent fevers, bacteremia, undergoing treatment for multidrug resistant bacteria by ID. RECOMMENDATIONS: Continue current cardiovascular medications including warfarin for target INR of 2-3 if okay with other treating physicians. Please monitor for interaction with QT prolonging drugs. We will defer ID expertise and needs monitor on telemetry for now, so far no ventricular arrhythmias. MD BARB Sewell/NARGIS /[id number]
[2019-05-29] MEDS: DEXTROSE 5%/0.45% SOD CHL 1,000 ML IV SCH ×2 (12:10→19:51)
[2019-05-29] MEDS: LINEZOLID 600 MG/D5W 300ML 300 ML IV SCH ×2 (13:33)
[2019-05-29] MEDS: FAMOTIDINE 20 MG TAB PO SCH (13:43)
[2019-05-29] MEDS ORDERED: TIGECYCLINE 100 MG in SODIUM CHLORIDE 0.9% 100 ML IV ONE (15:00)
[2019-05-29] MEDS ORDERED: BUMETANIDE INJ 0.25MG/ML 4ML VIAL IV SCH (15:45)
[2019-05-29] MEDS ORDERED: POTASSIUM CHLORIDE 20 MEQ TAB CR PO SCH (15:45)
[2019-05-29] MEDS ORDERED: AMIKACIN SULFATE 250 MG/ML 2ML VIAL IV SCH (16:30)
[2019-05-29] MEDS: AMIKACIN SULFATE IV SCH (18:49)
[2019-05-29] MEDS: SODIUM CHLORIDE 0.9% IV SCH (18:49)
[2019-05-29] MEDS: CHOLESTYRAMINE 4 GM PACKET PO PRN (20:23)
--- NOTE | 2019-05-29 20:29 | Progress Note ---
DATE: 05/29/2019 SUBJECTIVE: The patient has resistant to Klebsiella growing from her urine and blood. She was placed on amikacin and Zyvox. The patient states she does not want to [facility], but would consider another SNF. PHYSICAL EXAMINATION: VITAL SIGNS: The patient is afebrile. The vital signs are stable. CARDIAC: Reveals an irregular regular rhythm with normal S1 and S2. RESPIRATORY: Auscultation of lungs reveal clear breath sounds bilaterally. There is no wheezing. ABDOMEN: Soft and nontender. There is no rebound or guarding. EXTREMITIES: Show no leg edema or calf tenderness. There is no cyanosis or clubbing. SKIN: Shows no rashes. IMPRESSION: 1. Multidrug resistant Klebsiella urinary tract infection with associated bacteremia. 2. Acute on chronic kidney injury. 3. Cholelithiasis. 4. Atrial fibrillation. 5. Acute on chronic congestive heart failure. PLAN: 1. Continue current antibiotics. 2. Continue warfarin. 3. Continue current cardiac regimen. 4. Landaverde. 5. Wound care. 6. Discussed disposition with attending and Case Management. Silvesrte Pham MD [facility] /[id number]
--- NOTE | 2019-05-29 20:49 | Progress Note ---
DATE: 05/29/2019 SUBJECTIVE: Ms. Wahl, who is lying in bed. She says she is feeling better. There is no new complaint. I called the lab to run extra sensitivity on the Klebsiella pneumonia since it was sensitive only to amikacin. This is the third time we are calling, left a message for the flue dust laborer to call me. In the meantime, I spoke with the pharmacy, originally said that they have Tygacil here, but I asked them to start the patient on Vabomere (meropenem and vaborbactam). Because of kidney function, we are going to start 2 g IV piggyback q.8 hours. In the meantime until we get the drug, I am going to put amikacin 1 g IV piggyback q. 48 hours. We finally got a trough today. The patient otherwise has no complaints. I am also going to discontinue her Zyvox and Diflucan. REVIEW OF SYSTEMS: Otherwise is unremarkable. PHYSICAL EXAMINATION: GENERAL: She is currently alert, obese. VITAL SIGNS: Stable. Afebrile. HEENT: She is not icteric. NECK: Supple. CHEST: Clear. HEART: S1 and S2. ABDOMEN: Soft. IMPRESSION: 1. Sepsis on admission with multidrug-resistant pathogen. Now, we are going to put her on amikacin 1 g q.48 hours and we will start on Vabomere. 2. Recheck blood culture so far is negative. Her white count is normal. Her fever has resolved since May 25. 3. Obesity. 4. Chronic kidney disease. Okay to proceed with placement of Landaverde catheter. 5. Diarrhea probably due to antibiotic. 6. Diabetes mellitus with neuropathy. 7. Allergy to several antibiotics. 8. Congestive heart failure. 9. Please refer to my note in chart. Discussed with medical team at length, pharmacy, lab, nurse, physician. MD JASKARAN Lane/NARGIS /[id number]
[2019-05-29] MEDS ORDERED: POTASSIUM CHLORIDE 20 MEQ TAB CR PO NR (21:00)
[2019-05-30] VITALS (7 sets, daily range): BP systolic 107–157; BP diastolic 66–101
[2019-05-30 05:29] LABS: BASOPHILS % 0.7 % (0.0-1.0); EOSINOPHILS # (AUTO) 0.4 (0.0-0.4); EOSINOPHILS % 7.4 % (0.0-6.0); HEMATOCRIT 28.5 % (34.2-44.1); HEMOGLOBIN 8.3 g/dL (12.0-16.0); LYMPHOCYTES # (AUTO) 0.9 (1.0-3.2); LYMPHOCYTES % 16.1 % (18.0-39.1); MEAN CORPUSCULAR HEMOGLOBIN 22.7 pg (28-32); MEAN CORPUSCULAR HGB CONC 29.1 g/dL (31-35); MEAN CORPUSCULAR VOLUME 78.1 fL (81-99); MONOCYTES # (AUTO) 0.5 (0.2-0.8); MONOCYTES % 9.5 % (4.4-11.3); NEUTROPHILS # (AUTO) 3.8 (2.1-6.9); NEUTROPHILS % 65.8 % (38.7-80.0); PLATELET COUNT 204 x10e3/uL (140-360); RED BLOOD COUNT 3.65 x10e6/uL (3.6-5.1); RED CELL DISTRIBUTION WIDTH 19.6 % (11.7-14.4)
[2019-05-30 05:48] LABS: ALBUMIN 2.9 g/dL (3.5-5.0); ALBUMIN/GLOBULIN RATIO 0.8 (0.8-2.0); ANION GAP 8.9 mmol/L (8-16); CALCIUM 8.8 mg/dL (8.4-10.2); CREATININE, SERUM 1.99 mg/dL (0.57-1.11); POTASSIUM 3.9 mmol/L (3.5-5.1)
[2019-05-30] MEDS: LEVOTHYROXINE SODIUM 100 MCG TAB PO SCH (06:30)
[2019-05-30] MEDS: IPRATROPIUM BROMIDE 0.02% 2.5 ML NEB NEB SCH ×3 (07:00→20:05)
[2019-05-30] MEDS ORDERED: TIGECYCLINE 50 MG in SODIUM CHLORIDE 0.9% 100 ML IV SCH (08:00)
[2019-05-30] MEDS ORDERED: [UNRECOGNIZED DRUG - OTHER] IV SCH (09:00)
[2019-05-30] MEDS ORDERED: SODIUM CHLORIDE 0.9% IV SCH (09:00)
--- NOTE | 2019-05-30 09:08 | Diagnostic Imaging Report ---
EXAMINATION: CHEST SINGLE (PORTABLE) INDICATION: Shortness of breath COMPARISON: Chest radiograph 05/28/2019 FINDINGS: The patient is mildly right rotated. LINES/TUBES:Right PICC line terminates in the superior vena cava. EKG leads overlie the chest. LUNGS:The lungs are moderately inflated. There is perihilar fullness and indistinctness of the pulmonary vasculature. PLEURA:No pleural effusion or pneumothorax. MEDIASTINUM:Cardiomediastinal silhouette is stably enlarged. Atherosclerotic calcifications of the thoracic aorta. BONES/SOFT TISSUES:No acute osseous injury. ABDOMEN:No free air under the diaphragm. IMPRESSION: Unchanged cardiomegaly and pulmonary edema. Signed by: Abimbola Garcia MD on 05/30/2019 9:05 AM
[2019-05-30] MEDS: DEXTROSE 5%/0.45% SOD CHL 1,000 ML IV SCH (09:25)
[2019-05-30] MEDS: METOPROLOL SUCCINATE 25 MG TAB XL PO SCH ×2 (09:51→16:39)
[2019-05-30] MEDS: FAMOTIDINE 20 MG TAB PO SCH (09:51)
[2019-05-30] MEDS: LACTOBACILLUS ACIDOPHILUS CAPSULE PO SCH ×2 (09:51→16:39)
[2019-05-30] MEDS: AMIODARONE HCL 200 MG TAB PO SCH (09:51)
--- NOTE | 2019-05-30 11:27 | Progress Note ---
DATE: 05/29/2019 Psychiatric Progress Note SUBJECTIVE: The patient is evaluated and events noted. The patient is in the room. She is doing fair. She reports feeling intermittently anxious and some depression due to her hospitalization. She denies any suicidal or homicidal ideation. She denies any hallucination. Thought process is concrete. No delusion elicited. Insight and judgment are fair. Memory appears to be grossly intact. She reports sleeping and eating well. ASSESSMENT: 1. Major depression disorder, recurrent, moderate. 2. Generalized anxiety disorder. 3. Rule out bipolar. PLAN: 1. Continue Klonopin p.r.n. 2. Monitor for mood. 3. Supportive therapy. Dictated by Sowmya Boyd PA-C Javi Norwood MD [facility] /[id number]
--- NOTE | 2019-05-30 11:46 | Progress Note ---
DATE: 05/30/2019 Cardiology Progress Note SUBJECTIVE: Denies any chest pain or shortness of breath. OBJECTIVE: VITAL SIGNS: Temperature 98.3, heart rate 97, blood pressure 127/91, respiratory rate 20, and O2 saturation 100%. BMI 59.06. GENERAL: In no acute distress. Alert. NECK: No JVD. CHEST: Clear to auscultation. CARDIOVASCULAR: Irregularly irregular rate and rhythm. Normal S1 and S2. ABDOMEN: Soft. Bowel sounds positive. EXTREMITIES: No edema. CARDIOVASCULAR MEDICATIONS: Reviewed. Warfarin 10 mg daily resumed, amiodarone 400 mg every 12 hours, and metoprolol 25 mg b.i.d. STUDIES: Reviewed. Creatinine 1.9. Hemoglobin 8.3 and platelets 204. INR 2.37. ASSESSMENT AND PLAN: 1. A 63-year-old woman with jqxdf-fe-hwckzqj diastolic heart failure, pneumonia, bacteremia with multidrug-resistant organism, lower extremity wounds, chronic renal failure with acute exacerbation and acute kidney injury. 2. Anemia. 3. Morbid obesity. 4. Deconditioning. 5. Paroxysmal atrial fibrillation. RECOMMEND: Decrease amiodarone to 200 mg once daily. Continue warfarin for target INR 2 to 3. Continue metoprolol. Diuretics per Nephrology. MD BARB Sewell/NARGIS /[id number]
[2019-05-30] MEDS: LINEZOLID 600 MG/D5W 300ML 300 ML IV SCH ×2 (12:02)
[2019-05-30] MEDS: NYSTATIN 15 GM POWDER UD BTL TOP SCH (15:28)
[2019-05-30] MEDS: BALSAM PERU/CASTOR OIL 60 GM OINT...G. TP SCH (15:29)
[2019-05-30] MEDS: SODIUM CHLORIDE 0.9% IV SCH (16:39)
[2019-05-30] MEDS: VABORBACTAM IV SCH (16:39)
[2019-05-30] MEDS: MEROPENEM IV SCH (16:39)
[2019-05-30] MEDS: WARFARIN SOD 5 MG TAB PO SCH (16:40)
--- NOTE | 2019-05-30 19:44 | Progress Note ---
DATE: 05/30/2019 SUBJECTIVE: The patient was seen ID again yesterday. Dr. Jacobs is recommending Vabomere along with amikacin. PHYSICAL EXAMINATION: VITAL SIGNS: The patient is afebrile. The vital signs are stable. CARDIAC: Reveals regular rate and rhythm with normal S1 and S2. LUNGS: Auscultation of lungs reveals clear breath sounds bilaterally. There is no wheezing. ABDOMEN: Soft and nontender. There is no rebound or guarding. EXTREMITIES: Shows no leg edema or calf tenderness. IMPRESSION: 1. Multidrug-resistant Klebsiella urinary tract infection with associated bacteremia and sepsis, present on admission. 2. Qwcwm-gu-cokvyhw kidney injury. 3. Atrial fibrillation. 4. Cholelithiasis. 5. Zmykn-vc-raygxmv congestive heart failure. PLAN: 1. Continue current antibiotics. 2. Discussed disposition with Dr. Lambert and case management. 3. Continue warfarin. 4. Decrease amiodarone to 200 mg a day as recommended by Cardiology. Silvestre Pham MD [facility]/CHAZL /[id number]
[2019-05-30] MEDS: CLONAZEPAM 0.5 MG TAB PO PRN (20:32)
--- NOTE | 2019-05-30 21:39 | Progress Note ---
DATE: 05/30/2019 SUBJECTIVE: Ms. Wahl is lying in bed comfortably. She says she is feeling better. She seems to be a little more alert. REVIEW OF SYSTEMS: HEENT: Negative. PULMONARY: Negative. CARDIAC: Negative. : Negative. LABORATORY DATA: Repeat blood cultures are negative 72 hours on the . Her white count is 5.7, hemoglobin 8.3. Sodium 135, potassium 3.9 with creatinine of 1.99, which is coming down. We had an amikacin level came yesterday, which was reviewed. It was 0.8. PHYSICAL EXAMINATION: GENERAL: She is currently alert, oriented, does not seem to be in acute distress. VITAL SIGNS: Stable. Currently afebrile. HEENT: She is not icteric. NECK: Supple. CHEST: Clear. HEART: S1 and S2. ABDOMEN: Soft. IMPRESSION: 1. Sepsis. She is currently on meropenem-vaborbactam 2 g q.8 hours. If blood cultures negative, she would need 14 days. 2. Acute on chronic kidney disease. 3. Vancomycin-resistant bacteriuria. We will discontinue Zyvox. I think she has cystitis, which was treated. 4. Diarrhea, drug related. Clinically seems to be better. 5. She has been on amikacin. The plan is to continue for a few more days. 6. Debility. 7. Discussed with the medical team at length. MD JASKARAN Lane/NARGIS /[id number]
[2019-05-31] VITALS (7 sets, daily range): BP systolic 119–133; BP diastolic 71–94
[2019-05-31] MEDS: DEXTROSE 5%/0.45% SOD CHL 1,000 ML IV SCH ×2 (00:27→16:25)
[2019-05-31] MEDS: VABORBACTAM IV SCH ×3 (00:51→22:20)
[2019-05-31] MEDS: SODIUM CHLORIDE 0.9% IV SCH ×4 (00:51→22:20)
[2019-05-31] MEDS: MEROPENEM IV SCH ×3 (00:51→22:20)
[2019-05-31 05:10] LABS: BASOPHILS % 0.7 % (0.0-1.0); EOSINOPHILS # (AUTO) 0.4 (0.0-0.4); EOSINOPHILS % 6.1 % (0.0-6.0); HEMATOCRIT 27.7 % (34.2-44.1); HEMOGLOBIN 8.1 g/dL (12.0-16.0); LYMPHOCYTES # (AUTO) 1.1 (1.0-3.2); MEAN CORPUSCULAR HEMOGLOBIN 22.6 pg (28-32); MEAN CORPUSCULAR HGB CONC 29.2 g/dL (31-35); MEAN CORPUSCULAR VOLUME 77.4 fL (81-99); MONOCYTES # (AUTO) 0.4 (0.2-0.8); NEUTROPHILS # (AUTO) 4.1 (2.1-6.9); NEUTROPHILS % 67.4 % (38.7-80.0); PLATELET COUNT 230 x10e3/uL (140-360); RED BLOOD COUNT 3.58 x10e6/uL (3.6-5.1); RED CELL DISTRIBUTION WIDTH 19.5 % (11.7-14.4)
[2019-05-31 05:24] LABS: ANION GAP 11.9 mmol/L (8-16); CALCIUM 8.9 mg/dL (8.4-10.2); CREATININE, SERUM 1.86 mg/dL (0.57-1.11); POTASSIUM 3.9 mmol/L (3.5-5.1)
[2019-05-31 05:33] LABS: INR 1.9; PROTHROMBIN TIME 23.2 seconds (11.9-14.5)
--- NOTE | 2019-05-31 06:14 | Diagnostic Imaging Report ---
EXAMINATION: CHEST SINGLE (PORTABLE) INDICATION: Pulmonary edema. COMPARISON: Chest radiograph 05/30/2019. FINDINGS: Exam is somewhat limited by portable technique. The bilateral costophrenic angle are partially excluded from the lclxu-qv-nsgj. LINES/TUBES:Right PICC terminates in the superior vena cava. LUNGS:Low lung volumes. There is perihilar fullness and indistinctness of the pulmonary vasculature. PLEURA:No pleural effusion or pneumothorax. MEDIASTINUM:Cardiomediastinal silhouette is stably enlarged. Atherosclerotic calcifications of the thoracic aorta. BONES/SOFT TISSUES:No acute osseous abnormality. ABDOMEN:No free air under the diaphragm. IMPRESSION: Unchanged cardiomegaly and pulmonary interstitial edema. Signed by: Dr. Marcus Winston MD on 05/31/2019 6:11 AM
[2019-05-31] MEDS: LEVOTHYROXINE SODIUM 100 MCG TAB PO SCH (06:15)
[2019-05-31] MEDS: IPRATROPIUM BROMIDE 0.02% 2.5 ML NEB NEB SCH ×3 (06:58→20:50)
[2019-05-31] MEDS: NYSTATIN 15 GM POWDER UD BTL TOP SCH (09:03)
[2019-05-31] MEDS: BALSAM PERU/CASTOR OIL 60 GM OINT...G. TP SCH (09:03)
[2019-05-31] MEDS: LACTOBACILLUS ACIDOPHILUS CAPSULE PO SCH ×2 (09:07→16:25)
[2019-05-31] MEDS: FAMOTIDINE 20 MG TAB PO SCH (09:07)
[2019-05-31] MEDS: AMIODARONE HCL 200 MG TAB PO SCH (09:07)
[2019-05-31] MEDS: METOPROLOL SUCCINATE 25 MG TAB XL PO SCH ×2 (09:07→16:26)
[2019-05-31] MEDS: WARFARIN SOD 5 MG TAB PO SCH (16:25)
--- NOTE | 2019-05-31 16:38 | Progress Note ---
DATE: 05/31/2019 Cardiology Progress Note SUBJECTIVE: Denies any chest pain or shortness of breath. OBJECTIVE: VITAL SIGNS: Atrial fibrillation on telemetry. Heart rate 105, temperature 98.2, blood pressure 122/76, and O2 saturation 97% on nasal cannula. GENERAL: In no acute distress. Alert. NECK: No JVD. CHEST: Clear to auscultation. CARDIOVASCULAR: Irregular rate and rhythm. Normal S1 and S2. ABDOMEN: Soft. Bowel sounds positive. EXTREMITIES: No edema. Wounds to lower extremity, left ankle covered with dressings. CARDIOVASCULAR MEDICATIONS: Reviewed. Amiodarone 200 mg daily, metoprolol 25 mg every 12 hours, and warfarin 10 mg daily. STUDIES: Reviewed. Remarkable for hemoglobin 8.1, creatinine 1.8 and INR 1.9. ASSESSMENT AND PLAN: 1. Svhlx-ht-rgbtfga systolic heart failure. 2. Atrial fibrillation. 3. Pneumonia. 4. Bacteremia. 5. Morbid obesity. 6. Renal failure. 7. Anemia. RECOMMEND: Continue current cardiovascular medications. Target INR 2 to 3. MD BARB Sewell/CHAZL /[id number]
[2019-05-31] MEDS ORDERED: FUROSEMIDE INJ 10 MG/ML 4 ML VIAL IV SCH (17:00)
[2019-05-31] MEDS ORDERED: DEXTROSE 5%/0.45% SOD CHL 1,000 ML IV SCH (17:00)
--- NOTE | 2019-05-31 18:24 | Progress Note ---
DATE: 05/31/2019 SUBJECTIVE: The patient has no new complaints. She did stand and walk a few steps with physical therapy. PHYSICAL EXAMINATION: VITAL SIGNS: The patient is afebrile. The vital signs are stable. HEENT: Shows no facial swelling or erythema. CARDIAC: Reveals regular rate and rhythm with normal S1 and S2. LUNGS: Auscultation of lungs reveals a few crackles at both bases. There is no wheezing. ABDOMEN: Soft and nontender. There is no rebound or guarding. EXTREMITIES: Shows no leg edema or calf tenderness. There is no cyanosis or clubbing. SKIN: Shows no rashes. IMPRESSION: 1. Multidrug-resistant Klebsiella urinary tract infection with associated bacteremia and sepsis, present on admission. 2. Yraco-gy-rthzmdp kidney injury. 3. Atrial fibrillation. 4. Cholelithiasis. 5. Gftym-ws-wkuwibf congestive heart failure. PLAN: 1. Continue current antibiotics. 2. Continue current cardiac regimen. 3. Out of bed as tolerated. 4. Physical therapy. Silvestre Pham MD [facility]/MODL /[id number]
[2019-05-31] MEDS: AMIKACIN SULFATE IV SCH (18:30)
[2019-05-31] MEDS ORDERED: SODIUM CHLORIDE 0.9% 250ML 250 ML ONE (22:35)
[2019-06-01] VITALS (7 sets, daily range): BP systolic 114–131; BP diastolic 69–88
[2019-06-01] MEDS: LEVOTHYROXINE SODIUM 100 MCG TAB PO SCH (05:27)
[2019-06-01 05:28] LABS: BASOPHILS % 0.7 % (0.0-1.0); EOSINOPHILS # (AUTO) 0.3 (0.0-0.4); EOSINOPHILS % 5.8 % (0.0-6.0); HEMATOCRIT 28.5 % (34.2-44.1); HEMOGLOBIN 8.2 g/dL (12.0-16.0); LYMPHOCYTES # (AUTO) 1.1 (1.0-3.2); LYMPHOCYTES % 19.3 % (18.0-39.1); MEAN CORPUSCULAR HEMOGLOBIN 22.3 pg (28-32); MEAN CORPUSCULAR HGB CONC 28.8 g/dL (31-35); MEAN CORPUSCULAR VOLUME 77.7 fL (81-99); MONOCYTES # (AUTO) 0.4 (0.2-0.8); MONOCYTES % 7.7 % (4.4-11.3); NEUTROPHILS # (AUTO) 3.8 (2.1-6.9); PLATELET COUNT 239 x10e3/uL (140-360); RED BLOOD COUNT 3.67 x10e6/uL (3.6-5.1); RED CELL DISTRIBUTION WIDTH 19.6 % (11.7-14.4)
[2019-06-01 05:55] LABS: ALBUMIN/GLOBULIN RATIO 0.8 (0.8-2.0); ANION GAP 9.8 mmol/L (8-16); CREATININE, SERUM 1.93 mg/dL (0.57-1.11); MAGNESIUM 1.7 MG/DL (1.3-2.1); POTASSIUM 3.8 mmol/L (3.5-5.1)
--- NOTE | 2019-06-01 06:55 | Diagnostic Imaging Report ---
EXAMINATION: CHEST SINGLE (PORTABLE) INDICATION: Shortness of breath. COMPARISON: Chest radiograph 05/31/2019. FINDINGS: Exam is somewhat limited by portable technique. LINES/TUBES:Right PICC terminates in the upper superior vena cava. LUNGS:Low lung volume on the right. There is increasing perihilar fullness and indistinctness of the pulmonary vasculature, asymmetric to the right. PLEURA:Trace right pleural effusion. No pneumothorax. MEDIASTINUM:Cardiomediastinal silhouette is stably enlarged. Atherosclerotic calcifications of the thoracic aorta. BONES/SOFT TISSUES:No acute osseous abnormality. ABDOMEN:No free air under the diaphragm. IMPRESSION: Cardiomegaly with increasing pulmonary edema, asymmetric to the right. Signed by: Dr. Marcus Winston MD on 06/01/2019 6:52 AM
[2019-06-01] MEDS: IPRATROPIUM BROMIDE 0.02% 2.5 ML NEB NEB SCH ×4 (07:13→23:15)
--- NOTE | 2019-06-01 08:46 | Progress Note ---
DATE: 05/31/2019 Psychiatric Progress Note SUBJECTIVE: The patient evaluated and events noted. The patient is in the room. She is alert, awake, and oriented to situation. She is depressed. She denies any suicidal or homicidal ideation. She denies any hallucination. She denies any problem with medication. She reported intermittent sleep as well. Later Nursing staff called me and asked if she can restart her Klonopin dropped off. ASSESSMENT: 1. Major depressive disorder, recurrent, moderate. 2. Generalized anxiety disorder. 3. Rule out bipolar. PLAN: We will start Klonopin 0.5 mg p.o. q.6 hours as needed. Monitor for mood. Supportive therapy. Dictated by Sowmya Boyd PA-C Javi Norwood MD [facility]/MODL /[id number]
[2019-06-01] MEDS: VABORBACTAM IV SCH ×2 (09:01→22:40)
[2019-06-01] MEDS: SODIUM CHLORIDE 0.9% IV SCH ×2 (09:01→22:40)
[2019-06-01] MEDS: FAMOTIDINE 20 MG TAB PO SCH (09:01)
[2019-06-01] MEDS: LACTOBACILLUS ACIDOPHILUS CAPSULE PO SCH ×2 (09:01→17:17)
[2019-06-01] MEDS: AMIODARONE HCL 200 MG TAB PO SCH (09:01)
[2019-06-01] MEDS: MEROPENEM IV SCH ×2 (09:01→22:40)
[2019-06-01] MEDS: NYSTATIN 15 GM POWDER UD BTL TOP SCH (09:02)
[2019-06-01] MEDS: METOPROLOL SUCCINATE 25 MG TAB XL PO SCH ×2 (09:02→17:18)
[2019-06-01] MEDS ORDERED: CEFTAZIDIME/AVIBACTAM 2.5 GM VIAL IV SCH (10:30)
--- NOTE | 2019-06-01 11:31 | Progress Note ---
DATE: 06/01/2019 Cardiology Progress Note SUBJECTIVE: Denies any chest pain or shortness of breath. OBJECTIVE: VITAL SIGNS: Temperature 97.5, heart rate 108, respiratory rate 20, blood pressure 129/85, O2 saturation 100% on nasal cannula. GENERAL: In no acute distress. Alert. NECK: No JVD. CHEST: With decreased breath sounds. CARDIOVASCULAR: Irregularly irregular rate and rhythm. Normal S1 and S2. ABDOMEN: Soft. Bowel sounds positive. EXTREMITIES: Trace edema. CARDIOVASCULAR MEDICATIONS: Reviewed. Amiodarone 200 mg daily and warfarin 10 mg daily. STUDIES: Reviewed. Hemoglobin 8.2, platelets 239. Chest x-ray with increase in pulmonary edema. Creatinine 1.9, glucose 91. BNP increased at 1604. ASSESSMENT AND PLAN: 1. Acute on chronic diastolic heart failure. 2. Pneumonia. 3. Morbid obesity. 4. Paroxysmal atrial fibrillation. 5. Bacteremia. 6. Deconditioning. 7. Leg wounds. RECOMMENDATIONS: Resume Lasix 40 mg IV b.i.d. Continue rest of cardiovascular medications. Adjust warfarin as needed for target INR of 2 to 3. MD BARB Sewell/NARGIS /[id number]
[2019-06-01] MEDS: BALSAM PERU/CASTOR OIL 60 GM OINT...G. TP SCH (15:59)
[2019-06-01] MEDS: WARFARIN SOD 5 MG TAB PO SCH (17:17)
--- NOTE | 2019-06-01 18:28 | Progress Note ---
DATE: 06/01/2019 SUBJECTIVE: The patient has no new complaints. PHYSICAL EXAMINATION: VITAL SIGNS: The blood pressure is 114/69 and saturation is 98%. The pulse is 100 to 110. CARDIAC: Reveals regular rate and rhythm with normal S1, S2. LUNGS: Auscultation of lungs shows clear breath sounds bilaterally. There is wheezing. ABDOMEN: Soft, nontender. There is no rebound or guarding. EXTREMITIES: Show no leg edema or calf tenderness. There is no cyanosis or clubbing. IMPRESSION: 1. Multidrug-resistant Klebsiella urinary tract infection with associated bacteremia and sepsis, present on admission. 2. Atrial fibrillation. 3. Cholelithiasis. 4. Acute on chronic kidney injury. 5. Acute on chronic congestive heart failure. PLAN: 1. Continue current antibiotics. 2. Discussed disposition with Dr. Campbell and Case Management. 3. Continue current cardiac regimen. 4. Continue anticoagulation. 5. Physical therapy. Silvestre Pham MD [facility]/NARGIS /[id number]
[2019-06-01] MEDS ORDERED: VABORBACTAM IV SCH (21:00)
[2019-06-01] MEDS ORDERED: SODIUM CHLORIDE 0.9% IV SCH (21:00)
[2019-06-01] MEDS ORDERED: MEROPENEM/VABORBACTAM 2 GM VIAL IV SCH (21:00)
[2019-06-01] MEDS ORDERED: MEROPENEM IV SCH (21:00)
[2019-06-01] MEDS ORDERED: SODIUM CHLORIDE 0.9% 250ML 250 ML ONE (22:27)
[2019-06-01] MEDS: FUROSEMIDE INJ 10 MG/ML 4 ML VIAL IV SCH (22:40)
[2019-06-02] VITALS (8 sets, daily range): BP systolic 121–138; BP diastolic 72–98
[2019-06-02 06:01] LABS: BASOPHILS # (AUTO) 0.1 (0.0-0.1); BASOPHILS % 0.8 % (0.0-1.0); EOSINOPHILS # (AUTO) 0.3 (0.0-0.4); HEMATOCRIT 28.5 % (34.2-44.1); HEMOGLOBIN 8.3 g/dL (12.0-16.0); LYMPHOCYTES % 16.7 % (18.0-39.1); MEAN CORPUSCULAR HEMOGLOBIN 22.6 pg (28-32); MEAN CORPUSCULAR HGB CONC 29.1 g/dL (31-35); MEAN CORPUSCULAR VOLUME 77.7 fL (81-99); MONOCYTES # (AUTO) 0.6 (0.2-0.8); MONOCYTES % 9.3 % (4.4-11.3); NEUTROPHILS # (AUTO) 4.1 (2.1-6.9); NEUTROPHILS % 67.4 % (38.7-80.0); PLATELET COUNT 247 x10e3/uL (140-360); RED BLOOD COUNT 3.67 x10e6/uL (3.6-5.1); RED CELL DISTRIBUTION WIDTH 19.8 % (11.7-14.4)
[2019-06-02 06:05] LABS: INR 2.2; PROTHROMBIN TIME 26.1 seconds (11.9-14.5)
[2019-06-02 06:11] LABS: ANION GAP 9.8 mmol/L (8-16); CALCIUM 9.2 mg/dL (8.4-10.2); CREATININE, SERUM 1.59 mg/dL (0.57-1.11); MAGNESIUM 1.7 MG/DL (1.3-2.1); POTASSIUM 3.8 mmol/L (3.5-5.1)
[2019-06-02] MEDS: LEVOTHYROXINE SODIUM 100 MCG TAB PO SCH (06:16)
[2019-06-02] MEDS: IPRATROPIUM BROMIDE 0.02% 2.5 ML NEB NEB SCH ×2 (06:40→13:00)
--- NOTE | 2019-06-02 07:32 | Diagnostic Imaging Report ---
Examination: Single AP view of the chest. COMPARISON: Portable chest 06/01/2019 INDICATION: Shortness of breath, SOB IMPRESSION: 1. Lines and Tubes: Stable right-sided PICC line 2. Lungs are well-inflated. No interval change in bilateral interstitial pulmonary edema, right greater than left and likely associated trace right pleural effusion. No consolidation. 3. Stable enlargement of the cardiac silhouette Central pulmonary venous congestion 4. No acute bony abnormalities. Signed by: Dr. Austin Magaña M.D. on 06/02/2019 7:29 AM
[2019-06-02] MEDS: MEROPENEM IV SCH ×2 (11:49→23:45)
[2019-06-02] MEDS: VABORBACTAM IV SCH ×2 (11:49→23:45)
[2019-06-02] MEDS: FUROSEMIDE INJ 10 MG/ML 4 ML VIAL IV SCH ×2 (11:49→21:46)
[2019-06-02] MEDS: SODIUM CHLORIDE 0.9% IV SCH ×2 (11:49→23:45)
[2019-06-02] MEDS: AMIODARONE HCL 200 MG TAB PO SCH (11:49)
[2019-06-02] MEDS: NYSTATIN 15 GM POWDER UD BTL TOP SCH (11:50)
[2019-06-02] MEDS: LACTOBACILLUS ACIDOPHILUS CAPSULE PO SCH ×2 (11:50→17:48)
[2019-06-02] MEDS: FAMOTIDINE 20 MG TAB PO SCH (11:50)
[2019-06-02] MEDS: BALSAM PERU/CASTOR OIL 60 GM OINT...G. TP SCH (11:50)
[2019-06-02] MEDS: METOPROLOL SUCCINATE 25 MG TAB XL PO SCH ×2 (11:50→17:48)
[2019-06-02] MEDS ORDERED: WARFARIN SOD 5 MG TAB PO SCH (17:00)
--- NOTE | 2019-06-02 17:43 | Progress Note ---
DATE: 06/02/2019 Cardiology Progress Note SUBJECTIVE: No complaints today. Denies chest pain. OBJECTIVE: VITAL SIGNS: Temperature 98.5, heart rate 82, respiratory rate 20, blood pressure 121/83, O2 saturation 98% on 2 L/minute nasal cannula. GENERAL: In no acute distress, alert. NECK: No JVD. CHEST: Clear to auscultation. CARDIOVASCULAR: Irregularly irregular rate and rhythm. Normal S1, S2. ABDOMEN: Soft. Bowel sounds positive. EXTREMITIES: No edema. CARDIOVASCULAR MEDICATIONS: Furosemide 40 mg IV every 12 hours, amiodarone 200 mg daily, warfarin 10 mg daily, metoprolol 25 mg b.i.d. LABORATORY DATA: Hemoglobin 8.3, INR 2.2, creatinine 1.59. ASSESSMENT AND PLAN: 1. Acute on chronic diastolic heart failure. 2. Paroxysmal atrial fibrillation. 3. Pneumonia. 4. Bacteremia. 5. Chronic leg wounds. 6. Deconditioning. 7. Morbid obesity. Recommend continue current cardiovascular medications. Dylan Ventura MD [facility]L /[id number]
[2019-06-02] MEDS ORDERED: AMIKACIN SULFATE IV SCH (18:00)
[2019-06-02] MEDS ORDERED: SODIUM CHLORIDE 0.9% IV SCH (18:00)
[2019-06-02] MEDS: CHOLESTYRAMINE 4 GM PACKET PO PRN (18:42)
--- NOTE | 2019-06-02 23:54 | Progress Note ---
DATE: 06/02/2019 SUBJECTIVE: Ms. Wahl is doing better. There is no new complaint. REVIEW OF SYSTEMS: HEENT: Negative. PULMONARY: Negative. PHYSICAL EXAMINATION: GENERAL: She is currently alert, oriented, and does not seem in acute distress. VITAL SIGNS: Stable, currently afebrile. HEENT: Not icteric. NECK: Supple. CHEST: Clear. HEART: S1, S2. No S3, S4, or murmur. ABDOMEN: Soft. IMPRESSION: Sepsis with Klebsiella pneumoniae multidrug resistant, on amikacin, doing well. To finish 14 days. Discussed case management. Plan for her to go to skilled care. Other medical problem as above. Discussed with the medical team. MD JASKARAN Lane/NARGIS /[id number]
[2019-06-03] VITALS (8 sets, daily range): BP systolic 115–135; BP diastolic 69–88
[2019-06-03] MEDS: LEVOTHYROXINE SODIUM 100 MCG TAB PO SCH (06:15)
[2019-06-03 06:30] LABS: BASOPHILS # (AUTO) 0.1 (0.0-0.1); BASOPHILS % 0.8 % (0.0-1.0); EOSINOPHILS # (AUTO) 0.3 (0.0-0.4); EOSINOPHILS % 4.4 % (0.0-6.0); HEMATOCRIT 27.6 % (34.2-44.1); HEMOGLOBIN 8.1 g/dL (12.0-16.0); LYMPHOCYTES % 15.5 % (18.0-39.1); MEAN CORPUSCULAR HEMOGLOBIN 22.8 pg (28-32); MEAN CORPUSCULAR HGB CONC 29.3 g/dL (31-35); MEAN CORPUSCULAR VOLUME 77.7 fL (81-99); MONOCYTES # (AUTO) 0.6 (0.2-0.8); MONOCYTES % 9.4 % (4.4-11.3); NEUTROPHILS # (AUTO) 4.3 (2.1-6.9); NEUTROPHILS % 69.3 % (38.7-80.0); PLATELET COUNT 233 x10e3/uL (140-360); RED BLOOD COUNT 3.55 x10e6/uL (3.6-5.1); RED CELL DISTRIBUTION WIDTH 19.8 % (11.7-14.4)
[2019-06-03 06:44] LABS: INR 2.55; PROTHROMBIN TIME 29.4 seconds (11.9-14.5)
[2019-06-03 06:50] LABS: ANION GAP 10.6 mmol/L (8-16); CALCIUM 9.2 mg/dL (8.4-10.2); CREATININE, SERUM 1.5 mg/dL (0.57-1.11); MAGNESIUM 1.6 MG/DL (1.3-2.1); POTASSIUM 3.6 mmol/L (3.5-5.1)
[2019-06-03] MEDS: IPRATROPIUM BROMIDE 0.02% 2.5 ML NEB NEB SCH ×3 (07:05→19:35)
--- NOTE | 2019-06-03 07:33 | Diagnostic Imaging Report ---
EXAMINATION: CHEST SINGLE (PORTABLE) COMPARISON: Chest x-ray 06/02/2019, chest x-ray 05/27/2019 INDICATION: CHF ^PULM EDEMA ^[id number] ^0550 DISCUSSION: Frontal view of the chest obtained at 0600 hours. HEART AND MEDIASTINUM: Stable cardiomegaly and aortic ectasia. The pulmonary arteries are enlarged and stable in morphology LINES: Right PICC line terminates in the SVC LUNGS: Stable pulmonary vascular congestion. No interstitial edema. Small amount of left basilar atelectasis. No new airspace opacities in the right lung. PLEURA: No large effusions. No pneumothorax BONES AND SOFT TISSUES: Stable sclerotic intramedullary lesion in the right humeral head/neck is suggestive of bone infarct or enchondroma. The soft tissues are normal. IMPRESSION: No change in cardiomegaly and pulmonary vascular congestion. Enlarged pulmonary arteries are suggestive of pulmonary artery hypertension. No new cardiopulmonary findings. Signed by: Dr. Mari Hernandez MD on 06/03/2019 7:29 AM
[2019-06-03] MEDS: MEROPENEM IV SCH ×2 (10:05→21:55)
[2019-06-03] MEDS: SODIUM CHLORIDE 0.9% IV SCH ×2 (10:05→21:55)
[2019-06-03] MEDS: FUROSEMIDE INJ 10 MG/ML 4 ML VIAL IV SCH ×2 (10:05→21:55)
[2019-06-03] MEDS: VABORBACTAM IV SCH ×2 (10:05→21:55)
[2019-06-03] MEDS: NYSTATIN 15 GM POWDER UD BTL TOP SCH (10:06)
[2019-06-03] MEDS: FAMOTIDINE 20 MG TAB PO SCH (10:06)
[2019-06-03] MEDS: METOPROLOL SUCCINATE 25 MG TAB XL PO SCH ×2 (10:06→18:17)
[2019-06-03] MEDS: AMIODARONE HCL 200 MG TAB PO SCH (10:06)
[2019-06-03] MEDS: LACTOBACILLUS ACIDOPHILUS CAPSULE PO SCH ×2 (10:06→18:16)
[2019-06-03] MEDS: BALSAM PERU/CASTOR OIL 60 GM OINT...G. TP SCH (10:06)
[2019-06-03] MEDS: WARFARIN SOD 5 MG TAB PO SCH (18:16)
[2019-06-03] MEDS: CHOLESTYRAMINE 4 GM PACKET PO SCH (18:16)
[2019-06-03] MEDS ORDERED: FUROSEMIDE INJ 10 MG/ML 4 ML VIAL IV ONE (20:00)
[2019-06-03] MEDS ORDERED: SODIUM CHLORIDE 0.9% 250ML 250 ML ONE (20:01)
--- NOTE | 2019-06-03 20:31 | Progress Note ---
DATE: 06/03/2019 Cardiology Progress Note SUBJECTIVE: Denies any chest pain. Shortness of breath is slightly worse. OBJECTIVE: VITAL SIGNS: Temperature 98.4, heart rate 117, respiratory rate 19, blood pressure 115/96, and O2 saturation 96% on 2 L/minute nasal cannula. GENERAL: In no acute distress. Alert. NECK: No JVD. CHEST: Decreased breath sounds. Scattered rales. CARDIOVASCULAR: Irregularly irregular rate and rhythm. Normal S1 and S2. Systolic ejection murmur. ABDOMEN: Soft. Bowel sounds positive. EXTREMITIES: Trace edema. CARDIOVASCULAR MEDICATIONS: Metoprolol succinate 25 mg b.i.d., warfarin decreased to 5 mg daily, amiodarone 200 mg daily, and furosemide 40 mg IV b.i.d. STUDIES: Reviewed. White blood cells 6.1, hemoglobin 8.1, and platelets 233. INR 2.55. Creatinine 1.5. Chest x-ray with cardiomegaly and pulmonary vascular congestion, enlarged pulmonary artery suggestive of pulmonary arterial hypertension. ASSESSMENT AND PLAN: 1. Remains volume overloaded with atrial fibrillation with rapid ventricular response noted on telemetry. Antibiotics at the discretion of Infectious Disease expertise. Continue with current diuretic dose with additional 40 mg IV dose today. 2. Continue rest of cardiovascular medication. Dylan Ventura MD [facility] /[id number]
[2019-06-03] MEDS: CYCLOBENZAPRINE HCL 10 MG TAB PO PRN (23:14)
[2019-06-04] VITALS (8 sets, daily range): BP systolic 109–140; BP diastolic 69–78
[2019-06-04] MEDS: LEVOTHYROXINE SODIUM 100 MCG TAB PO SCH (06:00)
[2019-06-04 06:10] LABS: INR 2.78; PROTHROMBIN TIME 31.5 seconds (11.9-14.5)
[2019-06-04 06:19] LABS: ANION GAP 13.4 mmol/L (8-16); CALCIUM 9.1 mg/dL (8.4-10.2); CREATININE, SERUM 1.53 mg/dL (0.57-1.11); MAGNESIUM 1.6 MG/DL (1.3-2.1); POTASSIUM 3.4 mmol/L (3.5-5.1)
[2019-06-04] MEDS: IPRATROPIUM BROMIDE 0.02% 2.5 ML NEB NEB SCH ×4 (07:35→20:50)
--- NOTE | 2019-06-04 09:07 | Diagnostic Imaging Report ---
EXAMINATION: CHEST SINGLE (PORTABLE) INDICATION: Shortness of breath COMPARISON: Multiple prior chest radiograph, most recently 06/03/2019 FINDINGS: LINES/TUBES:Right PICC line terminates in the superior vena cava. EKG leads overlie the chest. LUNGS:The lungs are moderately inflated. There is perihilar fullness and indistinctness of the pulmonary vasculature. PLEURA:No pleural effusion or pneumothorax. MEDIASTINUM:Cardiomediastinal silhouette is stably enlarged. Atherosclerotic calcifications of the thoracic aorta. BONES/SOFT TISSUES:No acute osseous injury. ABDOMEN:No free air under the diaphragm. IMPRESSION: Cardiomegaly and pulmonary interstitial edema. Signed by: Abimbola Garcia MD on 06/04/2019 9:04 AM
[2019-06-04] MEDS: NYSTATIN 15 GM POWDER UD BTL TOP SCH (09:59)
[2019-06-04] MEDS: VABORBACTAM IV SCH (09:59)
[2019-06-04] MEDS: CHOLESTYRAMINE 4 GM PACKET PO SCH ×2 (09:59→16:43)
[2019-06-04] MEDS: METOPROLOL SUCCINATE 25 MG TAB XL PO SCH ×2 (09:59→16:43)
[2019-06-04] MEDS: SODIUM CHLORIDE 0.9% IV SCH ×2 (09:59→17:40)
[2019-06-04] MEDS: LACTOBACILLUS ACIDOPHILUS CAPSULE PO SCH ×2 (09:59→16:43)
[2019-06-04] MEDS: FUROSEMIDE INJ 10 MG/ML 4 ML VIAL IV SCH (09:59)
[2019-06-04] MEDS: MEROPENEM IV SCH (09:59)
[2019-06-04] MEDS: FAMOTIDINE 20 MG TAB PO SCH (09:59)
[2019-06-04] MEDS: BALSAM PERU/CASTOR OIL 60 GM OINT...G. TP SCH (10:00)
--- NOTE | 2019-06-04 10:24 | Progress Note ---
DATE: 05/31/2019 Psychiatric Progress Note SUBJECTIVE: The patient evaluated, events noted. The patient is in the room. She is well. She denies any depression. She denies anxiety. She denies any hallucination. She denies any thoughts of self-harm. She is calm and cooperative. She denies any side effects from medications. ASSESSMENT: 1. Major depressive disorder, recurrent, moderate. 2. Generalized anxiety disorder. PLAN: 1. Continue with medications at this time. 2. Supportive therapy. Dictated by Sowmya Boyd PA-C Javi Norwood MD [facility]/MODL /[id number]
[2019-06-04] MEDS: AMIODARONE HCL 200 MG TAB PO SCH ×2 (10:27→21:10)
--- NOTE | 2019-06-04 10:34 | Progress Note ---
DATE: 06/01/2019 Psychiatric Progress Note SUBJECTIVE: The patient evaluated, events noted. The patient is in the room. She is calm. She has some issues with placement once discharged. Discussed with Case Management. The patient is afraid that she would be having to stay at a long-term facility/rehab for a long period of time and goal is to go home with the provider and the patient is willing to work with Case Management is her stay at a facility is short. She denies any depression. She is anxious. She denies any suicidal or homicidal ideation. She denies any hallucination. She denies any side effects from medications. ASSESSMENT: 1. Major depressive disorder, recurrent, moderate. 2. Generalized anxiety disorder. PLAN: 1. Continue with medications p.r.n., on Klonopin at this time. 2. Monitor for mood. 3. Supportive therapy. Dictated by Sowmya Boyd PA-C Javi Norwood MD [facility] /[id number]
--- NOTE | 2019-06-04 11:20 | Progress Note ---
DATE: 06/04/2019 Cardiology Progress Note SUBJECTIVE: Denies any chest pain or shortness of breath. OBJECTIVE: VITAL SIGNS: Temperature 97.1, heart rate 115, respiratory rate 19, blood pressure 126/72, O2 saturation 95% on 2 L/minute nasal cannula. GENERAL: In no acute distress. Alert. NECK: No JVD. CHEST: Clear to auscultation. CARDIOVASCULAR: Irregularly irregular rate and rhythm. Normal S1 and S2. No S3 or S4. ABDOMEN: Soft. Bowel sounds positive. EXTREMITIES: Trace edema. CARDIOVASCULAR MEDICATIONS: Reviewed. Furosemide 40 mg IV every 12 hours, warfarin 5 mg daily, amiodarone 200 mg daily, metoprolol succinate 25 mg b.i.d. STUDIES: Reviewed. White blood cells 6.1, hemoglobin 8.1, platelets 233. INR 2.78, creatinine 1.5, BUN 34. Sodium 140, potassium 3.4, magnesium 1.6. On telemetry; atrial fibrillation with episodes of rapid ventricular response. ASSESSMENT AND PLAN: 1. Acute on chronic diastolic heart failure. 2. Pneumonia. 3. Atrial fibrillation. 4. Morbid obesity. 5. Hypertension. 6. Lower extremity wounds. 7. Sepsis from Klebsiella pneumoniae. RECOMMENDATIONS: 1. Continue current diuretic dose. 2. Increase amiodarone to 200 mg b.i.d. for improved rate control. 3. Continue metoprolol. 4. Continue warfarin for target INR 2-3. 5. Please call with any questions. MD BARB Sewell/CHAZL /[id number]
--- NOTE | 2019-06-04 14:01 | Progress Note ---
DATE: 06/04/2019 Psychiatric Progress Note SUBJECTIVE: The patient evaluated and events noted. The patient is in her room. She is calm and cooperative. She reports intermittent depression and anxiety. She denies any hallucination. She denies any suicidal ideation. She reports sleeping and eating well. She is getting p.r.n. Klonopin. Linezolid has been discontinued. Restart small dose of Cymbalta for her. ASSESSMENT: 1. Major depressive disorder, recurrent, moderate. 2. Generalized anxiety disorder. PLAN: 1. Continue Klonopin p.r.n. 2. Restart Cymbalta. 3. Monitor for mood. 4. Supportive therapy. Dictated by Sowmya Boyd PA-C Javi Norwood MD [facility]L /[id number]
[2019-06-04] MEDS ORDERED: POTASSIUM CHLORIDE 20 MEQ TAB CR PO SCH (15:15)
[2019-06-04] MEDS ORDERED: AMIKACIN SULFATE 250 MG/ML 2ML VIAL IV SCH (15:30)
--- NOTE | 2019-06-04 16:20 | Progress Note ---
DATE: 06/04/2019 SUBJECTIVE: The patient had some tachycardia. She had a low-grade temperature to 99.6. She is not complaining of cough or difficulty breathing. PHYSICAL EXAMINATION: VITAL SIGNS: The patient is afebrile. The blood pressure is 124/70 and the pulse is 131. Saturation is 92% on 2 L. HEENT: Shows no facial swelling or erythema. CARDIAC: Reveals regular rate and rhythm with normal S1 and S2. There are no murmurs or rubs. LUNGS: Auscultation of lungs reveals clear breath sounds bilaterally. There is no wheezing. ABDOMEN: Soft and nontender. There is no rebound or guarding. EXTREMITIES: Shows no leg edema or calf tenderness. There is no cyanosis or clubbing. SKIN: Shows no rashes. LABORATORY DATA: White blood cell count is 6.18 with a hemoglobin of 8.1, and a platelet count of 233. BUN to creatinine ratio is 20 to 1.53. The other electrolytes are within normal limits. IMPRESSION: 1. Multidrug-resistant Klebsiella urinary tract infection with associated bacteremia and sepsis, present on admission. 2. Dmeix-tf-enopaot systolic congestive heart failure. 3. Atrial fibrillation. 4. Cholelithiasis. 5. Axivy-ia-hoxauxa kidney injury. PLAN: 1. Continue current antibiotics. 2. Continue diuretics. 3. Continue cardiac regimen. 4. Possible transfer to [facility]. Silvestre Pham MD [facility]/CHAZ[facility] /[id number]
[2019-06-04] MEDS: WARFARIN SOD 5 MG TAB PO SCH (16:43)
[2019-06-04] MEDS: AMIKACIN SULFATE IV SCH (17:40)
[2019-06-04] MEDS: FUROSEMIDE 40 MG TAB PO SCH (17:40)
[2019-06-04] MEDS: CYCLOBENZAPRINE HCL 10 MG TAB PO PRN (21:10)
[2019-06-04] MEDS: CLONAZEPAM 0.5 MG TAB PO PRN (23:05)
[2019-06-05] VITALS (9 sets, daily range): BP systolic 118–164; BP diastolic 67–89
[2019-06-05] MEDS: FUROSEMIDE 40 MG TAB PO SCH ×2 (05:23→17:18)
[2019-06-05] MEDS: LEVOTHYROXINE SODIUM 100 MCG TAB PO SCH (05:23)
[2019-06-05 05:38] LABS: BASOPHILS # (AUTO) 0.1 (0.0-0.1); BASOPHILS % 1.1 % (0.0-1.0); EOSINOPHILS # (AUTO) 0.4 (0.0-0.4); EOSINOPHILS % 5.7 % (0.0-6.0); HEMATOCRIT 29.1 % (34.2-44.1); HEMOGLOBIN 8.4 g/dL (12.0-16.0); LYMPHOCYTES # (AUTO) 1.2 (1.0-3.2); LYMPHOCYTES % 18.7 % (18.0-39.1); MEAN CORPUSCULAR HEMOGLOBIN 22.6 pg (28-32); MEAN CORPUSCULAR HGB CONC 28.9 g/dL (31-35); MEAN CORPUSCULAR VOLUME 78.2 fL (81-99); MONOCYTES # (AUTO) 0.7 (0.2-0.8); MONOCYTES % 10.4 % (4.4-11.3); NEUTROPHILS # (AUTO) 4.2 (2.1-6.9); NEUTROPHILS % 63.3 % (38.7-80.0); PLATELET COUNT 234 x10e3/uL (140-360); RED BLOOD COUNT 3.72 x10e6/uL (3.6-5.1); RED CELL DISTRIBUTION WIDTH 19.9 % (11.7-14.4)
[2019-06-05 05:50] LABS: INR 2.74; PROTHROMBIN TIME 31.1 seconds (11.9-14.5)
[2019-06-05 05:54] LABS: ANION GAP 12.8 mmol/L (8-16); CALCIUM 9.3 mg/dL (8.4-10.2); CREATININE, SERUM 1.65 mg/dL (0.57-1.11); POTASSIUM 3.8 mmol/L (3.5-5.1)
[2019-06-05] MEDS: IPRATROPIUM BROMIDE 0.02% 2.5 ML NEB NEB SCH ×5 (06:55→18:30)
[2019-06-05] MEDS: DULOXETINE HCL 30 MG DELAYED RELEASE PO SCH (08:21)
[2019-06-05] MEDS: AMIODARONE HCL 200 MG TAB PO SCH ×2 (08:21→21:33)
[2019-06-05] MEDS: FAMOTIDINE 20 MG TAB PO SCH (08:21)
[2019-06-05] MEDS: LACTOBACILLUS ACIDOPHILUS CAPSULE PO SCH ×2 (08:22→17:14)
[2019-06-05] MEDS: BALSAM PERU/CASTOR OIL 60 GM OINT...G. TP SCH (08:22)
[2019-06-05] MEDS: NYSTATIN 15 GM POWDER UD BTL TOP SCH (08:22)
[2019-06-05] MEDS: METOPROLOL SUCCINATE 25 MG TAB XL PO SCH (08:22)
[2019-06-05] MEDS: CHOLESTYRAMINE 4 GM PACKET PO SCH (08:22)
[2019-06-05 10:59] LABS: ANISOCYTOSIS SLIGHT; HYPOCHROMASIA SLIGHT; MICROCYTOSIS SLIG
[2019-06-05 11:00] LABS: PLATELET ESTIMATE ADEQUATE; PLATELET MORPHOLOGY COMMENT FEW GIANT
--- NOTE | 2019-06-05 11:20 | Progress Note ---
DATE: 06/05/2019 Cardiology Progress Note SUBJECTIVE: Denies any chest pain or shortness of breath. OBJECTIVE: VITAL SIGNS: Temperature 98.6, heart rate of 124, respiratory rate 18, blood pressure 151/68, O2 saturation 98% on 2 L/minute nasal cannula. GENERAL: In no acute distress, alert. NECK: No JVD. CHEST: Clear to auscultation. CARDIOVASCULAR: Irregularly irregular rate and rhythm. Normal S1 and S2. No S3 or S4. ABDOMEN: Soft. Bowel sounds positive. EXTREMITIES: No edema. Left heel wound covered with dressings. CARDIOVASCULAR MEDICATIONS: Reviewed metoprolol succinate 25 mg b.i.d., amiodarone 200 mg b.i.d., furosemide 40 mg b.i.d. p.o., and warfarin 5 mg daily. STUDIES: Reviewed. White blood cell 6.6, hemoglobin 8.4, platelets 234. INR 2.7, creatinine 1.6, potassium 3.8, sodium 139, bicarbonate 35. ASSESSMENT: A 63-year-old woman with atrial fibrillation, hypertension, chronic diastolic heart failure with acute exacerbation, status post pneumonia, sepsis, anemia. RECOMMENDATIONS: 1. I will titrate metoprolol to 50 mg b.i.d. with holding parameters. 2. Continue amiodarone at current dose. 3. Continue warfarin at current dose. 4. Continue diuretic at current dose. 5. On telemetry, atrial fibrillation with RVR. Medication adjustments as a result of this. MD BARB Sewell/NARGIS /[id number]
[2019-06-05] MEDS ORDERED: CHOLESTYRAMINE 4 GM PACKET PO PRN (11:30)
[2019-06-05] MEDS ORDERED: METOPROLOL TARTRATE 25 MG TAB PO NR (12:00)
--- NOTE | 2019-06-05 12:31 | Diagnostic Imaging Report ---
TECHNIQUE: Frontal view of the chest. INDICATION: ^SOB ^[id number] ^1200 COMPARISON: Prior day. IMPRESSION: Lines and hardware: Stable. Heart and mediastinum: Stable. Lungs and pleura: Stable small right patchy airspace opacity and minimal left basilar atelectasis. Trace right pleural effusion. No pneumothorax. Soft tissues and bones: No acute abnormality. Signed by: Anival Carter MD on 06/05/2019 12:27 PM
--- NOTE | 2019-06-05 15:06 | Progress Note ---
DATE: 06/05/2019 SUBJECTIVE: The patient noted some increased dyspnea this morning. She had a repeat chest x-ray done. PHYSICAL EXAMINATION: VITAL SIGNS: The patient is afebrile. The blood pressure is 138/89 and the saturation is 93% on 2 L. HEENT: Shows no facial swelling or erythema. CARDIAC: Reveals regular rate and rhythm with normal S1 and S2. LUNGS: Auscultation of lungs reveals clear breath sounds bilaterally. There is no wheezing. ABDOMEN: Soft and nontender. There is no rebound or guarding. EXTREMITIES: Shows no leg edema or calf tenderness. There is no cyanosis or clubbing. SKIN: Shows no rashes. NEUROLOGICAL: Shows no focal abnormalities. LABORATORY DATA: BUN to creatinine ratio is 21 to 1.65. The other electrolytes are within normal limits. Hemoglobin is 8.4 and the white blood cell count is 6.6. The platelet count is 234. IMPRESSION: 1. Multidrug-resistant Klebsiella urinary tract infection with associated bacteremia and sepsis, present on admission. 2. Atrial fibrillation. 3. Ftlia-ur-bzwanoy renal failure. 4. Cholelithiasis. 5. Yyrpt-da-qqedkfq systolic congestive heart failure. PLAN: 1. Continue current antibiotics. 2. Continue current cardiac regimen. 3. Possible transfer to [facility]. MD JENNIFFER Daly/NARGIS /[id number]
[2019-06-05] MEDS: WARFARIN SOD 5 MG TAB PO SCH (17:13)
[2019-06-05] MEDS: CYCLOBENZAPRINE HCL 10 MG TAB PO PRN (18:03)
[2019-06-05] MEDS: AMIKACIN SULFATE IV SCH (18:03)
[2019-06-05] MEDS: SODIUM CHLORIDE 0.9% IV SCH (18:03)
[2019-06-05] MEDS: METOPROLOL SUCCINATE 50 MG TAB XL PO SCH (21:33)
[2019-06-05] MEDS: TRAZODONE HCL 50 MG TAB PO SCH (21:33)
[2019-06-06] VITALS (8 sets, daily range): BP systolic 112–131; BP diastolic 69–90
[2019-06-06 05:57] LABS: BASOPHILS # (AUTO) 0.1 (0.0-0.1); BASOPHILS % 0.9 % (0.0-1.0); EOSINOPHILS # (AUTO) 0.3 (0.0-0.4); EOSINOPHILS % 4.1 % (0.0-6.0); HEMATOCRIT 28.5 % (34.2-44.1); HEMOGLOBIN 8.4 g/dL (12.0-16.0); LYMPHOCYTES # (AUTO) 1.3 (1.0-3.2); LYMPHOCYTES % 19.7 % (18.0-39.1); MEAN CORPUSCULAR HEMOGLOBIN 22.9 pg (28-32); MEAN CORPUSCULAR HGB CONC 29.5 g/dL (31-35); MEAN CORPUSCULAR VOLUME 77.7 fL (81-99); MONOCYTES # (AUTO) 0.6 (0.2-0.8); MONOCYTES % 9.7 % (4.4-11.3); NEUTROPHILS # (AUTO) 4.1 (2.1-6.9); NEUTROPHILS % 65.1 % (38.7-80.0); PLATELET COUNT 226 x10e3/uL (140-360); RED BLOOD COUNT 3.67 x10e6/uL (3.6-5.1); RED CELL DISTRIBUTION WIDTH 19.9 % (11.7-14.4)
[2019-06-06 06:10] LABS: INR 2.67; PROTHROMBIN TIME 30.5 seconds (11.9-14.5)
[2019-06-06 06:13] LABS: CALCIUM 9.4 mg/dL (8.4-10.2); CREATININE, SERUM 1.65 mg/dL (0.57-1.11)
[2019-06-06] MEDS: FUROSEMIDE 40 MG TAB PO SCH ×2 (06:14→18:34)
[2019-06-06] MEDS: LEVOTHYROXINE SODIUM 100 MCG TAB PO SCH (06:14)
[2019-06-06] MEDS: IPRATROPIUM BROMIDE 0.02% 2.5 ML NEB NEB SCH ×4 (07:25→20:45)
[2019-06-06] MEDS: FAMOTIDINE 20 MG TAB PO SCH (09:25)
[2019-06-06] MEDS: AMIODARONE HCL 200 MG TAB PO SCH ×2 (09:25→21:50)
[2019-06-06] MEDS: DULOXETINE HCL 30 MG DELAYED RELEASE PO SCH (09:25)
[2019-06-06] MEDS: METOPROLOL SUCCINATE 50 MG TAB XL PO SCH ×2 (09:25→21:50)
[2019-06-06] MEDS: LACTOBACILLUS ACIDOPHILUS CAPSULE PO SCH ×2 (09:25→17:10)
--- NOTE | 2019-06-06 09:28 | Progress Note ---
DATE: 06/05/2019 Psychiatric Progress Note SUBJECTIVE: The patient is evaluated and events noted. The patient is in the room. She is alert, awake, and oriented to situation. She is calm and cooperative. She reports feeling intermittently anxious and depressed, but denies any suicidal or homicidal ideation. She denies any hallucination. She reports poor sleep. She denies any side effects from medication. ASSESSMENT: 1. Major depressive disorder, recurrent, moderate. 2. Generalized anxiety disorder. PLAN: 1. Continue with p.r.n. Klonopin. 2. Add Trazodone 50 mg p.o. at bedtime. 3. Monitor for mood. 4. Supportive therapy. Dictated by Sowmya Boyd PA-C Javi Norwood MD [facility]/MODL /[id number]
[2019-06-06] MEDS: BALSAM PERU/CASTOR OIL 60 GM OINT...G. TP SCH (09:29)
--- NOTE | 2019-06-06 12:23 | Progress Note ---
DATE: 06/06/2019 Cardiology Progress Note SUBJECTIVE: Denies any chest pain or shortness of breath. OBJECTIVE: VITAL SIGNS: Temperature 96.4, heart rate 100-125, blood pressure 117/69, respiratory rate 20, and O2 saturation 93%. GENERAL: No acute distress. Alert. NECK: No JVD. CHEST: Clear to auscultation. CARDIOVASCULAR: Irregularly irregular rate and rhythm. Normal S1 and S2. ABDOMEN: Soft. Bowel sounds positive. EXTREMITIES: No edema. CARDIOVASCULAR MEDICATIONS: Reviewed. 1. Warfarin 7.5 mg daily. 2. Furosemide 40 mg b.i.d. 3. Metoprolol succinate 50 mg every 12 hours. 4. Amiodarone 200 mg every 12 hours. STUDIES: Reviewed. Creatinine 1.6, hemoglobin 8.4, and platelets 226. INR 2.6. AST 18, ALT 7, and alkaline phosphatase 85. ASSESSMENT AND PLAN: A 63-year-old woman with atrial fibrillation, pneumonia, acute on chronic diastolic heart failure, left knee wound, hypertension, morbid obesity, deconditioning, anemia, renal failure. Recommend continue current cardiovascular medications. INR is at goal. Metoprolol has been uptitrated. Continue amiodarone at current dose. MD BARB Sewell/NARGIS /[id number]
[2019-06-06] MEDS: WARFARIN SOD 5 MG TAB PO SCH (17:10)
--- NOTE | 2019-06-06 17:10 | Progress Note ---
DATE: 06/06/2019 SUBJECTIVE: The patient is afebrile. She still has some tachycardia. PHYSICAL EXAMINATION: VITAL SIGNS: Stable. The blood pressure is 112/74 and saturation is 94% on 2 L. HEENT: Shows no facial swelling or erythema. CARDIAC: Reveals regular rate and rhythm with normal S1 and S2. LUNGS: Auscultation of lungs reveals clear breath sounds bilaterally. There is no wheezing. ABDOMEN: Soft and nontender. There is no rebound or guarding. IMPRESSION: 1. Multidrug-resistant Klebsiella urinary tract infection with associated bacteremia and sepsis, present on admission. 2. Atrial fibrillation. 3. Xyqih-rm-xsnaqon renal failure. 4. Cholelithiasis. PLAN: 1. Continue current antibiotics. 2. Continue current cardiac regimen. 3. The patient will complete her therapy here at the hospital and eventually go home on home health. MD JENNIFFER Daly/NARGIS /[id number]
[2019-06-06] MEDS: CYCLOBENZAPRINE HCL 10 MG TAB PO PRN (17:11)
[2019-06-06] MEDS: SODIUM CHLORIDE 0.9% IV SCH (18:34)
[2019-06-06] MEDS: CLONAZEPAM 0.5 MG TAB PO PRN (18:34)
[2019-06-06] MEDS: AMIKACIN SULFATE IV SCH (18:34)
[2019-06-06] MEDS: TRAZODONE HCL 50 MG TAB PO SCH (21:50)
--- NOTE | 2019-06-06 23:36 | Progress Note ---
DATE: 06/06/2019 Psychiatric Progress Note SUBJECTIVE: The patient evaluated and events noted. The patient is in the room. She is alert, awake, and oriented to situation. She reports feeling intermittently anxious due to her hospitalization. She denies having any depression. Denies any hallucinations or suicidal ideation. She reports increased sleep last night. She reports getting Klonopin and it helps her. She denies any side effects to medication. ASSESSMENT: 1. Major depressive disorder, recurrent, moderate. 2. Generalized anxiety disorder. PLAN: 1. Continue with p.r.n. Klonopin. 2. Continue with trazodone 50 mg p.o. at bedtime. 3. Continue with Cymbalta 30 mg p.o. daily. 4. Monitor for mood. 5. Supportive therapy. Dictated by Sowmya Boyd PA-C MD SULY [facility]/NARGIS /[id number]
[2019-06-07] VITALS (8 sets, daily range): BP systolic 102–120; BP diastolic 61–74
[2019-06-07 06:01] LABS: ANION GAP 14.1 mmol/L (8-16); CALCIUM 9.2 mg/dL (8.4-10.2); CREATININE, SERUM 1.74 mg/dL (0.57-1.11); POTASSIUM 4.1 mmol/L (3.5-5.1)
[2019-06-07] MEDS: LEVOTHYROXINE SODIUM 100 MCG TAB PO SCH (06:15)
[2019-06-07] MEDS: FUROSEMIDE 40 MG TAB PO SCH (06:15)
[2019-06-07] MEDS: IPRATROPIUM BROMIDE 0.02% 2.5 ML NEB NEB SCH ×4 (07:00→20:30)
[2019-06-07] MEDS: LACTOBACILLUS ACIDOPHILUS CAPSULE PO SCH ×2 (09:26→16:59)
[2019-06-07] MEDS: AMIODARONE HCL 200 MG TAB PO SCH ×2 (09:26→16:58)
[2019-06-07] MEDS: DULOXETINE HCL 30 MG DELAYED RELEASE PO SCH (09:26)
[2019-06-07] MEDS: FAMOTIDINE 20 MG TAB PO SCH (09:26)
[2019-06-07] MEDS: METOPROLOL SUCCINATE 50 MG TAB XL PO SCH (09:27)
[2019-06-07] MEDS: BALSAM PERU/CASTOR OIL 60 GM OINT...G. TP SCH (09:27)
--- NOTE | 2019-06-07 12:07 | Progress Note ---
DATE: 06/07/2019 Cardiology Progress Note SUBJECTIVE: No complaints. OBJECTIVE: VITAL SIGNS: Temperature 98.3, heart rate 107 to 130, respiratory rate 18, blood pressure 105/68, and O2 saturation 93% on nasal cannula. GENERAL: No acute distress. Alert. NECK: No JVD. CHEST: Clear to auscultation. CARDIOVASCULAR: Irregularly irregular rate and rhythm. Normal S1 and S2. ABDOMEN: Soft. Bowel sounds positive. EXTREMITIES: No edema. CARDIOVASCULAR MEDICATIONS: Metoprolol succinate 50 mg every 12 hours, furosemide 40 mg b.i.d., warfarin 7.5 mg daily, and amiodarone 200 mg b.i.d. STUDIES: Reviewed. Creatinine 1.7, sodium 140, potassium 4.1, chloride of 98, bicarbonate 32, BUN 27, glucose 82, and calcium 9.2. ASSESSMENT AND PLAN: A 63-year-old woman with atrial fibrillation with rapid ventricular response, exnsl-ly-cjrozqn diastolic heart failure, pneumonia, and hypertension. RECOMMEND: 1. Up titrate amiodarone to 200 mg every 12 hours. Increase metoprolol to 50 mg in the morning and 75 mg at bedtime and assess response on blood pressure tolerance. 2. Continue warfarin at current dose for now. 3. Consider decrease in diuretic to once daily and monitor volume status if okay with other treating physicians. MD ThorpeV/CHAZL /[id number]
--- NOTE | 2019-06-07 16:45 | Progress Note ---
DATE: 06/08/2019 SUBJECTIVE: The patient has no new complaints. She does not have any palpitations. She is not having any cough or chest pain. PHYSICAL EXAMINATION: VITAL SIGNS: The patient is afebrile. The vital signs are stable. HEENT: Shows no facial swelling or erythema. CARDIAC: Reveals regular rate and rhythm with normal S1, S2. LUNGS: Auscultation of lungs reveal decreased breath sounds at the bases. There is no wheezing. ABDOMEN: Soft, nontender. There is no rebound or guarding. EXTREMITIES: Show no leg edema or calf tenderness. There is no cyanosis or clubbing. SKIN: Shows no rashes. IMPRESSION: 1. Multidrug-resistant Klebsiella urinary tract infection with associated bacteremia and sepsis, present on admission. 2. Atrial fibrillation. 3. Acute on chronic renal failure. 4. Cholelithiasis. PLAN: 1. Continue current antibiotics. 2. Continue current cardiac regimen. 3. Probable discharge home with home health early next week. Silvestre Pham MD [facility]/NARGIS /[id number]
[2019-06-07] MEDS: WARFARIN SOD 5 MG TAB PO SCH (16:58)
[2019-06-07] MEDS: METOPROLOL TARTRATE 50 MG TAB PO SCH (16:59)
[2019-06-07] MEDS: AMIKACIN SULFATE IV SCH (17:40)
[2019-06-07] MEDS: SODIUM CHLORIDE 0.9% IV SCH (17:40)
[2019-06-07] MEDS: TRAZODONE HCL 50 MG TAB PO SCH (21:00)
[2019-06-08] VITALS: BP 119/74
[2019-06-08 04:00] VITALS: BP 119/71
[2019-06-08] MEDS: LEVOTHYROXINE SODIUM 100 MCG TAB PO SCH (05:44)
[2019-06-08 06:01] LABS: INR 2.8; PROTHROMBIN TIME 31.7 seconds (11.9-14.5)
[2019-06-08 06:08] LABS: ANION GAP 12.2 mmol/L (8-16); CALCIUM 9.4 mg/dL (8.4-10.2); CREATININE, SERUM 1.75 mg/dL (0.57-1.11); POTASSIUM 4.2 mmol/L (3.5-5.1)
[2019-06-08] MEDS: IPRATROPIUM BROMIDE 0.02% 2.5 ML NEB NEB SCH ×4 (06:20→20:45)
[2019-06-08 08:00] VITALS: BP 126/81
[2019-06-08] MEDS: LACTOBACILLUS ACIDOPHILUS CAPSULE PO SCH ×2 (08:19→17:33)
[2019-06-08] MEDS: DULOXETINE HCL 30 MG DELAYED RELEASE PO SCH (08:19)
[2019-06-08] MEDS: FAMOTIDINE 20 MG TAB PO SCH (08:19)
[2019-06-08] MEDS: AMIODARONE HCL 200 MG TAB PO SCH ×2 (08:19→17:32)
[2019-06-08 08:20] VITALS: BP 119/71
[2019-06-08] MEDS: METOPROLOL TARTRATE 50 MG TAB PO SCH ×2 (09:30→17:32)
[2019-06-08] MEDS: CYCLOBENZAPRINE HCL 10 MG TAB PO PRN ×2 (10:40→20:53)
[2019-06-08 11:52] VITALS: BP 110/79
--- NOTE | 2019-06-08 12:32 | Progress Note ---
DATE: 06/08/2019 Cardiology Progress Note SUBJECTIVE: Denies any chest pain or shortness of breath. Heart rate is better controlled on telemetry. OBJECTIVE: VITAL SIGNS: Temperature 98.8, heart rate 97, respiratory rate 20, blood pressure 126/81, O2 saturation 96% on room air. GENERAL: No acute distress. Alert. NECK: No JVD. CHEST: Clear to auscultation. CARDIOVASCULAR: Irregular rate and rhythm. Normal S1, S2. ABDOMEN: Soft. Bowel sounds positive. EXTREMITIES: No edema. MEDICATIONS: Cardiovascular medications reviewed. Amiodarone 400 mg b.i.d., metoprolol tartrate 75 mg in the evening and 50 mg q.a.m., warfarin 7.5 mg daily, and furosemide held. STUDIES: White blood cell 6.3, hemoglobin 8.4, platelets 226, creatinine 1.7, potassium 4.2. INR 2.8. ASSESSMENT AND PLAN: Acute on chronic diastolic heart failure, pneumonia, atrial fibrillation, morbid obesity, left knee wound, anemia. Recommend, continue current cardiovascular medications. Rate control optimized. Dylan Ventura MD [facility]/MODL /[id number]
--- NOTE | 2019-06-08 13:28 | Progress Note ---
DATE: 06/08/2019 SUBJECTIVE: The patient is still receiving antibiotics and awaiting potential transfer or discharge. PHYSICAL EXAMINATION: VITAL SIGNS: The pulse is now 88 and the blood pressure is 110/79. Saturation is 99% on 2 L. HEENT: Shows no facial swelling or erythema. CARDIAC: Reveals regular rate and rhythm with normal S1 and S2. LUNGS: Auscultation of lungs reveals clear breath sounds bilaterally. There is no wheezing. ABDOMEN: Soft and nontender. There is no rebound or guarding. EXTREMITIES: Shows no leg edema or calf tenderness. There is no cyanosis or clubbing. SKIN: Shows no rashes. NEUROLOGICAL: Shows no focal abnormalities. IMPRESSION: 1. Dtlnl-cc-ycnwplm diastolic heart failure. 2. Atrial fibrillation. 3. Multidrug-resistant Klebsiella urinary tract infection. 4. Cholelithiasis. PLAN: 1. Complete antibiotics. 2. Continue current cardiac regimen. 3. Out of bed as tolerated. 4. Physical therapy. MD JENNIFFER Daly/NARGIS /[id number]
[2019-06-08 15:31] VITALS: BP 118/84
[2019-06-08] MEDS: WARFARIN SOD 5 MG TAB PO SCH (17:32)
[2019-06-08] MEDS: BALSAM PERU/CASTOR OIL 60 GM OINT...G. TP SCH (17:33)
[2019-06-08] MEDS: SODIUM CHLORIDE 0.9% IV SCH (18:43)
[2019-06-08] MEDS: AMIKACIN SULFATE IV SCH (18:43)
[2019-06-08] MEDS: TRAZODONE HCL 50 MG TAB PO SCH (20:53)
[2019-06-09] VITALS (8 sets, daily range): BP systolic 98–138; BP diastolic 60–76
[2019-06-09] MEDS: LEVOTHYROXINE SODIUM 100 MCG TAB PO SCH (06:00)
[2019-06-09] MEDS: IPRATROPIUM BROMIDE 0.02% 2.5 ML NEB NEB SCH ×6 (07:00→19:50)
[2019-06-09] MEDS: BALSAM PERU/CASTOR OIL 60 GM OINT...G. TP SCH (09:00)
[2019-06-09] MEDS: AMIODARONE HCL 200 MG TAB PO SCH ×2 (09:00→17:02)
[2019-06-09] MEDS: DULOXETINE HCL 30 MG DELAYED RELEASE PO SCH (09:00)
[2019-06-09] MEDS: FAMOTIDINE 20 MG TAB PO SCH (09:00)
[2019-06-09] MEDS: LACTOBACILLUS ACIDOPHILUS CAPSULE PO SCH ×2 (09:00→17:03)
[2019-06-09] MEDS: METOPROLOL TARTRATE 50 MG TAB PO SCH ×2 (09:00→17:03)
--- NOTE | 2019-06-09 13:37 | Progress Note ---
DATE: 06/09/2019 SUBJECTIVE: The patient has no palpitations. She has no chest pain. She is not coughing. She has no fevers. PHYSICAL EXAMINATION: VITAL SIGNS: The patient is afebrile. Blood pressure is 98/60 and the saturation is 99% on 2 L. HEENT: Shows no facial swelling or erythema. CARDIAC: Reveals regular rate and rhythm with a normal S1, S2. LUNGS: Auscultation of lungs reveals crackles at the bases. There is no wheezing. ABDOMEN: Soft, nontender. There is no rebound or guarding. EXTREMITIES: Show no leg edema or calf tenderness. There is no cyanosis or clubbing. SKIN: Shows no rashes. NEUROLOGIC: Shows no focal abnormalities. IMPRESSION: 1. Multidrug-resistant Klebsiella urinary tract infection. 2. Atrial fibrillation. 3. Gdfye-et-yxzkeyb diastolic heart failure. 4. Cholelithiasis. PLAN: 1. Continue current cardiac regimen. 2. Complete antibiotics. 3. Physical therapy. 4. Arrange for home care. Silvestre Pham MD [facility]AZ[facility] /[id number]
[2019-06-09] MEDS: CYCLOBENZAPRINE HCL 10 MG TAB PO PRN (15:42)
[2019-06-09] MEDS: WARFARIN SOD 5 MG TAB PO SCH (17:03)
--- NOTE | 2019-06-09 17:33 | Progress Note ---
DATE: 06/09/2019 Cardiology Progress Note SUBJECTIVE: No complaints today. OBJECTIVE: VITAL SIGNS: Temperature 97 degrees, heart rate 88, blood pressure 98/60, respiratory rate 18, and O2 saturation 96%. GENERAL: No acute distress. CHEST: Clear to auscultation. CARDIOVASCULAR: Irregular rate and rhythm. ABDOMEN: Soft. EXTREMITIES: No edema. CARDIOVASCULAR MEDICATIONS: Reviewed. STUDIES: Reviewed. Creatinine 1.7, hemoglobin 8.4, and platelets 226. INR 2.8. ASSESSMENT AND PLAN: 1. Atrial fibrillation. 2. Chronic diastolic heart failure. 3. Chronic renal failure with acute exacerbation. 4. Pneumonia. 5. Morbid obesity. Recommend continue current cardiovascular medications. MD BARB Sewell/[facility] /[id number]
[2019-06-09] MEDS: SODIUM CHLORIDE 0.9% IV SCH (19:08)
[2019-06-09] MEDS: AMIKACIN SULFATE IV SCH (19:08)
[2019-06-09] MEDS: TRAZODONE HCL 50 MG TAB PO SCH (21:34)
[2019-06-09] MEDS: CLONAZEPAM 0.5 MG TAB PO PRN (21:35)
[2019-06-10] VITALS (8 sets, daily range): BP systolic 109–136; BP diastolic 74–91
[2019-06-10] MEDS: LEVOTHYROXINE SODIUM 100 MCG TAB PO SCH (06:24)
[2019-06-10 06:32] LABS: BASOPHILS # (AUTO) 0.1 (0.0-0.1); BASOPHILS % 0.8 % (0.0-1.0); EOSINOPHILS # (AUTO) 0.2 (0.0-0.4); EOSINOPHILS % 2.4 % (0.0-6.0); HEMATOCRIT 26.7 % (34.2-44.1); HEMOGLOBIN 7.6 g/dL (12.0-16.0); LYMPHOCYTES % 15.1 % (18.0-39.1); MEAN CORPUSCULAR HEMOGLOBIN 22.6 pg (28-32); MEAN CORPUSCULAR HGB CONC 28.5 g/dL (31-35); MEAN CORPUSCULAR VOLUME 79.5 fL (81-99); MONOCYTES # (AUTO) 0.6 (0.2-0.8); MONOCYTES % 9.4 % (4.4-11.3); NEUTROPHILS # (AUTO) 4.8 (2.1-6.9); NEUTROPHILS % 71.8 % (38.7-80.0); PLATELET COUNT 166 x10e3/uL (140-360); RED BLOOD COUNT 3.36 x10e6/uL (3.6-5.1); RED CELL DISTRIBUTION WIDTH 20.2 % (11.7-14.4)
[2019-06-10 06:41] LABS: INR 3.26; PROTHROMBIN TIME 35.8 seconds (11.9-14.5)
[2019-06-10 06:51] LABS: ANION GAP 12.8 mmol/L (8-16); CALCIUM 9.6 mg/dL (8.4-10.2); CREATININE, SERUM 1.99 mg/dL (0.57-1.11); POTASSIUM 3.8 mmol/L (3.5-5.1)
[2019-06-10] MEDS: IPRATROPIUM BROMIDE 0.02% 2.5 ML NEB NEB SCH ×4 (07:20→20:30)
[2019-06-10] MEDS: FAMOTIDINE 20 MG TAB PO SCH (09:23)
[2019-06-10] MEDS: AMIODARONE HCL 200 MG TAB PO SCH ×2 (09:23→17:11)
[2019-06-10] MEDS: METOPROLOL TARTRATE 50 MG TAB PO SCH ×2 (09:23→17:12)
[2019-06-10] MEDS: DULOXETINE HCL 30 MG DELAYED RELEASE PO SCH (09:23)
[2019-06-10] MEDS: BALSAM PERU/CASTOR OIL 60 GM OINT...G. TP SCH (09:23)
[2019-06-10] MEDS: LACTOBACILLUS ACIDOPHILUS CAPSULE PO SCH ×2 (09:23→17:11)
[2019-06-10 10:14] LABS: HYPOCHROMASIA SLIGHT
[2019-06-10] MEDS: SODIUM CHLORIDE 0.9% IV SCH (17:12)
[2019-06-10] MEDS: AMIKACIN SULFATE IV SCH (17:12)
--- NOTE | 2019-06-10 21:17 | Progress Note ---
DATE: 06/10/2019 Cardiology Progress Note SUBJECTIVE: Feels fatigued. Denies chest pain or shortness of breath. OBJECTIVE: VITAL SIGNS: Temperature 97.7, heart rate 99, blood pressure 132/79, respiratory rate 20, O2 saturation 95%. GENERAL: In no acute distress, alert. NECK: No JVD. CHEST: Clear to auscultation. CARDIOVASCULAR: Irregularly irregular rate and rhythm. Normal S1, S2. No S3 or S4. Systolic ejection murmur 1/6. ABDOMEN: Soft. Bowel sounds positive. EXTREMITIES: Trace edema. Left knee wound covered with dressings. NEURO: No gross deficit observed. CARDIOVASCULAR MEDICATIONS: Metoprolol tartrate 75 mg at bedtime, 50 mg q.a.m., amiodarone 400 mg b.i.d., warfarin to be discontinued today, diuretics discontinued. LABORATORY DATA: Sodium 139, potassium 3.8, chloride 101, bicarbonate 29, BUN 34, creatinine 1.99, glucose 90. White blood cells 6.6, hemoglobin 7.6, platelets 166. INR 3.2. AST 28, ALT 7. ASSESSMENT AND PLAN: A 63-year-old woman with. 1. Acute on chronic diastolic heart failure, pneumonia, atrial fibrillation, anemia, acute on chronic renal failure. Recommend discontinue warfarin. 2. Continue amiodarone and metoprolol at current dose. 3. Discontinue diuretic given increasing creatinine trend. 4. Monitor H and H given 7.6 hemoglobin. No gross bleeding described. Dylan Ventura MD [facility] /[id number]
[2019-06-10] MEDS: TRAZODONE HCL 50 MG TAB PO SCH (22:30)
[2019-06-10] MEDS: CLONAZEPAM 0.5 MG TAB PO PRN (22:30)
[2019-06-10] MEDS: CYCLOBENZAPRINE HCL 10 MG TAB PO PRN (23:12)
[2019-06-11] VITALS (8 sets, daily range): BP systolic 101–133; BP diastolic 66–78
[2019-06-11] MEDS: LEVOTHYROXINE SODIUM 100 MCG TAB PO SCH (05:12)
[2019-06-11 05:36] LABS: BASOPHILS # (AUTO) 0.1 (0.0-0.1); BASOPHILS % 0.9 % (0.0-1.0); EOSINOPHILS # (AUTO) 0.2 (0.0-0.4); LYMPHOCYTES # (AUTO) 1.1 (1.0-3.2); LYMPHOCYTES % 14.5 % (18.0-39.1); MEAN CORPUSCULAR HEMOGLOBIN 23.3 pg (28-32); MEAN CORPUSCULAR HGB CONC 29.6 g/dL (31-35); MEAN CORPUSCULAR VOLUME 78.5 fL (81-99); MONOCYTES # (AUTO) 0.8 (0.2-0.8); MONOCYTES % 10.8 % (4.4-11.3); NEUTROPHILS # (AUTO) 5.3 (2.1-6.9); NEUTROPHILS % 71.4 % (38.7-80.0); PLATELET COUNT 171 x10e3/uL (140-360); RED BLOOD COUNT 3.44 x10e6/uL (3.6-5.1); RED CELL DISTRIBUTION WIDTH 20.3 % (11.7-14.4)
[2019-06-11 05:43] LABS: INR 3.05; PROTHROMBIN TIME 33.9 seconds (11.9-14.5)
[2019-06-11 05:48] LABS: ANION GAP 13.8 mmol/L (8-16); CALCIUM 9.6 mg/dL (8.4-10.2); CREATININE, SERUM 2.03 mg/dL (0.57-1.11); POTASSIUM 3.8 mmol/L (3.5-5.1)
[2019-06-11] MEDS: IPRATROPIUM BROMIDE 0.02% 2.5 ML NEB NEB SCH ×4 (07:30→20:15)
--- NOTE | 2019-06-11 08:54 | Progress Note ---
DATE: 06/11/2019 SUBJECTIVE: The patient is afebrile. She has some shoulder pain. PHYSICAL EXAMINATION: VITAL SIGNS: Stable. HEENT: Shows no facial swelling or erythema. CARDIAC: Reveals regular rate and rhythm with a normal S1 and S2. LUNGS: Auscultation of lungs reveals decreased breath sounds at the bases. ABDOMEN: Soft and nontender. There is no rebound or guarding. EXTREMITIES: Show no leg edema or calf tenderness. There is no cyanosis or clubbing. SKIN: Shows no rashes. NEUROLOGICAL: Shows no focal abnormalities. IMPRESSION: 1. Acute on chronic diastolic heart failure. 2. Atrial fibrillation. 3. Multidrug-resistant Klebsiella urinary tract infection. 4. Cholelithiasis. PLAN: 1. Complete antibiotics. 2. Continue current cardiac regimen. 3. Making arrangements for discharge after completion of antibiotics tomorrow. MD JENNIFFER Daly/[facility]ARG[facility] /[id number]
[2019-06-11] MEDS: BALSAM PERU/CASTOR OIL 60 GM OINT...G. TP SCH (09:00)
[2019-06-11] MEDS: FAMOTIDINE 20 MG TAB PO SCH (09:52)
[2019-06-11] MEDS: LACTOBACILLUS ACIDOPHILUS CAPSULE PO SCH ×2 (09:52→18:19)
[2019-06-11] MEDS: AMIODARONE HCL 200 MG TAB PO SCH ×2 (09:52→18:19)
[2019-06-11] MEDS: METOPROLOL TARTRATE 50 MG TAB PO SCH ×2 (09:52→18:21)
[2019-06-11] MEDS: DULOXETINE HCL 30 MG DELAYED RELEASE PO SCH (09:52)
--- NOTE | 2019-06-11 11:54 | Progress Note ---
DATE: 06/11/2019 Cardiology Progress Note SUBJECTIVE: Denies chest pain or shortness of breath. Has no new complaints today. OBJECTIVE: VITAL SIGNS: Temperature 98.2, heart rate 78, respiratory rate 16, blood pressure 101/71, and O2 saturation 99% on room air. GENERAL: No acute distress. Alert. NECK: No JVD. CHEST: Clear to auscultation. CARDIOVASCULAR: Irregular rate and rhythm. Normal S1 and S2. No S3 or S4. Systolic ejection murmur /6. ABDOMEN: Soft. Bowel sounds positive. EXTREMITIES: No edema. SKIN: Left knee wound covered with dressings. VASCULAR: No edema. STUDIES: Reviewed. White blood cells 7.8, hemoglobin 8, and platelets 171. Creatinine is 2.03. INR 3.05, trending down. CARDIOVASCULAR MEDICATIONS: 1. Amiodarone 400 mg b.i.d. 2. Metoprolol 50 mg in the morning and 75 mg in the evening. 3. Warfarin 5 mg, currently on hold. ASSESSMENT: 1. Paroxysmal atrial fibrillation. 2. Acute on chronic diastolic heart failure. 3. Hypertension. 4. Pneumonia. RECOMMENDATIONS: 1. Decrease amiodarone to 200 mg b.i.d. 2. Resume warfarin 5 mg daily. Given warfarin and amiodarone interaction, expect less warfarin effect with decreasing amiodarone dosing, so continue at 5 mg daily warfarin. 3. Continue rest of cardiovascular medications, particularly beta sammy. 4. Diuretics p.r.n. 5. Monitor volume status. MD BARB Sewell/NARGIS /[id number]
[2019-06-11] MEDS: CYCLOBENZAPRINE HCL 10 MG TAB PO PRN (12:11)
[2019-06-11] MEDS: WARFARIN SOD 5 MG TAB PO SCH (18:20)
[2019-06-11] MEDS ORDERED: SODIUM CHLORIDE 0.9% 250ML 250 ML ONE (18:29)
[2019-06-11] MEDS: SODIUM CHLORIDE 0.9% IV SCH (18:31)
[2019-06-11] MEDS: AMIKACIN SULFATE IV SCH (18:31)
[2019-06-11] MEDS: TRAZODONE HCL 50 MG TAB PO SCH (21:22)
[2019-06-12] VITALS: BP 157/76
[2019-06-12] MEDS: CLONAZEPAM 0.5 MG TAB PO PRN (00:08)
[2019-06-12 04:00] VITALS: BP 138/70
--- NOTE | 2019-06-12 05:27 | Progress Note ---
DATE: 06/11/2019 Psychiatric Progress Note SUBJECTIVE: The patient is evaluated and events noted. The patient is in the room. She reports feeling depressed due to her health. She reported anxiety. She denies any sleep or appetite issues. She denies any suicidal or homicidal ideation. She denies any hallucination. She denies any side effects from medication. She is calm and cooperative. ASSESSMENT: 1. Major depressive disorder, recurrent, moderate. 2. Generalized anxiety disorder. PLAN: 1. Increase . 2. Continue Klonopin 0.5 mg p.o. q.6 hours as needed. 3. Monitor for mood. 4. Supportive therapy. Dictated by Sowmya Boyd PA-C Javi Norwood MD [facility] /[id number]
[2019-06-12] MEDS: LEVOTHYROXINE SODIUM 100 MCG TAB PO SCH (05:44)
[2019-06-12 06:19] LABS: INR 2.74; PROTHROMBIN TIME 31.1 seconds (11.9-14.5)
[2019-06-12] MEDS: IPRATROPIUM BROMIDE 0.02% 2.5 ML NEB NEB SCH ×3 (06:52→14:50)
[2019-06-12 07:37] VITALS: BP 138/70
[2019-06-12 07:42] VITALS: BP 122/73
[2019-06-12] MEDS: BALSAM PERU/CASTOR OIL 60 GM OINT...G. TP SCH (09:27)
[2019-06-12] MEDS: AMIODARONE HCL 200 MG TAB PO SCH ×2 (10:54→15:43)
[2019-06-12] MEDS: CYCLOBENZAPRINE HCL 10 MG TAB PO PRN (10:54)
[2019-06-12] MEDS: DULOXETINE HCL 30 MG DELAYED RELEASE PO SCH ×2 (10:55→15:44)
[2019-06-12] MEDS: METOPROLOL TARTRATE 50 MG TAB PO SCH ×2 (10:55→15:46)
[2019-06-12] MEDS: FAMOTIDINE 20 MG TAB PO SCH (10:56)
[2019-06-12] MEDS: LACTOBACILLUS ACIDOPHILUS CAPSULE PO SCH ×2 (10:56→15:44)
--- NOTE | 2019-06-12 11:44 | Progress Note ---
DATE: 06/12/2019 Cardiology Progress Note. SUBJECTIVE: Denies any chest pain or shortness of breath. OBJECTIVE: VITAL SIGNS: Temperature 98.6, heart rate 98, blood pressure 122/73, respiratory rate 20, O2 saturation 96%. GENERAL: No acute distress, alert. NECK: No JVD. CHEST: Clear to auscultation. CARDIOVASCULAR: Irregularly irregular rate and rhythm. Normal S1, S2. Controlled ventricular response. Systolic ejection murmur /6. ABDOMEN: Soft. Bowel sounds positive. EXTREMITIES: No edema. SKIN: Left heel wound. PSYCH: Normal affect. NEURO: Grossly nonfocal. CARDIOVASCULAR MEDICATIONS: Reviewed. Metoprolol 50 mg in the morning and 75 mg in the evening, amiodarone 200 mg b.i.d., warfarin 5 mg daily. LABORATORY DATA: Studies reviewed. Creatinine 2.03. Hemoglobin 8, platelets 171. INR 2.74. ASSESSMENT AND PLAN: 1. A 63-year-old woman with acute on chronic diastolic heart failure, pneumonia, hypertension, paroxysmal atrial fibrillation, chronic left knee wound, hypothyroidism, acute on chronic renal failure, anemia. Recommend continue current cardiovascular medications. 2. Diuretics p.r.n. 3. Upon discharge, advised on outpatient followup within 4 to 6 weeks from a cardiac standpoint and contingent on current recommendations at the time for COVID-19 pandemia guidelines. MD BARB Sewell/NARGIS /[id number]
[2019-06-12 13:31] VITALS: BP 135/85
[2019-06-12] MEDS: WARFARIN SOD 5 MG TAB PO SCH (15:44)
--- NOTE | 2019-06-12 15:45 | Progress Note ---
DATE: 06/12/2019 SUBJECTIVE: The patient feels better. She is very eager to go home. She has no palpitations or tachycardia. PHYSICAL EXAMINATION: VITAL SIGNS: The patient is afebrile. The blood pressure is 122/73 and the pulse is 98. Saturation is 97%. HEENT: Shows no facial swelling or erythema. CARDIAC: Reveals a regular rate and rhythm with normal S1 and S2. LUNGS: Auscultation of lungs reveals clear breath sounds bilaterally. ABDOMEN: Soft and nontender. There is no rebound or guarding. EXTREMITIES: Shows no leg edema or calf tenderness. IMPRESSION: 1. Atrial fibrillation. 2. Urinary tract infection with multidrug-resistant Klebsiella. 3. Chronic left knee wound. 4. Cholelithiasis. 5. Irfcu-fz-pmqenza diastolic heart failure. PLAN: 1. The patient has completed the antibiotics. 2. Continue current cardiac regimen. 3. Arrange for discharge home. MD JENNIFFER Daly/[facility]ARGIS /[id number]
--- NOTE | 2019-06-12 16:25 | Discharge Summary ---
FINAL DIAGNOSIS: Multidrug-resistant Klebsiella septicemia. SECONDARY DIAGNOSES: 1. Extended-spectrum beta-lactamases Escherichia coli urinary tract infection, present on admission. 2. Chronic anemia. 3. Paroxysmal atrial fibrillation with rapid ventricular response. Currently rate is stable. 4. Morbid obesity. 5. Debility. 6. Acute kidney injury, resolving. 7. Acute respiratory distress. 8. Acute respiratory failure, resolved, likely due to acute systolic congestive heart failure exacerbation. 9. Hypothyroidism. CONSULTANTS: 1. Dr. Olea, General Surgery. 2. Dr. Sy, Nephrology. 3. Dr. Pham, Pulmonology. 4. Dr. Son, Wound Care. 5. Dr. Amin, Cardiology. 6. Dr. Jacobs, Infectious Disease. 7. Dr. Norwood, Psychiatry. PROCEDURES/STUDIES PERFORMED: 1. HIDA scan. 2. Abdominal ultrasound. 3. PICC line placement. 4. Abdominal CT. HISTORY: Per H and P. HOSPITAL COURSE: Initially, the patient came in with acute respiratory failure due to acute CHF. This resolved after diuresis. The patient also has ESBL E. coli UTI that was treated with meropenem. Slowly, the patient was doing better, however, the patient became septic again at this time with multidrug-resistant Klebsiella septicemia along with persistent atrial fibrillation with RVR. The patient was on amiodarone drip. The patient was put on amikacin. Fortunately, her renal function remained stable. The patient finished a course of 2 weeks of amikacin. PICC line will be removed. The patient will be discharged home on home physical therapy. Currently, her Coumadin is therapeutic. I will have home health check another INR in about 5 days. I will get the results to Dr. Amin for Coumadin adjustment if necessary. The patient will also follow up with Dr. Amin as well. Currently with p.o. amiodarone and p.o. metoprolol. Her rate is controlled, mostly in the 90s, occasionally 100s. The patient was seen and examined today. It took 33 minutes total to discharge this patient. CONDITION ON DISCHARGE: Improved. DISCHARGE MEDICATIONS: Please see medication reconciliation form. MD ADDI Shen/NARGIS /[id number]
[2019-06-12 16:37] VITALS: BP 112/58
--- NOTE | 2019-06-12 17:25 | Progress Note ---
DATE: 06/12/2019 Psychiatric Progress Note SUBJECTIVE: The patient was evaluated, events noted. The patient is in the room. She is alert, awake, and oriented to situation. She is calm and cooperative. She denies any anxiety. She reports feeling less depressed. She reports sleeping better, but needed the Klonopin and trazodone to help with sleep. She denies any hallucination. She denies any side effects from medication. ASSESSMENT: 1. Major depressive disorder, recurrent, moderate. 2. Generalized anxiety disorder. PLAN: 1. Continue with Cymbalta 30 mg p.o. b.i.d. 2. Continue Klonopin p.r.n. 3. Continue trazodone 50 mg p.o. at bedtime. 4. Supportive therapy. Dictated by Sowmya Boyd PA-C Javi Norwood MD [facility] /[id number]
[2019-06-12] MEDS ORDERED: AMIODARONE HCL200 MG PO (18:11)
[2019-06-12] MEDS ORDERED: CYCLOBENZAPRINE5 MG PO (18:12)
[2019-06-12] MEDS ORDERED: CYMBALTA30 MG PO ×2 (18:13→18:17)
[2019-06-12] MEDS ORDERED: METOPROLOL TART50 MG PO ×2 (18:18→18:20)
[2019-06-12] MEDS ORDERED: LEVOTHYROXINE112 MCG PO (18:18)
[2019-06-12] MEDS ORDERED: TRAZODONE HCL50 MG PO (18:20)
[2019-06-12] MEDS ORDERED: WARFARIN SODIUM5 MG PO (18:21)
== END 2019-06-12 19:08 | disposition home or self-care (01) | DRG 853 ==
LOC: ER 17:39 → ERHOLD 18:24 → ICU 21:18 → MED/SURG3 05-18 18:45 → IMCU 05-26 23:23 → MED/SURG2 05-31 13:17 → IMCU 05-31 13:41 → MED/SURG2 05-31 14:52
PROVIDERS: ADMIT Internal Medicine; ATTEND Internal Medicine
PROC: 5A1945Z Respiratory Ventilation, 24-96 Consecutive Hours (ICD-10-PCS; principal; 2019-05-13)
PROC: 0BH17EZ Insertion of Endotracheal Airway into Trachea, Via Natural or Artificial Opening (ICD-10-PCS; 2019-05-13)
PROC: 0JBP0ZZ Excision of Left Lower Leg Subcutaneous Tissue and Fascia, Open Approach (ICD-10-PCS; 2019-05-24)
DX: A41.89 Other specified sepsis (principal); J18.9 Pneumonia, unspecified organism; I50.33 Acute on chronic diastolic (congestive) heart failure; J96.22 Acute and chronic respiratory failure with hypercapnia; J96.21 Acute and chronic respiratory failure with hypoxia; N17.0 Acute kidney failure with tubular necrosis; G93.41 Metabolic encephalopathy; N30.01 Acute cystitis with hematuria; Z68.43 Body mass index [BMI] 50.0-59.9, adult; I13.0 Hypertensive heart and chronic kidney disease with heart failure and stage 1 through stage 4 chronic kidney disease, or unspecified chronic kidney disease; Z16.12 Extended spectrum beta lactamase (ESBL) resistance; Z16.342 Resistance to multiple antimycobacterial drugs; K52.1 Toxic gastroenteritis and colitis; F33.1 Major depressive disorder, recurrent, moderate; B37.49 Other urogenital candidiasis; E87.1 Hypo-osmolality and hyponatremia; K80.10 Calculus of gallbladder with chronic cholecystitis without obstruction; L97.319 Non-pressure chronic ulcer of right ankle with unspecified severity; L97.828 Non-pressure chronic ulcer of other part of left lower leg with other specified severity; J44.9 Chronic obstructive pulmonary disease, unspecified; E66.01 Morbid (severe) obesity due to excess calories; I48.0 Paroxysmal atrial fibrillation; N18.3 Chronic kidney disease, stage 3 (moderate); Z87.891 Personal history of nicotine dependence; Z82.49 Family history of ischemic heart disease and other diseases of the circulatory system; Z88.6 Allergy status to analgesic agent; Z88.5 Allergy status to narcotic agent; Z88.0 Allergy status to penicillin; Z88.2 Allergy status to sulfonamides; Z88.8 Allergy status to other drugs, medicaments and biological substances; R65.20 Severe sepsis without septic shock; B96.1 Klebsiella pneumoniae [K. pneumoniae] as the cause of diseases classified elsewhere; B95.2 Enterococcus as the cause of diseases classified elsewhere; B96.89 Other specified bacterial agents as the cause of diseases classified elsewhere; E11.42 Type 2 diabetes mellitus with diabetic polyneuropathy; B96.20 Unspecified Escherichia coli [E. coli] as the cause of diseases classified elsewhere; E87.6 Hypokalemia; E03.9 Hypothyroidism, unspecified; R21 Rash and other nonspecific skin eruption; R53.81 Other malaise; D50.0 Iron deficiency anemia secondary to blood loss (chronic); T36.95XA Adverse effect of unspecified systemic antibiotic, initial encounter; E83.42 Hypomagnesemia; F41.1 Generalized anxiety disorder; T36.0X5A Adverse effect of penicillins, initial encounter; Y92.230 Patient room in hospital as the place of occurrence of the external cause; Z79.01 Long term (current) use of anticoagulants; L89.151 Pressure ulcer of sacral region, stage 1
CPT/HCPCS: 31500; 36415; 36569; 36600; 71045; 71046; 71250; 73020; 74176; 76705; 78227; 80048; 80053; 80061; 80076; 80150; 80162; 80202; 81001; 82270; 82550; 82553; 82805; 83605; 83690; 83735; 83880; 84100; 84443; 84484; 85025; 85610; 85730; 86850; 86870; 86880; 86900; 86905; 87040; 87071; 87086; 87186; 87205; 87493; 93005; 93306; 94002; 94003; 94640; 94660; 97139; 99001; 99251; 99285; A9537; J0330; J0456; J1450; J1644; J1940; J2020; J2060; J2543; J3243; J3370; J3475; J3480; J7030; J7050; P9045; Q0162; Q9967

== ENCOUNTER 2019-07-22 16:18 | Inpatient (IN) | payer MEDICARE, OTHER ==
[~2019-07-22] VITALS: Ht 180.3 cm; Wt 143.4 kg
[~2019-07-22 16:18] MED LIST: AMIODARONE HCL200 MG PO; ATENOLOL50 MG PO; CARDIZEM60 MG PO; CYCLOBENZAPRINE10 MG PO; CYCLOBENZAPRINE5 MG PO; CYMBALTA30 MG PO; DIGOXIN250 MCG PO; DOCUSATE SODIU100 MG PO; FUROSEMIDE40 MG PO; LEVOTHYROXINE100 MC1 IV; LEVOTHYROXINE112 MCG PO; METOPROLOL TART50 MG PO; TRAZODONE HCL50 MG PO; WARFARIN SODIUM5 MG PO
[2019-07-22 17:29] LABS: COLOR,URINE ORANGE (YELLOW)
[2019-07-22 17:30] LABS: BILIRUBIN,URINE NEGATIVE (NEGATIVE); CLARITY,URINE SL CLOUDY (CLEAR); KETONES,URINE NEGATIVE (NEGATIVE); LEUKOCYTE ESTERASE ,URINE NEGATIVE (NEGATIVE); NITRITE,URINE NEGATIVE (NEGATIVE); PROTEIN,URINE DIPSTICK 1+ (NEGATIVE); URINE UROBILINOGEN 0.2 mg/dL (0.2 - 1)
[2019-07-22 17:40] LABS: BACTERIA,URINE MANY /HPF; RBC,URINE 21-50 /HPF (0-5)
[2019-07-22 17:41] LABS: EPITHELIAL CELLS,URINE MANY /LPF
[2019-07-22] MEDS ORDERED: LINEZOLID 600 MG/D5W 300ML 300 ML IV ONE (18:00)
[2019-07-22] MEDS ORDERED: SODIUM CHLORIDE 0.9% IV ONE (18:00)
[2019-07-22] MEDS ORDERED: AMIKACIN SULFATE IV ONE (18:00)
[2019-07-22] MEDS ORDERED: AMIKACIN SULFATE 250 MG/ML 2ML VIAL IV ONE (18:00)
[2019-07-22] MEDS ORDERED: SODIUM CHLORIDE 0.9% 500ML 500 ML IV ONE (18:45)
[2019-07-22] MEDS ORDERED: DEXTROSE 50% SYRINGE 50 ML IV PRN (19:00)
[2019-07-22] MEDS ORDERED: SODIUM CHLORIDE 0.9% 1000ML 1,000 ML IV SCH (19:00)
[2019-07-22 19:05] LABS: BASOPHILS # (AUTO) 0.1 (0.0-0.1); BASOPHILS % 0.7 % (0.0-1.0); EOSINOPHILS # (AUTO) 0.3 (0.0-0.4); EOSINOPHILS % 3.5 % (0.0-6.0); HEMATOCRIT 29.8 % (34.2-44.1); HEMOGLOBIN 8.3 g/dL (12.0-16.0); LYMPHOCYTES % 11.9 % (18.0-39.1); MEAN CORPUSCULAR HEMOGLOBIN 22.7 pg (28-32); MEAN CORPUSCULAR HGB CONC 27.9 g/dL (31-35); MEAN CORPUSCULAR VOLUME 81.6 fL (81-99); MONOCYTES % 11.6 % (4.4-11.3); NEUTROPHILS # (AUTO) 6.2 (2.1-6.9); NEUTROPHILS % 71.9 % (38.7-80.0); PLATELET COUNT 278 x10e3/uL (140-360); RED BLOOD COUNT 3.65 x10e6/uL (3.6-5.1); RED CELL DISTRIBUTION WIDTH 20.5 % (11.7-14.4)
[2019-07-22] MEDS ORDERED: SODIUM CHLORIDE 0.9% 1000ML 1,000 ML ONE (19:20)
[2019-07-22 19:21] LABS: ALBUMIN 3.6 g/dL (3.5-5.0); ANION GAP 14.2 mmol/L (8-16); CALCIUM 9.9 mg/dL (8.4-10.2); CREATININE, SERUM 1.66 mg/dL (0.57-1.11); POTASSIUM 4.2 mmol/L (3.5-5.1)
[2019-07-22 21:00] VITALS: BP 117/82
[2019-07-22] MEDS: INSULIN LISPRO 100 UNIT/1 ML 3ML VIAL SQ SCH (22:10)
[2019-07-22] MEDS ORDERED: PROTONIX20 MG PO (22:33)
[2019-07-22] MEDS ORDERED: PENTAZOCINE-NA1 EACH PO (22:33)
[2019-07-22] MEDS ORDERED: METOPROLOL SUCC50 MG PO (22:33)
[2019-07-22 22:38] VITALS: BP 117/82
--- NOTE | 2019-07-22 22:45 | NUR ---
RECEIVED PATIENT FROM ER IN STABLE CONDITION AOX4, NO SIGNS OF RESPIRATORY DISTRESS NOTED. IV FLUIDS ARE RUNNING AT ORDERED RATE AND PATIENT VOICES NO PAIN AT THIS TIME. NASAL CANNULA IS INTACT AND RUNNING AT 2 LITERS, WOUND NOTED TO THE LEFT KNEE FROM PREVIOUS PROCEDURE. BED IS I LOWEST POSITION, BOTH SIDE RAILS ARE UP, CALL LIGHT IS WITHIN EASY REACH, WILL CONTINUE TO MONITOR.
[2019-07-22 22:51] VITALS: BP 117/82
[2019-07-22] MEDS ORDERED: METOPROLOL TARTRATE INJ 1 MG/ML VIAL IV PRN (23:15)
[2019-07-22] MEDS ORDERED: ONDANSETRON HCL INJ 2MG/ML 2ML 2 MG/ML VIAL IV PRN (23:15)
[2019-07-22] MEDS ORDERED: ACETAMINOPHEN 325 MG TAB PO PRN (23:15)
[2019-07-22] MEDS ORDERED: TRAMADOL HCL 50 MG TAB PO PRN (23:15)
[2019-07-23] VITALS (8 sets, daily range): BP systolic 102–123; BP diastolic 65–95
[2019-07-23] MEDS ORDERED: PENTAZOCINE/NALOXONE 1 TAB PO PRN (00:45)
[2019-07-23] MEDS ORDERED: DOCUSATE SODIUM 100 MG CAP PO PRN (00:45)
[2019-07-23] MEDS ORDERED: METOPROLOL TARTRATE INJ 1 MG/ML VIAL IV PRN (01:00)
--- NOTE | 2019-07-23 01:38 | History and Physical ---
CHIEF COMPLAINT: Difficulty urinating. HISTORY OF PRESENT ILLNESS: The patient is a 64-year-old female, who has been unable to urinate since 2:00 p.m. on 07/21/2019. She denies painful urination, but has had generalized swelling. She states she was at [facility] [place] [address] in February of 2019, due to a fall with her complete weight on to the left knee while she was in her bathroom at her home. She had surgery on the knee, was [facility] to [facility], but was not progressing very well and unable to walk. She states that while she was there, she became unresponsive and by this time, it was sometime in April, and she was admitted to [facility] and had a complicated long hospital stay while here. Today, she was seen and evaluated by the emergency department physician and admitted for urinary tract infection along with chronic kidney disease. PAST MEDICAL HISTORY: Hypertension, chronic atrial fibrillation, chronic kidney disease stage 3B. Super morbid obesity, diastolic congestive heart failure, osteoarthritis, cellulitis, multiple skin wounds from decubitus ulcers such as on her sacrum, type 2 diabetes mellitus, colonization with multidrug-resistant organism, depression, sepsis with multidrug-resistant Klebsiella septicemia, ESBL E coli UTI, pneumonia, hypothyroidism, falls, ambulatory dysfunction, peripheral arterial disease. PAST SURGICAL HISTORY: Hysterectomy, bilateral knee surgery, hematoma removed from the left knee, left large toe amputation. FAMILY HISTORY: Mother had congestive heart failure, diabetes mellitus, hypertension, hyperlipidemia, and end-stage renal disease as well as probably several other medical problems not listed. Father had coronary artery disease, 3 orthopedic surgeries, diabetes mellitus, he was a smoker and had COPD, hyperlipidemia, and likely also had several other medical conditions not listed. SOCIAL HISTORY: She lives alone. Her former occupation before she was disabled was working at [employer]. She used to ambulate with a walker; however, now is nonambulatory. She denies any history of smoking, alcohol, or illicit drug use. ALLERGIES: INCLUDE MORPHINE, [id number] REDUCTASE INHIBITOR, SULFA, PENICILLINS. HOME MEDICATIONS: Include amiodarone 200 mg p.o. b.i.d., atenolol 100 mg p.o. at bedtime, digoxin 250 mcg p.o. daily, diltiazem 30 mg p.o. daily, Cymbalta, Lasix 40 mg p.o. daily, levothyroxine 150 mcg daily, metoprolol succinate 100 mg daily, Protonix, Talwin NX, trazodone 50 mg p.o. at bedtime, Coumadin 5 mg p.o. daily, and cyclobenzaprine 10 mg p.o. q.8 hours p.r.n. REVIEW OF SYSTEMS: GENERAL: Denies any significant weight loss or weight gain. Denies fever or chills. EYES: Wears glasses. No history of eye surgery. EARS, NOSE, AND THROAT: No complaints of sore throat or nasal drip. RESPIRATORY: No complaints of shortness of breath, cough, or phlegm. GENITOURINARY: She has difficulty urinating since July 20. Denies dysuria. PSYCHIATRIC: Denies psychiatric history other than depression. INTEGUMENTARY: She has several superficial scratches over the legs and has a left knee wound, that is poorly healing. She has a history of decubitus ulcer on the sacral area. CARDIOVASCULAR: No complaints of chest pain or palpitations. GASTROINTESTINAL: No complaints of nausea, vomiting, diarrhea, or constipation. Last bowel movement was yesterday. MUSCULOSKELETAL: Unable to ambulate. Denies joint or muscle pain at present. NEUROLOGIC: Denies headache or dizziness. ENDOCRINE: Known diabetic. HEMATOLOGIC: Denies any bleeding or bruising presently. PHYSICAL EXAMINATION: VITAL SIGNS: Temperature 98.1, T-max 99.2, heart rate 89, blood pressure 122/85, respirations 18, and oxygen saturation 96%. Height 5 feet 6 inches, weight 369 pounds. BMI 59.55. GENERAL: The patient is lying supine in bed, in no acute distress. LUNGS: Clear to auscultation. Respiratory pattern even and unlabored. Oxygen at 2.5 L/minute via nasal cannula. HEENT: Wearing glasses. Extraocular eye movements intact. NECK: Supple. No lymphadenopathy, thyromegaly, or JVD. CARDIOVASCULAR: Irregularly irregular. No murmur appreciated. Normal saline at 50 mL an hour through a peripheral IV. ABDOMEN: Bowel sounds positive. Soft, obese. No guarding. : Landaverde catheter with yellow urine. EXTREMITIES: Cool to touch bilaterally. No edema, clubbing, or obvious cyanosis. No sign of DVT. NEUROLOGICAL: GCS 15. Nonfocal. LABORATORY DATA: WBC 8.55, hemoglobin 8.3, hematocrit 29.8, and platelets 278. Sodium 138, potassium 4.2, chloride 100, CO2 of 28, BUN 15, creatinine 1.66, estimated GFR 31, glucose 96. Fingerstick blood glucose level 141, calcium 9.9, total bilirubin 0.9, AST 15, ALT 10, alkaline phosphatase 106, total protein 7.3, albumin 3.6. No previous hemoglobin A1c is noted. Lipid panel last collected on May 27, 2019. Most recent TSH was on 05/18/2019, TSH was 3.006. Her lipids were not elevated. Blood cultures x2 and urine culture have been collected and are pending. Urinalysis showed orange urine, slightly cloudy, 1+ protein, specific gravity 1.025, pH 5.5, moderate amount of blood, negative for nitrites and leukocyte esterases, bilirubin negative, rbc 21-50, wbc 11-20, many epithelial cells, many bacteria. Baseline GFR appears to be 30 to 35. IMAGING: She had a chest x-ray on June 05, 2019, which showed stable small right patchy airspace opacity and minimal left basilar atelectasis. Trace right pleural effusion. No pneumothorax. Soft tissues and bones. No acute abnormality. Echocardiogram was done on 07/20/2007. Ejection fraction was 55% to 60%. ASSESSMENT AND PLAN: 1. Acute urinary tract infection, present on admission. We will await final urine culture and sensitivity results. She was given Zyvox and amikacin in the emergency room. Infectious Disease has been consulted. The patient has a history of being on amikacin in May and her random amikacin level on May 30 was 13.4, WBCs 8.55, T-max 99.2. 2. Urinary retention, indwelling Landaverde catheter. Monitor urinary output. As she improves, we will attempt to remove urinary catheter if possible and consult Urology if needed. 3. Anemia of chronic disease. Grzegorz hematuria is not noted. Monitor H and H. we will ask for fecal occult blood test to be collected. 4. Controlled hypertension with chronic kidney disease stage 3B, chronic diastolic congestive heart failure and peripheral arterial disease. Currently, blood pressure is stable. We will resume home medications and monitor blood pressure. 5. Controlled type 2 diabetes mellitus with chronic kidney disease stage 3B. Hemoglobin A1c in a.m. Monitor fingerstick blood glucose levels before and at bedtime. Serum glucose 96. 6. Chronic atrial fibrillation. Monitor telemetry. We will get a facility baseline 12-lead EKG. Dr. Amin follows her on an outpatient basis. We will have him interpret the 12-lead. Amiodarone, Coumadin, and digoxin will be resumed. 7. Chronic diastolic congestive heart failure. At this point, no cardiac complaints. We will defer echocardiogram to Dr. Amin on an outpatient basis. Monitor fluid status. Chest x-ray results. 8. Chronic kidney disease stage 3. Monitor renal function. 9. Peripheral arterial disease with poorly healing open wound to the left knee. Wound is open, but there is a scab tissue, thus not draining. We will monitor. Currently, no complaints. May need a bilateral lower extremity arterial Doppler ultrasound on an outpatient basis. 10. Hypothyroidism. We will resume current dose of levothyroxine. TSH on 05/18/2019 was 3.006. 11. Depression. Resume home medications. 12. Super morbid obesity with BMI 59.55 and osteoarthritis. Dietary restrictions. 13. Ambulatory dysfunction with a history of falls. PT evaluate and treat. 14. Prophylaxis. Pepcid, Coumadin. H and P time spent 70 minutes. Billing code [id number]. Dictated by David Alcantar NP MD [facility]/NARGIS /[id number]
[2019-07-23 05:33] LABS: BASOPHILS # (AUTO) 0.1 (0.0-0.1); BASOPHILS % 0.7 % (0.0-1.0); EOSINOPHILS # (AUTO) 0.2 (0.0-0.4); EOSINOPHILS % 2.5 % (0.0-6.0); HEMATOCRIT 26.9 % (34.2-44.1); HEMOGLOBIN 7.5 g/dL (12.0-16.0); LYMPHOCYTES % 13.1 % (18.0-39.1); MEAN CORPUSCULAR HEMOGLOBIN 22.8 pg (28-32); MEAN CORPUSCULAR HGB CONC 27.9 g/dL (31-35); MEAN CORPUSCULAR VOLUME 81.8 fL (81-99); MONOCYTES # (AUTO) 1.1 (0.2-0.8); NEUTROPHILS # (AUTO) 5.3 (2.1-6.9); NEUTROPHILS % 69.2 % (38.7-80.0); PLATELET COUNT 236 x10e3/uL (140-360); RED BLOOD COUNT 3.29 x10e6/uL (3.6-5.1); RED CELL DISTRIBUTION WIDTH 20.3 % (11.7-14.4)
[2019-07-23 05:53] LABS: ALBUMIN 3.5 g/dL (3.5-5.0); ANION GAP 13.3 mmol/L (8-16); CALCIUM 9.8 mg/dL (8.4-10.2); CREATININE, SERUM 1.74 mg/dL (0.57-1.11); POTASSIUM 4.3 mmol/L (3.5-5.1)
[2019-07-23 06:18] LABS: MAGNESIUM 1.7 MG/DL (1.3-2.1); PHOSPHORUS 3.9 MG/DL (2.3-4.7)
--- NOTE | 2019-07-23 07:04 | NUR ---
bedside shift report received from PM nurse; pt awake, alert, oriented, no signs of distress. in stable condition. all safety measures in place.
[2019-07-23] MEDS: INSULIN LISPRO 100 UNIT/1 ML 3ML VIAL SQ SCH ×4 (07:30→21:02)
[2019-07-23 08:06] LABS: ANISOCYTOSIS MODERATE; ELLIPTOCYTE, RBC SLIGHT; OVALOCYTES FEW; RBC MORPHOLOGY COMMENT ABNORMAL
[2019-07-23 08:07] LABS: HYPOCHROMASIA SLIGHT
[2019-07-23 08:08] LABS: STOMATOCYTES SLIGHT
[2019-07-23 08:09] LABS: MICROCYTOSIS SLIGHT
[2019-07-23 08:10] LABS: PLATELET ESTIMATE ADEQUATE; PLATELET MORPHOLOGY COMMENT NORMAL
[2019-07-23] MEDS: LEVOTHYROXINE SODIUM 112 MCG TAB PO SCH (08:54)
[2019-07-23] MEDS: METOPROLOL SUCCINATE 50 MG TAB XL PO SCH (08:54)
[2019-07-23] MEDS: PANTOPRAZOLE SOD 40 MG TABEC PO SCH (08:55)
[2019-07-23] MEDS: METOPROLOL TARTRATE 50 MG TAB PO SCH (08:55)
[2019-07-23] MEDS: DULOXETINE HCL 30 MG DELAYED RELEASE PO SCH ×2 (08:56→17:20)
[2019-07-23] MEDS: AMIODARONE HCL 200 MG TAB PO SCH ×2 (08:57→17:20)
[2019-07-23] MEDS: FAMOTIDINE 20 MG TAB PO SCH ×2 (08:58→17:20)
[2019-07-23] MEDS: DOCUSATE SODIUM 100 MG CAP PO SCH ×2 (08:58→17:20)
[2019-07-23] MEDS: DILTIAZEM HCL 60 MG TAB PO SCH (08:59)
[2019-07-23 10:10] LABS: INR 1.53; PROTHROMBIN TIME 19.4 seconds (11.9-14.5)
[2019-07-23] MEDS: WARFARIN SOD 5 MG TAB PO SCH (12:33)
--- NOTE | 2019-07-23 12:52 | NUR ---
NURSING TO CONTINUE TO MAINTAIN MODERATE PUP STATUS AND INTERVENTIONS AND ALTERNATING PRESSURE MATTRESS NURSING TO CONTINUE TO ASSIST PATIENT OUT OF BED FOR MEALS AND MUCH TOLERATED NURSING TO CONTINUE TO ASSIST PATIENT NEEDED WITH MEALS AND NUTRITIONAL SUPPLEMENTS TO ENSURE PROPER REQUIREMENTS FOR HEALING NURSING TO CONTINUE TO OFFLOAD FEET AND HEELS NEEDED WITH PILLOW SUSPENSION WHEN IN BED NURSING TO CLEAN LEFT KNEE HEALING SURGICAL WOUND WITH NORMAL SALINE DAILY AND APPLY SANTYL OINTMENT TO YELLOW SLOUGH COVERED WOUND BASE AND COVER WITH ALLEVYN FOAM DRESSING Addendum: 07/23/19 at 1255 by Jesus Wolfe RN Amended: Links added.
--- NOTE | 2019-07-23 13:56 | Progress Note ---
DATE: 07/23/2019 SUBJECTIVE: The patient is lying supine in bed. Denies any new complaints. Denies fever or chills. She does have a sensation that her bladder feels full, that she is not completely emptying it. Denies any dysuria. She has had difficulty urinating since July 20. Her last bowel movement was on 07/21/2019. MEDICATIONS: Reviewed. OBJECTIVE: VITAL SIGNS: Temperature 98.2, T-max 99.2, heart rate 95, blood pressure 121/95, respirations 20, and oxygen saturation 100%. GENERAL: The patient is lying supine in bed. No acute distress. LUNGS: Clear to auscultation. Respiratory pattern even and nonlabored. Oxygen at 2.5 L/min via nasal cannula. HEENT: EOMI. NECK: Supple. CARDIOVASCULAR: Irregularly irregular without murmur. Normal saline infusing at 50 mL an hour via PIV. ABDOMEN: Bowel sounds positive. Soft, obese. No guarding. GENITOURINARY: Landaverde catheter with shara urine inside. EXTREMITIES: Cool to touch bilaterally. No edema, clubbing, or cyanosis. No sign of DVT. NEUROLOGIC: GCS 15. Nonfocal. LABORATORY DATA: WBC 7.58, hemoglobin 7.5, hematocrit 26.9, and platelets 236. Sodium 138, potassium 4.3, chloride 100, CO2 of 29, BUN 15, creatinine 1.74, estimated GFR 29, glucose 94. Fingerstick blood glucose levels 105, 98. Hemoglobin A1c 5.5%, calcium 9.8, phosphorus 3.9, magnesium 1.7, total bilirubin 1.0, AST 18, ALT 11, alkaline phosphatase 100, total protein 7.0, albumin 3.5. Coronavirus by PCR collected today is pending. Blood cultures x2 collected 07/21 are pending. Preliminary urine culture and sensitivity shows no growth after 18 to 24 hours. Baseline GFR appears to be 30 to 35. DIAGNOSTIC STUDIES: No new imaging today. ASSESSMENT AND PLAN: 1. Acute urinary tract infection, POA. a. ID following. Await final urine culture and sensitivity results. She received Zyvox and amikacin in the emergency department. WBC 7.58, afebrile, no chills. 2. Urinary retention, indwelling Landaverde catheter. a. Monitor urinary output. Case was discussed with Prasanna, her nurse who will get a bladder scan to ensure no residual. As she improves, we will attempt to remove urinary catheter if possible and consult Urology if needed. 3. Anemia of chronic disease. Hemoglobin 7.5 (8.3). Grzegorz hematuria is not noted. Monitor H and H. FOBT pending. 4. Controlled hypertension with chronic kidney disease stage 3B, chronic diastolic congestive heart failure and Peripheral artery disease. a. Blood pressure stable. Continue oral metoprolol tartrate, metoprolol succinate, diltiazem, and p.r.n. IV metoprolol. 5. Controlled type 2 diabetes mellitus with chronic kidney disease stage 3B. a. Hemoglobin A1c 5.5%, FSBG WNL, glucose 105 and 98. 6. Chronic atrial fibrillation. a. We monitored her on telemetry. Continue amiodarone, diltiazem, Coumadin. She is no longer on digoxin. Today PT 19.4, INR 1.53. A 12-lead ECG was ordered last night, however, has not yet been done. We will ask RN to follow up on this. It is non-emergent. The patient will be following up with Dr. Amin on an outpatient basis after discharge. 7. Chronic diastolic congestive heart failure. a. No complaints of chest pain or palpitations. Defer echocardiogram for now. Monitor fluid status and chest x-ray results. Gentle hydration with IV fluids. 8. Chronic kidney disease stage 3-monitor renal function. 9. Peripheral artery disease with poorly healing open wound to the left knee. a. Wound is open, but there is a scab tissue, thus not draining. Monitor. She may need a bilateral lower extremity arterial Doppler ultrasound done on an outpatient basis. Both legs cool to touch. 10. Hypothyroidism. Home dose of levothyroxine resumed. TSH on 05/18/2019 was 3.006. 11. Depression-continue trazodone. 12. Super morbid obesity with BMI 59.55 and osteoarthritis-dietary restrictions. 13. Ambulatory dysfunction with a history of falls-PT eval and treat. Angela and p.r.n. tramadol for pain control. 14. Prophylaxis-Protonix and Coumadin. Time spent 35 minutes. Billing code [id number]. Dictated by David Alcantar, DIFFUSION OPERATOR MD ANGEL Lion/CHAZL /[id number]
[2019-07-23] MEDS: EPOETIN ALFA-EPBX 10,000 UNIT/ML VIAL SC SCH (15:02)
--- NOTE | 2019-07-23 15:45 | NUR ---
PAST MEDICAL HISTORY: Hypertension, chronic atrial fibrillation, chronic kidney disease stage 3B. Super morbid obesity, diastolic congestive heart failure, osteoarthritis, cellulitis, multiple skin wounds from decubitus ulcers such as on her sacrum, type 2 diabetes mellitus, colonization with multidrug-resistant organism, depression, sepsis with multidrug-resistant Klebsiella septicemia, ESBL E coli UTI, pneumonia, hypothyroidism, falls, ambulatory dysfunction, peripheral arterial disease. PAST SURGICAL HISTORY: Hysterectomy, bilateral knee surgery, hematoma removed from the left knee, left large toe amputation. FAMILY HISTORY: Mother had congestive heart failure, diabetes mellitus, hypertension, hyperlipidemia, and end-stage renal disease as well as probably several other medical problems not listed. Father had coronary artery disease, 3 orthopedic surgeries, diabetes mellitus, he was a smoker and had COPD, hyperlipidemia, and likely also had several other medical conditions not listed. SOCIAL HISTORY: She lives alone. Her former occupation before she was disabled was working at [employer]. She used to ambulate with a walker; however, now is nonambulatory. She denies any history of smoking, alcohol, or illicit drug use. ALLERGIES: INCLUDE MORPHINE, [id number] REDUCTASE INHIBITOR, SULFA, PENICILLINS. HOME MEDICATIONS: Include amiodarone 200 mg p.o. b.i.d., atenolol 100 mg p.o. at bedtime, digoxin 250 mcg p.o. daily, diltiazem 30 mg p.o. daily, Cymbalta, Lasix 40 mg p.o. daily, levothyroxine 150 mcg daily, metoprolol succinate 100 mg daily, Protonix, Talwin NX, trazodone 50 mg p.o. at bedtime, Coumadin 5 mg p.o. daily, and cyclobenzaprine 10 mg p.o. q.8 hours p.r.n. [id number]
--- NOTE | 2019-07-23 16:26 | Consultation ---
DATE OF CONSULTATION: 07/23/2019 Urology Consultation REASON FOR CONSULTATION: Urinary retention. HISTORY OF PRESENT ILLNESS: Natalya Wahl is a 64-year-old woman, admitted with complicated urinary tract infection. She was found to have urinary retention. Landaverde catheter was placed and urological consultation was sought. The patient denies stress incontinence. She does report overactive bladder and urge incontinence. The patient denies ever having urological surgery. She denies any hematuria and denies any urolithiasis. PAST MEDICAL AND SURGICAL HISTORY: 1. Status post total abdominal hysterectomy with unilateral salpingo-oophorectomy. 2. Contralateral salpingo-oophorectomy a year later. 3. Status post bilateral knee surgery. 4. Morbid obesity with BMI of 44.06. 5. Congestive heart failure. 6. Chronic kidney disease. 7. Respiratory failure. 8. Possible urosepsis. 9. 0, para 0. 10. Anemia. 11. Diabetes mellitus. 12. Chronic atrial fibrillation. 13. Peripheral artery disease with poorly healing wounds. 14. Hypothyroidism. 15. Depression. 16. History of falls. FAMILY HISTORY: Noncontributory to the active urological problems. CURRENT MEDICATIONS: Please refer the MAR. ALLERGIES: MORPHINE, PENICILLINS, STATIN, SULFA, ACETAMINOPHEN, CODEINE, FENTANYL, DEMEROL, OXYCODONE, AND TRAMADOL. SOCIAL HISTORY: The patient denies current smoking, ethanol, and drug use. She used to work for the [employer]. REVIEW OF SYSTEMS: Discussed as above in history of present illness and past medical history, otherwise negative for all systems. PHYSICAL EXAMINATION: GENERAL: Severely morbidly obese woman, lying in bed, in no apparent distress. She is currently afebrile. VITAL SIGNS: Currently, stable. ABDOMEN: Soft, obese, nondistended, nontender without costovertebral angle tenderness. No masses are discernible. GENITOURINARY: There is a Landaverde catheter in place, draining clear urine out. For the remaining physical examination systems please refer to the admission history and physical in the chart. LABORATORY STUDIES: CT scan of the abdomen and pelvis was performed in May, revealed a 2.5 cm right adrenal nodule, no hydronephrosis, and bilateral perinephric stranding was noted at that time. Current blood and urine cultures are pending. White blood cell count 7580, hemoglobin 7.5, and platelets are 236,000. The patient's creatinine is 1.74, it was 1.66 on admission. PT is elevated at 19.4. Urinalysis significant for 21 to 50 rbc's, 11 to 20 wbc's, and many bacteria. ASSESSMENT: 1. Complicated urinary tract infection. 2. Urinary retention. 3. Landaverde catheter in situ. 4. Overactive bladder. 5. Urge incontinence. 6. Right adrenal nodule. 7. Anemia. 8. Chronic renal insufficiency. 9. Microscopic hematuria. PLAN: 1. Leave Landaverde catheter in place at the present time. 2. Awaiting the urine culture and sensitivity, and adjusting the antibiotics accordingly. 3. Ongoing urological followup is must. The patient is too large for a urodynamic study in the office. However, we definitely need to follow up on a long-term basis to manage her incontinence as well as recurrent urinary tract infection. At some point, cystoscopic examination may be warranted. Thank you very much for involving us in the care of your patient. We will be happy to follow her along with you as well as an outpatient. Oscar Sarmiento MD OH/NARGIS /[id number]
[2019-07-23] MEDS: COLLAGENASE 5 GM TUBE TP SCH (17:15)
[2019-07-23] MEDS: MEROPENEM 500MG/ NS 50ML 50 ML IV SCH (17:25)
--- NOTE | 2019-07-23 17:26 | NUR ---
PERFORMED WOUND CARE TO LEFT KNEE DIRECTED BY WOUND CARE CONSULT.
--- NOTE | 2019-07-23 18:52 | NUR ---
Patient will benefit from a BSC for home use. See PT kaye for details. Addendum: 07/23/19 at 1853 by Arie Lima PT Amended: Links added.
--- NOTE | 2019-07-23 18:57 | Consultation ---
DATE OF CONSULTATION: Initial Nephrology Consultation Report REASON FOR CONSULTATION: Chronic kidney disease, elevated serum creatinine. I have been kindly asked by Dr. Quinteros to see this patient in regard to chronic kidney disease. HISTORY OF PRESENT ILLNESS: Ms. Wahl is a 64-year-old female, who presented to the emergency room yesterday because of having not voided and also she feels that she has also become more swollen. This patient has an extensive past medical history. Apparently, she was admitted to the hospital about 2 months ago. At that time, she had a urinary tract infection with multiple drug-resistant organisms. She was treated with amikacin as one of the antibiotic along with other antibiotics. When the patient was here in the hospital during the month late April or May, her serum creatinine was about 1.6 to 1.7. It actually shay to about 2.1 to 2.2. The patient does take some NSAIDs. She cannot quantitate how much, but she says that really not a lot. PAST MEDICAL HISTORY: The patient has history of chronic kidney disease, history of diabetes, history of hypertension, history of atrial fibrillation, history of congestive heart failure, and history of arthritis. She has had urinary tract infection recently with ESBL E. coli and Klebsiella. She has hypothyroidism and peripheral arterial disease. PAST SURGICAL HISTORY: She has undergone hysterectomy, knee surgery bilaterally, and she has had amputation of the left large toe. MEDICATIONS: At the present time, the patient is on amiodarone, levothyroxine, pantoprazole, metoprolol, diltiazem, docusate, famotidine, duloxetine, and warfarin. SOCIAL HISTORY: The patient lives alone. No smoking. No ETOH. risk factor REVIEW OF SYSTEMS: As per HPI. PHYSICAL EXAMINATION: VITAL SIGNS: Blood pressure 116/80 and pulse is 100. GENERAL: The patient is morbidly obese. HEENT: No increased JVD. Mucous membranes are moist. CARDIOVASCULAR: Regular rate and rhythm. LUNGS: Decreased breath sounds. ABDOMEN: Pannus obese. EXTREMITIES: Trace to 1+ edema. LABORATORY RESULTS: Sodium 138, potassium 4.3, chloride 100, bicarbonate 29, BUN and creatinine 15 and 1.7 respectively. The patient had a urinalysis that showed 21 to 50 red cells, 11 to 20 white cells, and many bacteria. Urine culture so far shows no growth. White count 7.5, hemoglobin and hematocrit 7.5 and 27 respectively. IMPRESSION/PLAN: 1. Chronic kidney disease, stage 3. 2. Rule out urinary tract infection. 3. Mild dehydration. 4. Anemia secondary to chronic disease. PLAN: At the present time, the patient's renal function seems to be kind at her baseline, but we will keep her hydrated so that she does not become prerenal and IV contrast should be avoided. I will order an ultrasound of the kidneys. For the anemia, I will go ahead and start her on Aranesp also. Thank you, Dr. Quinteros, for this consultation. Ather MD LUCIO Carl/NARGIS /[id number]
--- NOTE | 2019-07-23 19:25 | NUR ---
RECEIVED THE PATIENT IN REPORT.LYEING IN THE BED.AAOX3.BED BOUND.ALLEN IN PLACE.DENIED NEEDS THIS TIME.PHONE AND CALL LIGHT WITHIN REACH.INSTRUCTED TO CALL FOR ASSISTANCE NEEDED.
--- NOTE | 2019-07-23 20:12 | Consultation ---
DATE OF CONSULTATION: REASON FOR CONSULTATION: UTI with multidrug resistant pathogen. HISTORY OF PRESENT ILLNESS: This patient, who is a 64-year-old white female with history of morbidly obese. The patient comes to the emergency room because she was not able to urinate. The patient was recently in the hospital and she had multi-drug resistant after a fall with left knee injury and the patient was sent to [facility]. The patient was admitted to [facility] with UTI, where she was here for prolonged stay. She is coming because she is having history of voiding discomfort, feeling that the bladder was full. A catheter was placed. I discussed with ER physician, was given amikacin and Zyvox. She is currently feeling better. Repeat ultrasound of the bladder showed that bladder is empty. However, she remains feeling that she is still having urgency and frequency. The patient who does have underlying history of obesity, hypertension, chronic atrial fibrillation, chronic kidney disease, morbidly obese patient, congestive heart failure, osteoarthritis, multiple skin wound, decubitus ulcer stage 2 in her sacral area, diabetes mellitus, colonization, multidrug resistant. PAST SURGICAL HISTORY: Hysterectomy, bilateral knee surgery, bilateral knee total replacement, hematoma, left great toe amputation. SOCIAL HISTORY: There is no smoking, drug abuse, or alcohol abuse. FAMILY HISTORY: Significant for congestive heart failure, COPD. ALLERGIES: MORPHINE. HOME MEDICATION: Also reviewed. PAST MEDICAL HISTORY: Otherwise as above. PHYSICAL EXAMINATION: GENERAL: She is currently alert, oriented, not in acute distress. VITAL SIGNS: Stable, currently afebrile. HEENT: She is not icteric. NECK: Supple. CHEST: Clear. COR: S1 and S2. No S3, S4, or murmur. ABDOMEN: Soft, obese. EXTREMITIES: No edema. SKIN: No rash. IMPRESSION: 1. Concerned about urinary tract infection/cystitis. Agree with urine culture and blood cultures. The patient . We will put her on meropenem for the time being. 2. Anemia on admission. 3. Morbidly obese patient. 4. Acute on chronic kidney disease. 5. We will follow with you. Discussed with the patient. Discussed with medical team. MD JASKARAN Lane/NARGIS /[id number]
[2019-07-23] MEDS: TRAZODONE HCL 50 MG TAB PO SCH (21:17)
[2019-07-24] VITALS (8 sets, daily range): BP systolic 102–126; BP diastolic 54–95
--- NOTE | 2019-07-24 00:21 | NUR ---
Landaverde care given.repositioned.dressing to left knee is in place.getting nasal cannula 2 litre o2.keep monitor the patient.
[2019-07-24] MEDS: MEROPENEM 500MG/ NS 50ML 50 ML IV SCH ×2 (04:39→16:39)
[2019-07-24 06:15] LABS: ALBUMIN 3.2 g/dL (3.5-5.0); CALCIUM 9.7 mg/dL (8.4-10.2); CREATININE, SERUM 1.71 mg/dL (0.57-1.11); PHOSPHORUS 3.3 MG/DL (2.3-4.7)
[2019-07-24 06:40] LABS: INR 1.75; PROTHROMBIN TIME 21.7 seconds (11.9-14.5)
--- NOTE | 2019-07-24 06:54 | NUR ---
Bed side shift report given to oncoming Rn stable condition.
--- NOTE | 2019-07-24 06:55 | NUR ---
received bedside shift report from PM nurse; pt in stable condition.
[2019-07-24] MEDS: INSULIN LISPRO 100 UNIT/1 ML 3ML VIAL SQ SCH ×4 (07:30→19:54)
--- NOTE | 2019-07-24 08:13 | NUR ---
pt accidentally dislodged IV; bleeding controlled.
[2019-07-24] MEDS: FAMOTIDINE 20 MG TAB PO SCH ×2 (08:34→16:41)
[2019-07-24] MEDS: AMIODARONE HCL 200 MG TAB PO SCH ×2 (08:34→16:41)
[2019-07-24] MEDS: WARFARIN SOD 5 MG TAB PO SCH (08:34)
[2019-07-24] MEDS: DOCUSATE SODIUM 100 MG CAP PO SCH ×2 (08:34→16:41)
[2019-07-24] MEDS: PANTOPRAZOLE SOD 40 MG TABEC PO SCH (08:35)
[2019-07-24] MEDS: METOPROLOL TARTRATE 50 MG TAB PO SCH (08:35)
[2019-07-24] MEDS: LEVOTHYROXINE SODIUM 112 MCG TAB PO SCH (08:35)
[2019-07-24] MEDS: DULOXETINE HCL 30 MG DELAYED RELEASE PO SCH ×2 (08:35→16:41)
[2019-07-24] MEDS: METOPROLOL SUCCINATE 50 MG TAB XL PO SCH (08:37)
[2019-07-24] MEDS: DILTIAZEM HCL 60 MG TAB PO SCH (08:40)
[2019-07-24] MEDS: COLLAGENASE 5 GM TUBE TP SCH (08:48)
[2019-07-24] MEDS ORDERED: COLLAGENASE OINTMENT 30 GM TUBE TP SCH (09:00)
--- NOTE | 2019-07-24 09:54 | Progress Note ---
DATE: Infectious Disease Progress Note SUBJECTIVE: The patient seen and evaluated. The available labs and notes reviewed. Discussed with the attending's team, Urology notes noted. REVIEW OF SYSTEMS: Patient states that her bladder sensation of fullness and irritation had resolved and she feels much better compared with yesterday. Refused nausea, vomiting, fever, chills, chest pain, shortness of breath, cough, headache and dysuria today. OBJECTIVE: VITAL SIGNS: Temperature is 98.4, patient's maximum temperature was 99.2 since admission, pulse is 91, respirations 18, and blood pressure 126/79. GENERAL: Alert and oriented, morbidly obese, comfortable in bed, no acute distress. CV: S1 and S2. CHEST: Equal expansion. Clear to auscultation. No acute distress. ABDOMEN: Soft, obese, nontender. HEENT: Moist. No pallor. No JVD. EXTREMITIES: Weak. No significant edema. MEDICATIONS: Medication list reviewed as far as Infectious Disease point of view, patient is on meropenem. LABORATORY STUDIES: White count of 7.58, hemoglobin 7.5, platelet 236. Sodium 137, potassium 4, creatinine of 1.71. Serology: COVID-19 PCR on 07/23/2019 is still pending. Microbiology; blood cultures negative 24 hours and urine culture is contaminated. RADIOLOGY STUDIES: No new radiology studies available. ASSESSMENT AND PLAN: 1. This is a pleasant 64-year-old female came with possibility of urinary tract infection with multidrug resistant pathogen. She was originally presented with complaints of not being able to urinate, had a recent hospitalization with MDR infection. Urine culture is contaminated. Blood cultures negative. Overall feels better clinically. 2. Morbid obesity. 3. Anemia. 4. Debility. 5. Acute on chronic kidney disease. 6. Hypothyroidism. Continue with meropenem. Discussed with Dr. Jacobs in details. Please refer to chart for more information. The patient remains with Landaverde cath. MD JASKARAN Lane/MODL /[id number]
--- NOTE | 2019-07-24 10:11 | NUR ---
no documentation found concerning pt's john placement and output upon initial arrival to ER; spoke with ER nurse who found MD's T-sheet which states "250 cc's urine output s/p john insertion." will inform Dr. Sarmiento.
[2019-07-24] MEDS ORDERED: BISACODYL 5 MG TAB EC PO ONE (10:35)
[2019-07-24] MEDS ORDERED: ONDANSETRON HCL 4 MG ORAL DISINTEGRATING TAB PO PRN (11:00)
[2019-07-24 11:27] LABS: BASOPHILS # (AUTO) 0.1 (0.0-0.1); BASOPHILS % 0.9 % (0.0-1.0); EOSINOPHILS # (AUTO) 0.3 (0.0-0.4); EOSINOPHILS % 4.4 % (0.0-6.0); HEMATOCRIT 27.8 % (34.2-44.1); HEMOGLOBIN 7.6 g/dL (12.0-16.0); LYMPHOCYTES # (AUTO) 0.9 (1.0-3.2); LYMPHOCYTES % 12.5 % (18.0-39.1); MEAN CORPUSCULAR HEMOGLOBIN 22.6 pg (28-32); MEAN CORPUSCULAR HGB CONC 27.3 g/dL (31-35); MEAN CORPUSCULAR VOLUME 82.5 fL (81-99); MONOCYTES # (AUTO) 1.1 (0.2-0.8); MONOCYTES % 14.6 % (4.4-11.3); NEUTROPHILS # (AUTO) 5.1 (2.1-6.9); NEUTROPHILS % 67.2 % (38.7-80.0); PLATELET COUNT 250 x10e3/uL (140-360); RED BLOOD COUNT 3.37 x10e6/uL (3.6-5.1); RED CELL DISTRIBUTION WIDTH 20.6 % (11.7-14.4)
--- NOTE | 2019-07-24 14:55 | NUR ---
SPOKE WITH PT WHOM WANTS SAME HOME HEALTH [facility], SIGNED CHOICE AND FILED IN CHART, FAXED CLINICALS TO [phone]. OFFICE NUMBER IS [phone]. CALLED THEY HAVE NOT RECEIVED FAX YET WILL CALL BACK TO CONFIRM RECEIPT. SAW NOT THAT PT REQUESTING BED SIDE COMMODE, PER PRIOR STAY NOTES PT HAS A 3 IN ONE SO ALREADY HAS. NO DME ORDERED.
--- NOTE | 2019-07-24 19:00 | NUR ---
RECEIVED THE PATIENT IN REPORT.LYEING IN THE BED.STABLE CONDITION.
[2019-07-24] MEDS: TRAZODONE HCL 50 MG TAB PO SCH (20:47)
--- NOTE | 2019-07-24 20:52 | NUR ---
Assessment done.no resp.distress.no pain voiced.bed bound.repositioned.pericare given.iv left forarm is patent.bed locked and in lowest position.phone and call light within reach.instructed to call for assistance as needed.
[2019-07-25] VITALS: BP 100/57
[2019-07-25 04:00] VITALS: BP 93/67
[2019-07-25] MEDS: MEROPENEM 500MG/ NS 50ML 50 ML IV SCH ×2 (05:10→16:13)
[2019-07-25 05:41] LABS: BASOPHILS # (AUTO) 0.1 (0.0-0.1); BASOPHILS % 0.7 % (0.0-1.0); EOSINOPHILS # (AUTO) 0.3 (0.0-0.4); EOSINOPHILS % 3.9 % (0.0-6.0); HEMATOCRIT 26.7 % (34.2-44.1); HEMOGLOBIN 7.7 g/dL (12.0-16.0); LYMPHOCYTES # (AUTO) 0.7 (1.0-3.2); LYMPHOCYTES % 10.4 % (18.0-39.1); MEAN CORPUSCULAR HEMOGLOBIN 23.1 pg (28-32); MEAN CORPUSCULAR HGB CONC 28.8 g/dL (31-35); MEAN CORPUSCULAR VOLUME 79.9 fL (81-99); MONOCYTES # (AUTO) 0.8 (0.2-0.8); MONOCYTES % 11.5 % (4.4-11.3); NEUTROPHILS # (AUTO) 4.9 (2.1-6.9); NEUTROPHILS % 73.1 % (38.7-80.0); PLATELET COUNT 233 x10e3/uL (140-360); RED BLOOD COUNT 3.34 x10e6/uL (3.6-5.1); RED CELL DISTRIBUTION WIDTH 20.2 % (11.7-14.4)
[2019-07-25 06:02] LABS: ANION GAP 14.7 mmol/L (8-16); CALCIUM 9.5 mg/dL (8.4-10.2); CREATININE, SERUM 1.71 mg/dL (0.57-1.11); MAGNESIUM 1.7 MG/DL (1.3-2.1); POTASSIUM 3.7 mmol/L (3.5-5.1)
--- NOTE | 2019-07-25 07:00 | NUR ---
RECEIVED PATIENT RESTING IN BED NO S/S OF DISTRESS. BED LOW, WHEELS LOCKED, SIDE RAILS X2. CALL LIGHT IN REACH WILL CONTINUE TO MONITOR PATIENT.
--- NOTE | 2019-07-25 07:00 | NUR ---
Bed side shift report given to oncoming Rn.stable condition.
[2019-07-25] MEDS: INSULIN LISPRO 100 UNIT/1 ML 3ML VIAL SQ SCH ×4 (07:30→20:14)
[2019-07-25 08:07] LABS: PLATELET ESTIMATE ADEQUATE; PLATELET MORPHOLOGY COMMENT NORMAL; RBC MORPHOLOGY COMMENT ABNORMAL
[2019-07-25 08:09] VITALS: BP 114/70
[2019-07-25 08:09] LABS: HYPOCHROMASIA SLIGHT; OVALOCYTES FEW
[2019-07-25] MEDS: PANTOPRAZOLE SOD 40 MG TABEC PO SCH (08:09)
[2019-07-25] MEDS: DOCUSATE SODIUM 100 MG CAP PO SCH ×2 (08:09→16:13)
[2019-07-25] MEDS: LEVOTHYROXINE SODIUM 112 MCG TAB PO SCH (08:09)
[2019-07-25] MEDS: AMIODARONE HCL 200 MG TAB PO SCH ×2 (08:09→16:13)
[2019-07-25] MEDS: DILTIAZEM HCL 60 MG TAB PO SCH (08:09)
[2019-07-25] MEDS: DULOXETINE HCL 30 MG DELAYED RELEASE PO SCH ×2 (08:09→16:13)
[2019-07-25] MEDS: FAMOTIDINE 20 MG TAB PO SCH ×2 (08:09→16:12)
[2019-07-25] MEDS: METOPROLOL TARTRATE 50 MG TAB PO SCH (08:09)
[2019-07-25] MEDS: WARFARIN SOD 5 MG TAB PO SCH (08:09)
[2019-07-25 08:10] LABS: ANISOCYTOSIS MODERATE
[2019-07-25] MEDS: COLLAGENASE 5 GM TUBE TP SCH (08:10)
[2019-07-25] MEDS: METOPROLOL SUCCINATE 50 MG TAB XL PO SCH (08:10)
[2019-07-25 08:11] LABS: MICROCYTOSIS SLIG
[2019-07-25 08:54] VITALS: BP 114/70
[2019-07-25] MEDS ORDERED: FLOMAX0.4 MG PO (09:05)
[2019-07-25] MEDS ORDERED: CIPRO500 MG PO (09:05)
[2019-07-25] MEDS ORDERED: TAMSULOSIN HCL 0.4 MG CAP PO SCH (09:15)
--- NOTE | 2019-07-25 09:48 | Progress Note ---
DATE: Infectious Disease Progress Note SUBJECTIVE: The patient is seen and evaluated. Available labs and notes reviewed. Discussed with Dr. Jacobs in details. REVIEW OF SYSTEMS: No nausea, vomiting, fever, chills, chest pain, shortness of breath, headache, dysuria or polyuria. OBJECTIVE: VITAL SIGNS: Temperature 96.8, pulse 103, respiration 18, and blood pressure 114/70. GENERAL: Alert and oriented, no acute distress CV: S1 and S2. CHEST: Equal expansion. Clear to auscultation. No acute distress. ABDOMEN: Soft and nontender. No distention. Morbidly obese. EXTREMITIES: No significant edema. Moves all. No acute distress. MEDICATION LIST: Reviewed as far as Infectious Disease point of view. Patient is on meropenem. LABORATORY STUDIES: White count of 6.7, hemoglobin 7.7, platelet 233. Sodium 138, potassium 3.7, creatinine 1.71. Serology: COVID-19 PCR negative on 07/23/2019. Microbiology: Blood culture negative. Urine culture from 07/22/2019 is contaminated. Urine culture from 07/24/2019 is pending. RADIOLOGY STUDIES: No new radiology studies available. ASSESSMENT AND PLAN: 1. A 64-year-old female with complication of urinary tract system with urinary tract infection, history of an MDR pathogen. Recheck urine culture here is contaminated. We ordered to recheck again, which is pending. Blood culture was negative. 2. Morbid obesity. 3. Debility. 4. Anemia. 5. Acute on chronic kidney disease. 6. Hypothyroidism. 7. Prescription is in chart for Cipro by mouth renally dosed at 500 mg p.o. daily for 7 days. Follow up with urine culture as an outpatient. Patient cleared by Urology for discharge. Please refer to chart for more information. MD JASKARAN Lane/NARGIS /[id number]
--- NOTE | 2019-07-25 11:35 | NUR ---
REMOVED PATIENTS ALLEN. CATHETER TIP INTACT ON REMOVAL. PATIENT DUE TO VOID.
[2019-07-25 11:49] VITALS: BP 112/63
--- NOTE | 2019-07-25 13:17 | NUR ---
SPOKE WITH PT REGARDING 3 IN 1 COMMODE; SHE STATES THE 3 IN 1 SHE HAS WAS HER FATHER'S ; REQUESTING ME TO ORDER ONE CHOICE LETTER SIGNED FOR [facility] COPY OF CHOICE LETTR GIVEN TO PT SPOKE WITH KAMRON MERCADO WITH [facility] WHO CONFIRMS THEY ARE IN NETWORK WITH PT'S INSURANCE FAXED CLINICAL INFORMATION AND ORDER TO [phone] CONFIRMATION REC'D EXPLAINED TO PT THAT 3 IN 1 WILL TAKE A FEW DAYS TO BE DELIVERED PT UNDERSTANDS
[2019-07-25] MEDS: EPOETIN ALFA-EPBX 10,000 UNIT/ML VIAL SC SCH (14:06)
[2019-07-25] MEDS ORDERED: HYDRALAZINE HCL 25 MG TAB PO SCH (15:00)
[2019-07-25] MEDS ORDERED: POTASSIUM CHLORIDE 20MEQ/100ML 200 ML IV ONE (15:00)
[2019-07-25 16:16] VITALS: BP 122/91
--- NOTE | 2019-07-25 18:10 | NUR ---
PAGED DR. EDWARDS WITH BLADDER SCAN RESULTS AWAITING CALL BACK AT THIS TIME.
--- NOTE | 2019-07-25 18:46 | NUR ---
SPOKE WITH DR. JERRY ZURITA TO PLACE ALLEN.
--- NOTE | 2019-07-25 20:05 | NUR ---
16FR ALLEN CATHETER PLACED PER ASEPTIC TECHNIQUE, PATIENT TOLERATED WELL.
[2019-07-25] MEDS: TRAZODONE HCL 50 MG TAB PO SCH (20:32)
[2019-07-26] MEDS ORDERED: LEVOTHYROXINE SODIUM 75 MCG TAB PO SCH (06:00)
--- NOTE | 2019-07-26 06:17 | Discharge Summary ---
ADMISSION DIAGNOSES: 1. Acute urinary tract infection, present on admission. 2. Urinary retention. 3. Chronic kidney disease 3. 4. Type 2 diabetes with chronic kidney disease 3. 5. Hypertension with chronic kidney disease 3 and chronic diastolic congestive heart failure. 6. Chronic diastolic congestive heart failure. 7. Chronic atrial fibrillation. 8. Hypothyroidism. 9. Depression. 10. Super morbid obesity with BMI of 59.55. 11. Osteoarthritis. 12. Ambulatory dysfunction with history of fall. DISCHARGE DIAGNOSES: 1. Acute urinary tract infection, present on admission. 2. Urinary retention. 3. Chronic kidney disease 3. 4. Type 2 diabetes with chronic kidney disease 3. 5. Hypertension with chronic kidney disease 3 and chronic diastolic congestive heart failure. 6. Chronic diastolic congestive heart failure. 7. Chronic atrial fibrillation. 8. Hypothyroidism. 9. Depression. 10. Super morbid obesity with BMI of 59.55. 11. Osteoarthritis. 12. Ambulatory dysfunction with history of fall. HISTORY: Hypertension, chronic AFib, CKD-3, chronic diastolic CHF, osteoarthritis, type 2 diabetes, depression, frequent UTI, hypothyroidism, ambulatory dysfunction, CAD, fall. SURGICAL HISTORY: Hysterectomy, bilateral knee surgery, left great toe amputation, left knee hematoma removal. SOCIAL HISTORY: Noncontributory. FAMILY HISTORY: The patient's mother and father both had diabetes. HOSPITAL COURSE: A 64-year-old female has been unable to urinate for one day. She denies painful urination, but was had generalized swelling. On admission, UA appeared that the patient had a UTI. The initial urine culture came back contaminated. The patient's wbc remained within normal limits and the patient remained afebrile. Urology was consulted due to presumed urinary retention. Landaverde was placed. Since the culture was contaminated, Infectious Disease recommended discharging the patient home on Cipro. The patient's urologist ordered Flomax and attempted to remove the Landaverde prior to discharge. The patient was unable to pee on her own once the Landaverde was removed. So prior to discharge, the Landaverde was replaced and the patient was sent home with a Landaverde. She will follow up for any urological studies and primary care in 1 to 2 weeks. The patient understands discharge instructions and agrees to plan. Per Physical therapy recommendation, the patient is safe to discharge home with PT. According to case management, the patient relies on her friend to do a lot for her. They believe that she cannot walk and does not bear weight, but after her physical therapy evaluation that was proven otherwise. Dictated by Deja Adame, SCOUT SNIPER MD GERARD Lion/MODL /[id number]
== END 2019-07-25 21:45 | disposition home or self-care (01) | DRG 690 ==
LOC: ER 16:18 → ERHOLD 19:24 → MED/SURG 21:41
PROVIDERS: ADMIT Internal Medicine; ATTEND Internal Medicine
DX: N30.00 Acute cystitis without hematuria (principal); I50.32 Chronic diastolic (congestive) heart failure; I48.20 Chronic atrial fibrillation, unspecified; Z68.43 Body mass index [BMI] 50.0-59.9, adult; I13.0 Hypertensive heart and chronic kidney disease with heart failure and stage 1 through stage 4 chronic kidney disease, or unspecified chronic kidney disease; E66.01 Morbid (severe) obesity due to excess calories; D63.1 Anemia in chronic kidney disease; N18.3 Chronic kidney disease, stage 3 (moderate); E11.22 Type 2 diabetes mellitus with diabetic chronic kidney disease; E11.51 Type 2 diabetes mellitus with diabetic peripheral angiopathy without gangrene; E03.9 Hypothyroidism, unspecified; F32.9 Major depressive disorder, single episode, unspecified; M19.90 Unspecified osteoarthritis, unspecified site; N32.81 Overactive bladder; E27.9 Disorder of adrenal gland, unspecified; N39.41 Urge incontinence; E86.0 Dehydration; L89.152 Pressure ulcer of sacral region, stage 2; Z96.653 Presence of artificial knee joint, bilateral; Z89.412 Acquired absence of left great toe; Z82.49 Family history of ischemic heart disease and other diseases of the circulatory system; Z83.6 Family history of other diseases of the respiratory system; Z88.5 Allergy status to narcotic agent; Z88.0 Allergy status to penicillin; Z88.2 Allergy status to sulfonamides; Z88.8 Allergy status to other drugs, medicaments and biological substances; R53.81 Other malaise; B96.20 Unspecified Escherichia coli [E. coli] as the cause of diseases classified elsewhere; Z91.81 History of falling
CPT/HCPCS: 36415; 80048; 80053; 81001; 82040; 82948; 83036; 83735; 83970; 84100; 85025; 85610; 87040; 87086; 87635; 93005; 96360; 97139; 99251; 99284; J2020; J7030; J7040

== ENCOUNTER 2019-08-01 12:54 | Observation (INO) | payer MEDICARE, OTHER ==
[~2019-08-01] VITALS: Ht 180.3 cm; Wt 149.7 kg
[~2019-08-01 12:54] MED LIST changes: +CIPRO500 MG PO; +FLOMAX0.4 MG PO; +METOPROLOL SUCC50 MG PO; +PENTAZOCINE-NA1 EACH PO; +PROTONIX20 MG PO
[2019-08-01 14:02] LABS: CLARITY,URINE CLEAR (CLEAR); COLOR,URINE YELLOW (YELLOW); LEUKOCYTE ESTERASE ,URINE NEGATIVE (NEGATIVE); NITRITE,URINE NEGATIVE (NEGATIVE); PROTEIN,URINE DIPSTICK NEGATIVE (NEGATIVE)
[2019-08-01 14:03] LABS: BILIRUBIN,URINE NEGATIVE (NEGATIVE); KETONES,URINE NEGATIVE (NEGATIVE); URINE UROBILINOGEN 0.2 mg/dL (0.2 - 1)
--- NOTE | 2019-08-01 14:08 | Diagnostic Imaging Report ---
EXAMINATION: CHEST SINGLE (PORTABLE) INDICATION: Shortness of breath COMPARISON: Chest radiograph 06/05/2019 FINDINGS: LINES/TUBES:EKG leads overlie the chest. LUNGS:The lungs are moderately inflated. There is perihilar fullness and indistinctness of the pulmonary vasculature. PLEURA:No pleural effusion or pneumothorax. MEDIASTINUM:The cardiomediastinal silhouette appears unchanged in size and shape. BONES/SOFT TISSUES:No acute osseous injury. ABDOMEN:No free air under the diaphragm. IMPRESSION: Cardiomegaly and central pulmonary vascular congestion. Signed by: Abimbola Garcia MD on 08/01/2019 1:58 PM
[2019-08-01 14:16] LABS: AMORPHOUS SEDIMENT,URINE FEW (FEW); BACTERIA,URINE MODERATE /HPF; EPITHELIAL CELLS,URINE FEW /LPF
--- NOTE | 2019-08-01 14:21 | Emergency Department Note ---
History of Present Illnes History of Present Illness Chief Complaint: General Medicine Complaints History of Present Illness This is a 64 year old female . Historian: Patient Arrival Mode: [facility] Hydrometer Tester Required: No Onset (how long ago): day(s) Severity: moderate Onset quality: gradual Duration (how long): day(s) Timing of current episode: constant Progression: worsening Chronicity: chronic Relieving factors: none Exacerbating factors: movement Associated symptoms: denies other symptoms Treatments prior to arrival: none (ALEJO SOTO NP) Past Medical/Family History Physician Review I have reviewed the patient's past medical and family history. Any updates have been documented here. (ALEJO SOOT NP) Past Medical History Recent Fever: No Clinical Suspicion of Infectio: No New/Unexplained Change in Ment: No Past Medical History: Hypertension, Diabetes, Asthma, A-Fib, ESRD Past Surgical History: Hysterectomy Other Surgery: KNEE SURGERY (ALEJO SOTO NP) Social History Smoking Cessation: Never Smoker Alcohol Use: None Any Illegal Drug Use: No TB Exposure/Symptoms: No Physically hurt or threatened: No (ALEJO SOTO NP) Family History Family history of heart diseas: Yes (ALEJO SOTO NP) Other Last Tetanus: UTD Any Pre-Existing Lines (PICC,: No Is patient up to date on immun: Yes (ALEJO SOTO NP) Review of Systems ROS Narrative PATIENT IN FROM HOME WITH COMPLAINTS OF SHORTNESS OF BREATH ON EXERTION AND FLUID RETENTION X 2 DAYS; PATIENT WAS SEEN HERE ON TUESDAY AND HAD A CATHETER PLACED FOR URINARY RETENTION, AND ALSO WITH A FALL ON TUESDAY. PATIENT ON HOME O2, WITH A HISTORY OF CHF AND COPD. PATIENT APPEARS IN NO DISTRESS, RESP NONLABORED. CALLED DR ANDREAS CARO WHO ADVISED HER TO COME TO THE ER FOR FURTHER EVALUATION. PATIENT STATES THAT SOB IS CHRONIC AND WORSENING OVER PAST [address] CABRERA ALSO AT BEDSIDE TO ASSESS THE PATIENT (ALEJO SOTO NP) Review of Systems Constitutional: weakness EENTM: no symptoms Cardiovascular: no symptoms Respiratory: dyspnea, dyspnea on exertion Gastrointestinal: no symptoms Genitourinary: no symptoms (PATIENT HAS INDWELLING ALLEN CATHETER) Musculoskeletal: no symptoms Integumentary: no symptoms Neurological: no symptoms Psychological: no symptoms Endocrine: no symptoms Hematological/Lymphatic: no symptoms Review of other systems All other systems reviewed and negative. (ALEJO SOTO NP) Physical Exam Related Data Allergies: Coded Allergies: Penicillins (Verified Allergy, Mild, 07/22/19) Sulfa (Sulfonamide Antibiotics) (Verified Allergy, Mild, 07/20/07) codeine (Verified Allergy, Mild, 07/20/07) fentanyl (Verified Allergy, Mild, 07/20/07) meperidine (Verified Allergy, Mild, 07/20/07) morphine (Verified Allergy, Mild, 07/20/07) Hpfqonc-Prp-Kxg Reductase Inhibitor (Verified Allergy, Unknown, 05/13/19) acetaminophen (Verified Allergy, Unknown, 05/13/19) oxycodone (Verified Allergy, Unknown, 05/13/19) tramadol (Verified Allergy, Unknown, 05/13/19) Vital signs reviewed: Yes (ALEJO SOTO NP) Physical Exam CONSTITUTIONAL Constitutional: well-developed, well-nourished, morbidly obese HENT HENT: normocephalic, atraumatic HENT - Ear: left TM normal, right TM normal EYES Eyes: PERRL, conjunctivae normal NECK Neck: ROM normal, supple PULMONARY Pulmonary: other (DECREASED BREATH SOUNDS THROUGHOUT) CARDIOVASCULAR Cardiovascular: irregular rhythm, capillary refill normal, normal rate GASTROINTESTINAL Abdominal: soft, nontender, bowel sounds normal GENITOURINARY SKIN Skin: warm, dry MUSCULOSKELETAL Musculoskeletal: ROM normal NEUROLOGICAL Neurological: alert, oriented x 3 PSYCHOLOGICAL Psychiatric/behavioral: mood/affect normal, behavior normal, thought content normal, judgement normal (ALEJO SOTO NP) Results Laboratory Laboratory Laboratory Tests Test 08/01/19 13:46 08/01/19 13:38 White Blood Count 10.05 x10e3/uL (4.8-10.8) Red Blood Count 3.65 x10e6/uL (3.6-5.1) Hemoglobin 8.0 g/dL (12.0-16.0) Hematocrit 28.8 % (34.2-44.1) Mean Corpuscular Volume 78.9 fL (81-99) Mean Corpuscular Hemoglobin 21.9 pg (28-32) Mean Corpuscular Hemoglobin Concent 27.8 g/dL (31-35) Red Cell Distribution Width 20.4 % (11.7-14.4) Platelet Count 249 x10e3/uL (140-360) Neutrophils (%) (Auto) 77.9 % (38.7-80.0) Lymphocytes (%) (Auto) 6.5 % (18.0-39.1) Monocytes (%) (Auto) 11.2 % (4.4-11.3) Eosinophils (%) (Auto) 3.4 % (0.0-6.0) Basophils (%) (Auto) 0.5 % (0.0-1.0) Neutrophils # (Auto) 7.8 (2.1-6.9) Lymphocytes # (Auto) 0.7 (1.0-3.2) Monocytes # (Auto) 1.1 (0.2-0.8) Eosinophils # (Auto) 0.3 (0.0-0.4) Basophils # (Auto) 0.1 (0.0-0.1) Absolute Immature Granulocyte (auto 0.05 x10e3/uL (0-0.1) Prothrombin Time 24.0 seconds (11.9-14.5) Prothromb Time International Ratio 1.99 Activated Partial Thromboplast Time 42.2 seconds (23.8-35.5) Sodium Level 137 mmol/L (136-145) Potassium Level 3.3 mmol/L (3.5-5.1) Chloride Level 97 mmol/L (98-107) Carbon Dioxide Level 31 mmol/L (22-29) Anion Gap 12.3 mmol/L (8-16) Blood Urea Nitrogen 19 mg/dL (7-26) Creatinine 1.45 mg/dL (0.57-1.11) Estimat Glomerular Filtration Rate 36 ML/MIN (60-) BUN/Creatinine Ratio 13 (6-25) Glucose Level 100 mg/dL (74-118) Calcium Level 8.7 mg/dL (8.4-10.2) Total Bilirubin 1.2 mg/dL (0.2-1.2) Aspartate Amino Transf (AST/SGOT) 29 IU/L (5-34) Alanine Aminotransferase (ALT/SGPT) 47 IU/L (0-55) Alkaline Phosphatase 107 IU/L (40-150) Creatine Kinase 50 IU/L (29-168) Creatine Kinase MB 2.20 ng/mL (0-5.0) Troponin I 0.028 ng/mL (0-0.300) B-Type Natriuretic Peptide 826.2 pg/mL (0-100) Total Protein 7.0 g/dL (6.5-8.1) Albumin 3.3 g/dL (3.5-5.0) Globulin 3.7 g/dL (2.3-3.5) Albumin/Globulin Ratio 0.9 (0.8-2.0) Urine Color Yellow (YELLOW) Urine Clarity Clear (CLEAR) Urine pH 5.5 (5 - 7) Urine Specific [place] 1.020 (1.010-1.025) Urine Protein Negative (NEGATIVE) Urine Glucose (UA) Negative (NEGATIVE) Urine Ketones Negative (NEGATIVE) Urine Blood 2+ (NEGATIVE) Urine Nitrite Negative (NEGATIVE) Urine Bilirubin Negative (NEGATIVE) Urine Urobilinogen 0.2 mg/dL (0.2 - 1) Urine Leukocyte Esterase Negative (NEGATIVE) Urine RBC 6-10 /HPF (0-5) Urine WBC None /HPF (0-5) Urine Epithelial Cells Few /LPF (NONE) Urine Amorphous Sediment Few (FEW) Urine Bacteria Moderate /HPF (NONE) Lab results reviewed: Yes (ALEJO SOTO NP) Imaging Imaging results reviewed: Yes (ALEJO SOTO NP) Procedures 12 Lead ECG Interpretation Hydrometer Tester: Interpreted by ED physician (DR CABRERA) Date: August 01, 2019 Time: 13:15 Rhythm: atrial fibrillation BMP: 90 (ALEJO SOTO NP) Critical Care Time Subsequent provider I assumed direction of critical care for this patient from another provider of my specialty. (ALEJO SOTO NP) Assessment & Plan Assessment & Plan Problems: (1) Anemia, chronic disease (2) CHF (congestive heart failure) (ALEJO SOTO NP) Reassessment Reassessment time: 14:55 Reassessment PATIENT RESTING IN NAD. AWAITING ALL RESULTS 1519- ALL RESULTS DISCUSSED WITH DR CABRERA, WILL ADMIT TO DR QUINTEROS. UPDATED PATIENT AND ALL QUESTIONS ANSWERED (ALEJO SOTO NP) Depart Disposition: ADMITTED Home Meds Active Scripts Tamsulosin Hcl* (FLOMAX*) 0.4 Mg Cap, 0.4 MG PO DAILY, #90 TAKE 30 MINS AFTER BREAKFAST Prov:ALLYN FIELDS NP 07/25/19 Ciprofloxacin Hcl (CIPRO) 500 Mg Tablet, 500 MG PO DAILY, #7 TAB Prov:ALLYN FIELDS NP 07/25/19 Reported Medications Pantoprazole Sodium (PROTONIX) 20 Mg Tablet.dr, 40 MG PO DAILY, #30 TAB 07/22/19 Metoprolol Succinate (METOPROLOL SUCCINATE) 50 Mg Tab.er.24h, 100 MG PO DAILY, MG 07/22/19 Pentazocine Hcl/Naloxone Hcl (PENTAZOCINE-NALOXONE TABLET) 1 Each Tablet, 1 TAB PO Q6H PRN for MODERATE PAIN (4-6), TAB 07/22/19 Warfarin Sodium (COUMADIN) 5 Mg Tablet, 5 MG PO DAILY, #14 06/12/19 Trazodone Hcl (TRAZODONE HCL) 50 Mg Tablet, 100 MG PO HS, #30 TAB 06/12/19 Levothyroxine Sodium (LEVOTHYROXINE SODIUM) 112 Mcg Tablet, 150 MCG PO DAILY, #30 TAB 06/12/19 Duloxetine Hcl (CYMBALTA) 30 Mg Capsule.dr, 30 MG PO BID, #30 CAP 06/12/19 Cyclobenzaprine Hcl (FLEXERIL) 5 Mg Tablet, 10 MG PO Q8H PRN for MODERATE PAIN (4-6) 06/12/19 Amiodarone Hcl (AMIODARONE HCL) 200 Mg Tablet, 200 MG PO BID 06/12/19 Furosemide (FUROSEMIDE) 40 Mg Tablet, 40 MG PO Daily, #30 TAB 05/14/19 Diltiazem Hcl (CARDIZEM) 60 Mg Tablet, 30 MG PO DAILY 05/14/19 Attestation Provider Attestation Pt seen and examined with outsole cementer, pt presents for SOB Exam as follows - morbid obesity, appears SOB, L-decr BS's throughout, bibasilar rales, 3+ LE edema I agree with outsole cementer assessment and disposition.. I spoke with Dr Quinteros for admission (Mckinney pt) and Dr Liriano as web development consultant (CYRIL CABRERA MD) ALEJO SOTO NP August 01, 2019 13:14 CYRIL CABRERA MD August 01, 2019 15:26
[2019-08-01 14:31] LABS: BASOPHILS # (AUTO) 0.1 (0.0-0.1); BASOPHILS % 0.5 % (0.0-1.0); EOSINOPHILS # (AUTO) 0.3 (0.0-0.4); EOSINOPHILS % 3.4 % (0.0-6.0); HEMATOCRIT 28.8 % (34.2-44.1); LYMPHOCYTES # (AUTO) 0.7 (1.0-3.2); LYMPHOCYTES % 6.5 % (18.0-39.1); MEAN CORPUSCULAR HEMOGLOBIN 21.9 pg (28-32); MEAN CORPUSCULAR HGB CONC 27.8 g/dL (31-35); MEAN CORPUSCULAR VOLUME 78.9 fL (81-99); MONOCYTES # (AUTO) 1.1 (0.2-0.8); MONOCYTES % 11.2 % (4.4-11.3); NEUTROPHILS # (AUTO) 7.8 (2.1-6.9); NEUTROPHILS % 77.9 % (38.7-80.0); PLATELET COUNT 249 x10e3/uL (140-360); RED BLOOD COUNT 3.65 x10e6/uL (3.6-5.1); RED CELL DISTRIBUTION WIDTH 20.4 % (11.7-14.4)
[2019-08-01 14:42] LABS: INR 1.99
[2019-08-01 14:43] LABS: PARTIAL THROMBOPLASTIN TIME 42.2 seconds (23.8-35.5)
[2019-08-01 14:49] LABS: ALBUMIN 3.3 g/dL (3.5-5.0); ALBUMIN/GLOBULIN RATIO 0.9 (0.8-2.0); ANION GAP 12.3 mmol/L (8-16); CALCIUM 8.7 mg/dL (8.4-10.2); CREATININE, SERUM 1.45 mg/dL (0.57-1.11); POTASSIUM 3.3 mmol/L (3.5-5.1)
[2019-08-01 14:55] LABS: CREATINE KINASE MB 2.2 ng/mL (0-5.0)
[2019-08-01] MEDS ORDERED: FUROSEMIDE INJ 10 MG/ML 2 ML VIAL IV ONE (15:30)
[2019-08-01] MEDS ORDERED: ONDANSETRON HCL INJ 2MG/ML 2ML 2 MG/ML VIAL IV PRN ×2 (15:30→18:15)
[2019-08-01] MEDS ORDERED: SODIUM CHLORIDE FLUSH 10 ML SYR INJ PRN (15:30)
[2019-08-01] MEDS ORDERED: ZOLPIDEM TARTRATE 5 MG TAB PO PRN (21:00)
--- NOTE | 2019-08-01 23:46 | Consultation ---
DATE OF CONSULTATION: Pulmonary Critical Care Consultation CHIEF COMPLAINT: Dyspnea, high blood pressure, and headache. HISTORY OF PRESENT ILLNESS: The patient is a 64-year-old woman. She has a history of chronic renal failure stage 3 as well as recurrent urinary tract infections and hypertension. She also has a history of diastolic heart failure. She was following with Dr. Sahni of Cardiology for her blood pressure and diastolic heart disease. She was recently hospitalized at [facility] earlier this month with a urinary retention and acute urinary tract infection. She was also treated for atrial fibrillation and renal insufficiency. Upon leaving the hospital last week, she noticed worsening blood pressure. She started having headaches. She went to her Internal Medicine doctor several days ago, was given additional clonidine, but still has had high blood pressure at home along with headaches. She also complains of shortness of breath. She does not complain of any chest pain. She denies any fever or cough. PAST SURGICAL HISTORY: 1. Status post hysterectomy. 2. Status post bilateral knee surgery. 3. Status post large toe amputation. PAST MEDICAL HISTORY: 1. Atrial fibrillation and diastolic heart failure. 2. Hypertension. 3. Diabetes. 4. Recurrent urinary tract infections with extended spectrum beta-lactamase producing organisms. 5. Decubitus ulcers on the sacrum. 6. Peripheral vascular disease. 7. Hypothyroidism. 8. Urinary retention. SOCIAL HISTORY: The patient lives alone. She does not smoke or drink. She uses a walker to ambulate. FAMILY HISTORY: There is a history of diabetes, hypertension, and coronary artery disease in the family. ALLERGIES: THE PATIENT HAS MULTIPLE ALLERGIES TO STATINS, PENICILLINS, CODEINE, FENTANYL, MEPERIDINE, AND MORPHINE. REVIEW OF SYSTEMS: She reports headache. She denies fever or chills. She is not having any neck pain. She denies chest pain. She does note shortness of breath, but no cough. She complains of nausea. She has not had vomiting or diarrhea. She denies abdominal pain. There is no leg edema. She is not having any focal neurological complaints. PHYSICAL EXAMINATION: VITAL SIGNS: The blood pressure is 113/86 and the saturation is 100% on 2 L. The pulse is 87. HEENT: No facial swelling or erythema. CARDIAC: Reveals regular rate and rhythm with normal S1, S2. LUNGS: Auscultation of lungs reveals decreased breath sounds at the bases. There is no wheezing. ABDOMEN: Soft, nontender. There is no rebound or guarding. EXTREMITIES: Mild leg edema. RADIOGRAPHIC DATA: Chest x-ray shows cardiomegaly and some central venous congestion. IMPRESSION: 1. Acute on chronic diastolic heart failure. 2. Accelerated hypertension. 3. Chronic renal failure, stage 3. 4. Nausea. 5. Anemia secondary to chronic blood loss. 6. Hypokalemia. PLAN: 1. The patient has received Lasix in the emergency department. 2. Continue metoprolol for diastolic heart failure. 3. Continue amiodarone and anticoagulation. 4. Zofran for nausea. 5. Consider GI evaluation for microcytic anemia. 6. Repeat urine culture. MD JENNIFFER Daly/NARGIS /[id number]
[2019-08-02] MEDS ORDERED: POTASSIUM CHLORIDE 20 MEQ TAB CR PO STA (00:30)
[2019-08-02] MEDS ORDERED: PENTAZOCINE/NALOXONE 1 TAB PO PRN (00:45)
[2019-08-02] MEDS ORDERED: CYCLOBENZAPRINE HCL 10 MG TAB PO PRN (01:00)
[2019-08-02] MEDS: METOPROLOL SUCCINATE 50 MG TAB XL PO SCH ×3 (01:09→22:23)
--- NOTE | 2019-08-02 02:52 | History and Physical ---
PRIMARY CARE PHYSICIAN: Dr. Mckinney. CONSULTING PHYSICIANS: Dr. Silvestre Pham; Dr. Amin with Cardiology, the patient sees on an outpatient basis and who saw the patient last hospitalization visit; Dr. Oscar Sarmiento with Urology. CHIEF COMPLAINT: Difficulty urinating. HISTORY OF PRESENT ILLNESS: The patient is a 64-year-old female, who had difficulty urinating 2 p.m. on 07/21/2019, and was seen here earlier this month, discharged 07/25/2019 with an indwelling Landaverde catheter and was supposed to follow up with Dr. Oscar Sarmiento; however, did not. She is a prior resident of [facility], who stated she was unable to walk. However, per Physical Therapy notes last hospitalization, she was able to walk. She relies on her friend a lot to do things for her. Her most recent hospitalization, she was here for urinary tract infection, urinary retention, and chronic kidney disease. Her urine culture had been contaminated and Infectious Disease saw her, recommended discharging her home on Cipro. An attempt was made to remove the Landaverde catheter prior to discharge and she was placed on Flomax; however, she was unable to urinate on her own, so the Landaverde catheter was replaced. She has not followed up with Urology for any urological studies. In addition, she states that she fell on Tuesday, hitting her head on a nightstand on 07/27/2019; however, there was no bruising, no evidence of injury. PAST MEDICAL HISTORY: Hypertension, chronic atrial fibrillation, chronic kidney disease stage 3B, super morbid obesity with large pannus, diastolic CHF, osteoarthritis, cellulitis, multiple skin wounds from decubitus ulcers such as on her sacrum, type 2 diabetes mellitus, colonization with multidrug-resistant organism, depression, sepsis with multidrug-resistant Klebsiella septicemia, ESBL Escherichia coli UTI, pneumonia, hypothyroidism, falls, ambulatory dysfunction, peripheral arterial disease, COPD, oxygen dependence with use of oxygen 2 L/minute via nasal cannula at home, anemia of chronic disease, recurrent, moderate, major depressive disorder. PAST SURGICAL HISTORY: Hysterectomy, bilateral knee surgery, hematoma removed from the left knee, left large toe amputation. FAMILY HISTORY: Mother had CHF, diabetes, hypertension, hyperlipidemia, and end-stage renal disease, as well as probably other several other medical problems not listed. Father had coronary artery disease, three orthopedic surgeries, diabetes mellitus. He was a smoker and had COPD, hyperlipidemia, and also likely had several other medical conditions not listed. SOCIAL HISTORY: She lives alone. Former occupation was working at [employer] before she became disabled. She is to ambulate with a walker; however, now is using a cane, which she has with her today. She denies any history of smoking, alcohol, or illicit drug use. ALLERGIES: INCLUDE MORPHINE, [id number] REDUCTASE INHIBITOR, SULFA, PENICILLIN. MEDICATIONS: Home medications and current medications reviewed. REVIEW OF SYSTEMS: GENERAL: Denies any significant weight loss or weight gain. No chills or fever. EYES: She wears glasses. Complains of light/aura on the right side of her head. EAR, NOSE, AND THROAT: No complaints of sore throat or nasal drip. RESPIRATORY: No complaints of shortness of breath any worse than what she normally has. No cough or phlegm. GENITOURINARY: She has had difficulty urinating since at least July 20. She came with a Landaverde catheter. Denies dysuria. PSYCHIATRIC: Denies psychiatric history other than depression. INTEGUMENTARY: She has superficial scratches over the legs. Has a left knee wound, that is poorly healing. She has a history of decubitus ulcer on the sacral area. CARDIOVASCULAR: No complaints of chest pain or palpitations. GASTROINTESTINAL: No complaints of nausea, vomiting, diarrhea, or constipation. Her last bowel movement was 07/30. She states prior to that, she had not had a bowel movement per week. MUSCULOSKELETAL: Denies joint or muscle pain at present. In the past, she stated that she was unable to ambulate. However, physical therapy has proven that she can support her own weight. NEUROLOGIC: Denies dizziness. States she had a headache 6/10 on a 0-10 pain scale at the time of her fall on Tuesday. She is still sore on the right side of her head. ENDOCRINE: Known diabetic. HEMATOLOGIC: Denies any bleeding or bruising presently. PHYSICAL EXAMINATION: CURRENT VITAL SIGNS: Temperature 98.1, heart rate 87, blood pressure 109/59, respirations 22, oxygen saturation 96% on 2 L of oxygen via nasal cannula. Height 5 feet 11 inches. Weight documented is 316 pounds. BMI documented is 44.06 pounds. However, I doubt this is correct as her last hospitalization, her BMI was documented is 59.55. GENERAL: Lying supine in bed, awake, alert. LUNGS: Generally clear to auscultation. Oxygen at 2 L/minute via nasal cannula. HEENT: Extraocular eye movements intact. NECK: Supple. CARDIOVASCULAR: Irregularly irregular. No murmur appreciated. ABDOMEN: Bowel sounds positive. Soft, obese pannus. No guarding. GENITOURINARY: Landaverde catheter with yellow urine. EXTREMITIES: Cool to touch bilaterally. No edema, clubbing, or cyanosis or signs of DVT. NEUROLOGIC: GCS 15. Nonfocal. DIAGNOSTIC AND LABORATORY DATA: WBC 10.05, hemoglobin 8.0, hematocrit 28.8, platelets 249. PT 24, INR 1.99, PTT 42.2. Sodium 137, potassium 3.3, chloride 97, CO2 of 31, anion gap 12.3, BUN 19, creatinine 1.45, estimated GFR 36, glucose 100, calcium 8.7, total bilirubin 1.2, AST 29, ALT 47, alkaline phosphatase 107. Creatine kinase 50, CK-MB 2.2, troponin I 0.028. B-type natriuretic peptide 826.2. Total protein 7.0, albumin 3.3. Urinalysis showed clear yellow urine, pH 5.5, specific gravity 1.02; protein, glucose, and ketones were all negative; 2+ blood; nitrite negative; bilirubin negative; urobilinogen 0.2; leukocyte esterase negative; rbc's 6-10; wbc's none; few epithelial cells; few amorphous sediment; moderate urine bacteria. Donahue virus by PCR is pending. Hemoglobin A1c was 5.5% on 07/22. IMAGING STUDIES: Chest x-ray showed cardiomegaly and central pulmonary vascular congestion. A 12-lead EKG showed chronic atrial fibrillation. An echocardiogram was done on 07/20/2007 with ejection fraction 55% to 60%. IMPRESSION AND PLAN: 1. Urinary retention, indwelling Landaverde catheter in situ. Monitor urinary output. We will consult Urology to follow up. 2. Stated fall on 07/27/2019. Awake, alert, oriented x3. CT of the head deferred. No signs or symptoms of any trauma. No outward or apparent injury. 3. Acute hypokalemia. Potassium level 3.3. I see no orders indicating that this is replaced. I will ask that 40 mEq potassium chloride to be given orally once. 4. Anemia of chronic disease. Hemoglobin 8.0. Urinalysis showed 2+ blood; however, no lakia hematuria was noted. Monitor H and H. Fecal occult blood test was negative on 05/15/2019. 5. Controlled hypertension with chronic kidney disease stage 3B, chronic diastolic congestive heart failure and peripheral arterial disease. Currently, blood pressure stable. Resume home antihypertensives. 6. Controlled type 2 diabetes mellitus with chronic kidney disease stage 3B. Hemoglobin A1c 5.5% on 07/22. Monitor fingerstick blood glucose levels. 7. Chronic atrial fibrillation. Monitor telemetry. Resume amiodarone, Coumadin, and digoxin. Cardiology to follow. 8. Acute on chronic diastolic congestive heart failure. Chest x-ray showed cardiomegaly and central pulmonary vascular congestion. B-type natriuretic peptide was 826.2. Monitor fluid status. Follow up on chest x-ray results. 9. Chronic kidney disease stage 3B. Monitor renal function. 10. Peripheral arterial disease with poorly healing open wound to the left knee, scabbed tissue noted. No complaints. 11. Hypothyroidism. TSH on 05/18/2019 was 3.006. Resume home dose of levothyroxine. 12. Recurrent moderate major depressive disorder. Resume home antidepressants. 13. Super morbid obesity with pannus and osteoarthritis, BMI 59.55, previous hospitalization. Dietary restrictions. 14. Ambulatory dysfunction and a history of falls. PT evaluate and treat. 15. Prophylaxis. Protonix, Coumadin. H and P time spent 70 minutes. Billing code [id number]. Dictated by David Alcantar NP MD ANGEL Lion/CHAZL /[id number]
[2019-08-02] MEDS: TRAZODONE HCL 50 MG TAB PO SCH ×2 (05:08→22:23)
[2019-08-02] MEDS ORDERED: POTASSIUM CHLORIDE 20 MEQ TAB CR PO ONE (05:22)
[2019-08-02] MEDS: LEVOTHYROXINE SODIUM 100 MCG TAB PO SCH (05:38)
[2019-08-02] MEDS: AMIODARONE HCL 200 MG TAB PO SCH (05:38)
[2019-08-02 06:16] LABS: BASOPHILS % 0.4 % (0.0-1.0); EOSINOPHILS # (AUTO) 0.3 (0.0-0.4); EOSINOPHILS % 4.1 % (0.0-6.0); HEMATOCRIT 29.3 % (34.2-44.1); LYMPHOCYTES # (AUTO) 0.8 (1.0-3.2); LYMPHOCYTES % 10.6 % (18.0-39.1); MEAN CORPUSCULAR HEMOGLOBIN 22.3 pg (28-32); MEAN CORPUSCULAR HGB CONC 27.3 g/dL (31-35); MEAN CORPUSCULAR VOLUME 81.6 fL (81-99); MONOCYTES % 13.4 % (4.4-11.3); NEUTROPHILS # (AUTO) 5.3 (2.1-6.9); NEUTROPHILS % 71.1 % (38.7-80.0); PLATELET COUNT 197 x10e3/uL (140-360); RED BLOOD COUNT 3.59 x10e6/uL (3.6-5.1); RED CELL DISTRIBUTION WIDTH 20.2 % (11.7-14.4)
[2019-08-02 06:42] LABS: ALBUMIN 3.3 g/dL (3.5-5.0); ALBUMIN/GLOBULIN RATIO 0.9 (0.8-2.0); ANION GAP 13.4 mmol/L (8-16); CALCIUM 9.2 mg/dL (8.4-10.2); CREATININE, SERUM 1.44 mg/dL (0.57-1.11); POTASSIUM 3.4 mmol/L (3.5-5.1)
--- NOTE | 2019-08-02 06:47 | Diagnostic Imaging Report ---
EXAMINATION: CHEST SINGLE (PORTABLE) INDICATION: Shortness of breath COMPARISON: None FINDINGS: AP view TUBES and LINES: None. LUNGS: No new lung consolidation. PLEURA: No pleural effusion or pneumothorax. HEART AND MEDIASTINUM: Stable cardiomegaly. Stable pulmonary venous congestion. BONES AND SOFT TISSUES: No acute osseous lesion. Soft tissues are unremarkable. UPPER ABDOMEN: No free air under the diaphragm. IMPRESSION: No interval change. Stable cardiomegaly with central pulmonary venous congestion. Signed by: Rubén eGe MD on 08/02/2019 6:43 AM
[2019-08-02 07:07] LABS: CREATINE KINASE MB 3.1 ng/mL (0-5.0)
[2019-08-02] MEDS: DULOXETINE HCL 30 MG DELAYED RELEASE PO SCH ×2 (08:35→17:14)
[2019-08-02] MEDS: PANTOPRAZOLE SOD 40 MG TABEC PO SCH (08:35)
[2019-08-02 08:38] LABS: ANISOCYTOSIS MODERATE; HYPOCHROMASIA SLIGHT; OVALOCYTES FEW
[2019-08-02 08:39] LABS: ELLIPTOCYTE, RBC SLIGHT; PLATELET ESTIMATE ADEQUATE; PLATELET MORPHOLOGY COMMENT NORMAL; POLYCHROMASIA FEW; RBC MORPHOLOGY COMMENT NORMAL
[2019-08-02] MEDS ORDERED: FUROSEMIDE 40 MG TAB PO SCH (09:00)
--- NOTE | 2019-08-02 12:59 | NUR ---
SPOKE WITH PATIENT ABOUT SNF ORDER, SHE STATES SHE WILL GO TO [facility], SIGNED CHOICE. FAXING CLINICALS TO FACILITY, ONLY HAVE PENDING RESULTS FOR COVID WILL HAVE TO SEND WHEN RESULTED. COMPLETING PASRR AND RTF
[2019-08-02] MEDS: TAMSULOSIN HCL 0.4 MG CAP PO SCH (13:51)
[2019-08-02] MEDS: DILTIAZEM HCL 60 MG TAB PO SCH (13:51)
--- NOTE | 2019-08-02 13:55 | Consultation ---
DATE OF CONSULTATION: Cardiology Consult HISTORY OF PRESENT ILLNESS: Ms. Natalya Wahl is a 64-year-old female with a primary history of hypertension, chronic atrial fibrillation, diastolic CHF, diabetes type 2, CKD, hypothyroidism, COPD on home O2, and obesity, admitted complaining of worsening shortness of breath, worsening edema of the lower extremity accompanied with orthopnea, dizziness, generalized weakness, and fall. The patient denies any chest pain, nausea, or vomiting. PAST MEDICAL HISTORY: As mentioned above. PAST SURGICAL HISTORY: Includes right great toe amputation 2019 and hysterectomy. FAMILY HISTORY: Mother had hypertension and CHF. SOCIAL HISTORY: The patient is non-smoker and no alcohol use. MEDICATIONS: Home medication includes amiodarone 200 mg tablet, diltiazem 60 mg tablet, furosemide 40 mg daily tablet, metoprolol succinate 50 mg daily, and warfarin 5 mg tablet daily. PHYSICAL EXAMINATION: VITAL SIGNS: 111/58 blood pressure, pulse of 90, temperature is 97.6, and pulse oximetry 96% on 2 L nasal cannula. GENERAL: The patient is a well-developed, obese, in no acute distress. HEENT: Head is normocephalic and atraumatic. Eyes, pupils are equal, round, and reactive to light and accommodation. Sclerae are nonicteric. Ears are normal. Oral cavity and mucosa are moist. Throat is clear. NECK AND THYROID: Neck is supple. Full range of motion. No cervical lymphadenopathy. SKIN: Warm and dry. HEART: Irregular rhythm. S1 and S2 audible. No murmurs. LUNGS: Diminished lower lobes. ABDOMEN: Obese, soft, and nondistended. Bowel sounds are present and normal. EXTREMITIES: +3 to 4 edema. NEUROLOGIC: Nonfocal motor strength of upper and lower extremities with generalized weakness. Sensory exam is intact. LABORATORIES: BNP 826.2. Troponin 0.028, 0.037. Sodium 137, potassium is 3.3, creatinine 1.47, and albumin 3.3. IMPRESSION AND PLAN: The patient is a 64-year-old, admitted concerning for orqov-fx-dajnqhd congestive heart failure. 1. Monitor hemodynamics and place the patient on telemetry monitoring. 2. Echocardiogram to assess valvular function, wall function and abnormalities and LVEF. 3. Diurese with IV Lasix. Monitor intake and output and electrolytes or replace electrolytes as needed. Trend BNP. 4. Check lipid panel. Restart cardiac home medications. Monitor blood pressure and heart rate. Continue metoprolol, amiodarone, and warfarin for her atrial fibrillation. 5. Cardiac diet. Daily weight. Followup chest x-ray. 6. Further recommendation will follow according to the patient's clinical course. We will continue to follow. Thank you for this consultation. Dictated by Francine Marshall NP MD JOON Marsh/NARGIS /[id number]
[2019-08-02 14:32] LABS: CREATINE KINASE MB 3.2 ng/mL (0-5.0)
[2019-08-02] MEDS: WARFARIN SOD 5 MG TAB PO SCH (17:14)
--- NOTE | 2019-08-02 18:56 | Progress Note ---
DATE: 08/02/2019 SUBJECTIVE: The patient is lying supine with head of bed elevated on a stretcher in the emergency department. A bed has not become available as of yet. She still complains of a light/aura on the right side of the head. She has had difficulty urinating since at least the 20 of July. She has a left knee wound, that is poorly healing. Last bowel movement Sunday 07/30. Reports that she worked with physical therapy today, Rajat with PT completed his evaluation. Denies headache. Still some soreness on the right side of the head. MEDICATIONS: Reviewed. OBJECTIVE: VITAL SIGNS: Temperature 97.6, heart rate 87, blood pressure 111/58, respirations 20, and oxygen saturation 95% on 2 L of oxygen via nasal cannula. GENERAL: Head of bed elevated. Alert and oriented. LUNGS: Clear to auscultation. Respirations unlabored. Oxygen at 2 L/min via nasal cannula. HEENT: EOMI. NECK: Supple. CARDIOVASCULAR: Irregularly irregular. No murmur. ABDOMEN: Soft, obese with pannus. Positive bowel sounds. No guarding. GENITOURINARY: Landaverde catheter with yellow urine. EXTREMITIES: Cool to touch bilaterally. No edema, clubbing, or cyanosis, or obvious deep venous thrombosis. NEUROLOGIC: GCS 15, nonfocal. DIAGNOSTIC LABORATORY: Sodium 138, potassium 3.4, chloride 97, CO2 of 31, BUN 18, creatinine 1.44, EGFR 13. WBC 7.48, hemoglobin 8.0, hematocrit 29.3, and platelets 197. Total bilirubin 1.0, AST 24, ALT 41, alkaline phosphatase 97. Cardiac biomarkers negative x2 sets. On 08/01/2019, Coronavirus by PCR remains pending. Chest x-ray completed today without change, still shows cardiomegaly and central pulmonary vascular congestion. Echocardiogram done on 07/20/2007, with ejection fraction of 55% to 60%. IMPRESSION AND PLAN: 1. Urinary retention, indwelling Landaverde catheter in situ. Eventually, the patient should have a cystogram and retrogrades per Dr. Sarmiento with Urology. The patient is to follow up on an outpatient basis. 2. Stated fall on 07/27/2019. CT of head deferred. No obvious facial trauma or apparent injury. 3. Acute hypokalemia. Potassium level 3.4 (3.3) completed yesterday and today. 4. Anemia of chronic disease. Hemoglobin 8.0 (8.0). No lakia hematuria in urine. Monitor H and H. Fecal occult blood test negative on 05/15/2019. 5. Controlled hypertension with a chronic kidney disease 3B, chronic diastolic congestive heart failure and peripheral vascular disease. BP stable. Continue metoprolol, diltiazem, and Lasix. 6. Controlled type 2 diabetes mellitus with chronic kidney disease 3B. Hb A1c 5.5% on 07/23/2019. FSBG stable. 7. Chronic atrial fibrillation. Continue amiodarone, Coumadin, and digoxin. Monitor telemetry. Cardiology following. 8. Zdorg-jw-fpygywb diastolic congestive heart failure. Follow up on chest x-ray results. BNP 826.2. Monitor fluid status. 9. Chronic kidney disease 3B. Monitor renal labs. Avoid nephrotoxic agents. 10. Peripheral artery disease with poorly healing open wound to left knee. 11. Hypothyroidism. On 05/18/2019, TSH 3.006. Continue levothyroxine. 12. Recurrent moderate major depressive disorder. Continue trazodone and duloxetine. 13. Super morbid obesity with pannus and OA, BMI 59.55. Dietary restrictions. 14. Ambulatory dysfunction, history of multiple recent falls, deconditioning. PT eval and treat no ambulation yet today, but we will try again tomorrow. 15. Prophylaxis; Protonix, Coumadin. TIME SPENT: 35 minutes. BILLING CODE: [id number]. DISPOSITION: Case Management consulted for SNF eval, facility choice [facility] [address]. Dictated by David Alcantar, SOPHIA MD CORNELIUS LionP/MODL /[id number]
--- NOTE | 2019-08-02 19:16 | Consultation ---
DATE OF CONSULTATION: 08/02/2019 Cardiology Consultation REASON FOR CONSULTATION: Shortness of breath. HISTORY OF PRESENT ILLNESS: A 64-year-old woman with anemia, chronic kidney disease, morbid obesity, chronic diastolic heart failure, and paroxysmal atrial fibrillation, presents with worsening shortness of breath and dependent edema over the last several days. She denies any chest discomfort, lightheadedness, or syncope. REVIEW OF SYSTEMS: A 12-system review negative except for as noted above. PAST MEDICAL HISTORY: As per HPI. ALLERGIES: TO MORPHINE, STATIN, SULFAS, AND PENICILLIN. SOCIAL HISTORY: No active smoking, alcohol, or drugs. FAMILY HISTORY: Noncontributory. PHYSICAL EXAMINATION: VITAL SIGNS: Heart rate 87, blood pressure 120/78, respiratory rate 20, and O2 saturation 94% on nasal cannula. BMI 44. GENERAL: In no acute distress. Alert. NECK: No JVD. Distended to lower third of neck. CHEST: Decreased breath sounds in bilateral bases. CARDIOVASCULAR: Irregularly irregular rate and rhythm. Normal S1 and S2. No S3 or S4. Systolic ejection murmur. ABDOMEN: Soft. Bowel sounds positive. EXTREMITIES: 1+ edema. CARDIOVASCULAR MEDICATIONS: Reviewed. Warfarin 5 mg daily, metoprolol succinate 50 mg every 12 hours, and amiodarone 200 mg daily. STUDIES: Reviewed. Sodium 138, potassium 3.4, chloride 97, bicarbonate 31, BUN 18, creatinine 1.44, and glucose 112. White blood cell 7.4, hemoglobin 8, and platelets of 197. PT 24, PTT 42, and INR 1.99. AST 24, ALT 41, alkaline phosphatase 97, and total bilirubin is 1. ASSESSMENT AND PLAN: A 64-year-old woman presents with fzsiq-ka-zjqodip diastolic heart failure and recent hospitalization with pneumonia, paroxysmal atrial fibrillation, morbid obesity, hypothyroidism, and hypertension. RECOMMEND: 1. Anemia workup. 2. Continue anticoagulation for target INR 2 to 3 with warfarin. 3. Continue amiodarone and metoprolol for adequate rate control. 4. Pulmonary consultation. 5. Diuretic trial. 6. We will follow closely with you. Dylan Ventura MD AFV/MODAntoni /[id number]
[2019-08-02 20:00] VITALS: BP 110/93
[2019-08-02] MEDS ORDERED: HYDRALAZINE HCL 20 MG/ML VIAL IV PRN (20:00)
[2019-08-02 20:54] VITALS: BP 110/93
[2019-08-02] MEDS: FUROSEMIDE INJ 10 MG/ML 4 ML VIAL IV SCH (22:23)
[2019-08-02 22:25] VITALS: BP 110/93
[2019-08-03] VITALS (7 sets, daily range): BP systolic 91–116; BP diastolic 63–95
[2019-08-03 05:36] LABS: BASOPHILS # (AUTO) 0.1 (0.0-0.1); BASOPHILS % 0.7 % (0.0-1.0); EOSINOPHILS # (AUTO) 0.3 (0.0-0.4); EOSINOPHILS % 4.6 % (0.0-6.0); HEMOGLOBIN 7.2 g/dL (12.0-16.0); LYMPHOCYTES # (AUTO) 0.9 (1.0-3.2); LYMPHOCYTES % 14.1 % (18.0-39.1); MEAN CORPUSCULAR HGB CONC 27.7 g/dL (31-35); MEAN CORPUSCULAR VOLUME 79.5 fL (81-99); MONOCYTES % 14.7 % (4.4-11.3); NEUTROPHILS # (AUTO) 4.4 (2.1-6.9); NEUTROPHILS % 65.5 % (38.7-80.0); PLATELET COUNT 168 x10e3/uL (140-360); RED BLOOD COUNT 3.27 x10e6/uL (3.6-5.1); RED CELL DISTRIBUTION WIDTH 20.2 % (11.7-14.4)
[2019-08-03 05:50] LABS: ANION GAP 12.3 mmol/L (8-16); CALCIUM 9.1 mg/dL (8.4-10.2); CREATININE, SERUM 1.46 mg/dL (0.57-1.11); POTASSIUM 3.3 mmol/L (3.5-5.1)
[2019-08-03] MEDS: LEVOTHYROXINE SODIUM 100 MCG TAB PO SCH (05:59)
[2019-08-03] MEDS: AMIODARONE HCL 200 MG TAB PO SCH (05:59)
--- NOTE | 2019-08-03 07:00 | NUR ---
BEDSIDE SHIFT REPORT RECEIVED FROM THE SECOND BAKER RN. EDUCATED PT ABOUT FALL PRECAUTIONS. PT VERBALIZED UNDERSTANDING. CALL LIGHT WITH IN EASY REACH. INSTRUCTED PT TO USE CALL LIGHT FOR ALL THE NEEDS. BED IS LOW AND LOCKED. SIDE RAILS X2. BED ALARM IS ON. PT DENIES NEEDS AT THIS TIME.
[2019-08-03 07:17] LABS: ANISOCYTOSIS MODERATE; PLATELET ESTIMATE ADEQUATE; PLATELET MORPHOLOGY COMMENT NORMAL; RBC MORPHOLOGY COMMENT ABNORMAL
[2019-08-03 07:18] LABS: POIKILOCYTOSIS SLIGHT; POLYCHROMASIA FEW
--- NOTE | 2019-08-03 08:27 | NUR ---
PAGED OSMANY AUTOMATION CONSULTANT AND LEFT MESSAGE REGARDING PT HGB 7.2 AND MORNING BP 91/76. WAITING FOR THE RESPONSE.
[2019-08-03] MEDS: DILTIAZEM HCL 60 MG TAB PO SCH ×2 (09:00→11:00)
[2019-08-03] MEDS ORDERED: POTASSIUM CHLORIDE 10MEQ EA PO SCH (09:00)
--- NOTE | 2019-08-03 09:00 | NUR ---
CALL BACK RECEIVED FROM OSMANY CORTES. REPORTED HGB 7.2. NO NEW ORDERS RECEIVED.
[2019-08-03] MEDS: TAMSULOSIN HCL 0.4 MG CAP PO SCH (09:10)
[2019-08-03] MEDS: FUROSEMIDE INJ 10 MG/ML 4 ML VIAL IV SCH (09:11)
[2019-08-03] MEDS: METOPROLOL SUCCINATE 50 MG TAB XL PO SCH (09:11)
[2019-08-03] MEDS: PANTOPRAZOLE SOD 40 MG TABEC PO SCH (09:11)
[2019-08-03] MEDS: DULOXETINE HCL 30 MG DELAYED RELEASE PO SCH ×2 (09:11→16:53)
--- NOTE | 2019-08-03 09:30 | NUR ---
DR. ESQUIVEL AT BEDSIDE.
--- NOTE | 2019-08-03 09:52 | NUR ---
GOT INSURANCE APPROVAL FOR SNF BED, WAITING ON MOT WILL NOT GET UNTIL LAB RESULTS ARE BACK AND FORWARDED TO FACILITY.
[2019-08-03 10:15] LABS: FERRITIN 33.75 ng/mL (4.63-204.00)
--- NOTE | 2019-08-03 12:01 | NUR ---
GOT RESULTS IN, FAXED TO FACILITY CALLED REP SHE WILL GET ME A BED.
--- NOTE | 2019-08-03 12:18 | Progress Note ---
DATE: 08/03/2019 Cardiology Progress Note SUBJECTIVE: No complaints. Denies chest pain. Shortness of breath slightly improved. Edema improved. OBJECTIVE: VITAL SIGNS: Temperature 97.9, heart rate 87, blood pressure 105/79, respiratory rate 18, O2 saturation 100%. BMI of 46. GENERAL: In no acute distress. Alert. NECK: No JVD. CHEST: Clear to auscultation. CARDIOVASCULAR: Irregularly irregular rate and rhythm. Normal S1, S2. ABDOMEN: Soft. Bowel sounds positive. EXTREMITIES: Trace edema. CARDIOVASCULAR MEDICATIONS: Reviewed. Potassium chloride 10 mEq daily, hydralazine 10 mg every 4 hours, warfarin 5 mg every night at bedtime, metoprolol succinate 50 mg every 12 hours, furosemide 40 mg every 12 hours. LABORATORY DATA: Studies reviewed. Sodium 138, potassium 3.3, chloride 97, bicarbonate 32, BUN 16, creatinine 1.4, glucose 113. White blood cells 6.6, hemoglobin 7.2, platelets 168. INR 1.99. AST 24, ALT 41. ASSESSMENT AND PLAN: A 64-year-old woman with history of pneumonia, presents with acute on chronic diastolic heart failure, worsening shortness of breath, anemia, morbid obesity, hypothyroidism, paroxysmal atrial fibrillation. RECOMMENDATIONS: 1. Continue diuretics. 2. Consider anemia workup and rule out underlying bleeding, particularly given chronic anticoagulation. We will follow closely with you. MD BARB Sewell/NARGIS /[id number]
--- NOTE | 2019-08-03 12:30 | NUR ---
RISK COMPLIANCE MANAGER AT BEDSIDE.
--- NOTE | 2019-08-03 12:35 | NUR ---
WOUND CARE SCREENING CONSULT FOR 64 YO FEMALE. HX OF PRESENT ILLNESS OF CHF, CHRONIC ANEMIA. NICOLASA 17 ON MODERATE PUP STATUS AND INTERVENTIONS LABS: WBC- 6.67 HGB- 7.2 GLUCOSE-126 SURFACE: REGULAR VISCO MATTRESS. SKIN ASSESSMENT COMPLETE PATIENT PRESENTS WITH: 1)STAGE II HEALED PRESSURE ULCER TO LEFT BUTTOCK, MEASURING HEALED SCAR: 0. 8CM X 0.9 CM; RED BLANCHABLE PERIWOUND. NO DRAINAGE; PT REPORTED HAVING A HX OF PRESSURE ULCER TO L BUTTOCK THAT HEALS AND THEN OPENS UP. 2)REDNESS PRESENT TO BILATERAL GROIN FOLDS AND LOWER ABDOMINAL FOLD. 3)DRY SCAB TO LEFT KNEE MEASURING 2.5CM X 7 CM; NO DRAINAGE, 100% ESCHAR. NO S/S OF INFECTION NOTED. THIS NURSE CALLED ; STAFF REPORTED VIRTUAL CUSTOMER ASSISTANT IS COVERING FOR HIM AT THE TIME AND PT IS READY FOR DISCHARGE; WOUND CARE RECOMMENDATION FOR REDNESS TO BILATERAL GROIN FOILD AND LOWER ABDOMINAL FOLD IS TO CLEAN AREAS WITH NORMAL SALINE; PAT DRY WITH 4X4 GAUZE, APPLY NYSTATIN POWDER TWICE A DAY. THE MESSAGE WILL BE FORWARD TO VIRTUAL CUSTOMER ASSISTANT TO DECIDE IF WOUND CARE RECOMMENDATION IS OPTIMAL FOR THIS PT. RECOMMENDATIONS: NURSING TO CLEAN HEALED STAGE II PRESSURE ULCER WITH NORMAL SALINE; PAT DRY WITH 4X4 GAUZE AND TO APPLY AN ALLEVYN FOAM TO AREA TO PREVENT PRESSURE SORE. NURSING TO MONITOR AREA DAILY. NURSING TO CLEAN REDNESS TO BILATERAL GROIN FOLD AND LOWER ABDOMINAL FOLD IS TO CLEAN AREAS WITH NORMAL SALINE; PAT DRY WITH 4X4 GAUZE, APPLY NYSTATIN POWDER TWICE A DAY. NURSING TO CONTINUE TO MONITOR PATIENT AND KEEP SKIN CLEAN AND FREE FROM STOOL OR IRRITATING MOISTURE AND CONTINUE TO FOLLOW MODERATE PUP INTERVENTIONS DAILY. NURSING TO CONTINUE REPOSITION AND TO ENCOURAGE PT TO REPOSITION SIDE TO SIDE EVERY TWO HOURS. NURSING TO CONTINUE TO OFFLOAD FEET AND HEELS AT ALL TIMES WITH PILLOW SUSPENSION WHEN IN BED. NURSING TO APPLY AN ALTERNATING PRESSURE MATTRESS. NURSING TO CONTINUE TO ASSIST PT OUT OF BED DURING NUTRITIONAL MEALS MUCH TOLERATED. NURSING TO CONSULT WOUND CARE NEEDED. Addendum: 08/03/19 at 1549 by Yany Martínez RN Amended: Links added.
--- NOTE | 2019-08-03 13:44 | NUR ---
[facility] FACILITY DISCHARGE INFORMATION PATIENT HAS BEEN ACCEPTED TO: NAME: JOSEFA LARIOS ADDRESS: [id number] [place] [address] ACCEPTING BALANCE ENGINEER: HUGO OBRIEN ACCEPTING MD: ALESSANDRA ROOM: 403 NURSE CALL REPORT TO: [phone] IMM SIGNED AND OBTAINED (if applicable): OBS MORIS THE FOLLOWING DOCUMENTS MUST ACCOMPANY PATIENT FOR TRANSFER: COPIED CHART:PACKET
[2019-08-03] MEDS ORDERED: K DUR10 MEQ PO (14:30)
[2019-08-03] MEDS ORDERED: FUROSEMIDE40 MG PO (14:30)
[2019-08-03] MEDS ORDERED: ZOFRAN8 MG PO (14:30)
[2019-08-03] MEDS ORDERED: POTASSIUM CHLORIDE 20 MEQ TAB CR PO SCH (15:00)
[2019-08-03] MEDS ORDERED: FERROUS SULFATE 325 MG TAB PO SCH (15:00)
[2019-08-03 15:39] LABS: INR 2.45; PROTHROMBIN TIME 28.4 seconds (11.9-14.5)
--- NOTE | 2019-08-03 16:00 | NUR ---
PT ALLEN CAME OUT. TIP INTACT. INFORMED THE SAME TO OSMANY CORTES. REPLACED ALLEN PER THE ORDER. 16 FR. 2 NURSES VERIFIED. PT TOLERATED WELL. PT DENIED FURTHER NEEDS.
--- NOTE | 2019-08-03 16:30 | NUR ---
PAGED FOCUSSED CARE OF NIKOLAIA . PT TRANSFERRING TO RM 403. REPORT GIVEN TO PEEWEE COOMBS.
--- NOTE | 2019-08-03 16:39 | NUR ---
RECONFIRMED COUMADIN DOSE WITH PT. PT TAKES 5 MG EVERY DAY.
[2019-08-03] MEDS: WARFARIN SOD 5 MG TAB PO SCH (16:53)
--- NOTE | 2019-08-03 17:01 | NUR ---
DR. EDWARDS AT BEDSIDE. TRANSFER PT WITH ALLEN PER THE
--- NOTE | 2019-08-03 17:06 | NUR ---
[facility] TO TRANSFER PT PER DR. ESQUIVEL.
--- NOTE | 2019-08-03 18:55 | NUR ---
BEDSIDE SHIFT REPORT GIVEN TO THE ORAL SURGERY TECHNICIAN RN. PT DENIED FURTHER NEEDS.
--- NOTE | 2019-08-03 19:00 | NUR ---
PT IS WAITING FOR EMS TO PICK .
--- NOTE | 2019-08-03 20:07 | NUR ---
Pt left facility via wheelchair. IV catheter removed, tip intact. Pt is calm, AAOx4. No SOB/resp distress. No c/o pain/discomfort at this time.
--- NOTE | 2019-08-04 01:16 | Discharge Summary ---
PRIMARY CARE PHYSICIAN: Lakia Mckinney MD. CONSULTING PHYSICIANS: 1. Silvestre Pham MD. 2. Dylan Ventura MD., with Cardiology, who the patient sees on an outpatient basis. 3. Oscar Sarmiento MD., with Urology. CHIEF COMPLAINT: Difficulty urinating. HOSPITAL COURSE: The patient is a 64-year-old female, who had difficulty urinating since 2 p.m. on 07/21/2019, and was seen here at this facility earlier this month, discharged 07/25/2019, with an indwelling Landaverde catheter and was supposed to follow up with Dr. Oscar Sarmiento, however, did not. She is a prior resident of [facility], who stated that she was unable to walk on admission. However, per physical therapy notes last hospitalization, she was able to walk a few steps. This hospitalization, she was evaluated by Physical Therapy today and is able to take a few steps. She is likely not a candidate for inpatient rehab, such as with [facility], however, is a good candidate for halfway facility. Her most recent prior hospitalization, she was here for urinary tract infection, urinary retention, and chronic kidney disease. Her urine culture had been contaminated and Infectious Disease saw her, recommended discharging her home on Cipro. An attempt was made to remove the Landaverde catheter prior to discharge and she was placed on Flomax. However, she was unable urinate on her own, so the Landaverde catheter was replaced. She is admitted at this time with a Landaverde catheter in place and she has not yet had a chance to follow up with Urology for any urological studies. In addition, she stated that she fell on Tuesday, hitting her head on a nightstand on 07/27/2019. However, there was no bruising, no outward evidence of physical injury. ADMITTING DIAGNOSES: 1. Urinary retention, indwelling Landaverde catheter in situ. 2. Stated fall on 07/27/2019. 3. Acute hypokalemia. 4. Anemia of chronic disease. 5. Controlled hypertension with chronic kidney disease stage 3B, chronic diastolic congestive heart failure, and peripheral arterial disease. 6. Controlled type 2 diabetes mellitus with chronic kidney disease stage 3B. 7. Chronic atrial fibrillation. 8. Nqybl-in-hgwcmnd diastolic congestive heart failure. 9. Chronic kidney disease stage 3B. 10. Peripheral arterial disease with poorly healing open wound to the left knee, scab tissue noted. 11. Hypothyroidism. 12. Recurrent major depressive disorder. 13. Super morbid obesity with pannus and osteoarthritis, BMI 59.55. 14. Ambulatory dysfunction and a history of falls. DISCHARGE DIAGNOSES: 1. Urinary retention, indwelling Landaverde catheter in situ. 2. Stated fall on 07/27/2019 without apparent injury. 3. Acute hypokalemia. 4. Anemia of chronic disease with hemoglobin 8.0. 5. Controlled hypertension with chronic kidney disease 3B, chronic diastolic congestive heart failure and peripheral arterial disease. 6. Controlled type 2 diabetes mellitus with chronic kidney disease 3B. 7. Chronic atrial fibrillation. 8. Eypew-mu-qvftemq diastolic congestive heart failure. 9. Chronic kidney disease 3B. 10. Peripheral arterial disease with poorly healing open wound to the left knee. 11. Hypothyroidism. 12. Recurrent moderate major depressive disorder. 13. Super morbid obesity with pannus and osteoarthritis, BMI 59.55. 14. Ambulatory dysfunction, history of multiple recent falls. 15. Deconditioning. Today, vital signs; pulse 102, blood pressure 116/80, respirations 18, and oxygen saturation 100%. Sodium 138, potassium 3.3, chloride 97, CO2 32, BUN 16, creatinine 1.46, glucose 113. WBCs 6.67, hemoglobin 7.2, hematocrit 26, platelets 168. Physical exam is unchanged. Before she leaves, we will check an INR to ensure Coumadin dosage is appropriate. She has been receiving potassium chloride as her replacement since her stay. An anemia workup was done today showing iron 18, TIBC 409, percent saturation for transferrin 292, ferritin 33.75, vitamin B12 665, folate is pending. The patient has been started on ferrous sulfate 325 mg t.i.d., 20 mEq potassium chloride once has been ordered by Cardiology. The patient will follow up with Dr. Sarmiento with Urology on an outpatient basis. Landaverde catheter remained in place. She is to have a cystogram and retrogrades at a later date. No lakia hematuria. Fecal occult blood test was negative on 05/15/2019. Continue cardiac diet. Activity level as tolerated. Follow up with SOPHIA Vasquez and Dr. Quinteros at [facility]. Dictated by David Alcantar NP MD ANGEL Lion/NARGIS /[id number]
== END 2019-08-03 20:02 ==
LOC: ER 12:54 → ERHOLD 15:23 → MED/SURG2 08-02 18:18
PROVIDERS: ADMIT Internal Medicine; ATTEND Internal Medicine
DX: I13.0 Hypertensive heart and chronic kidney disease with heart failure and stage 1 through stage 4 chronic kidney disease, or unspecified chronic kidney disease (principal); I50.33 Acute on chronic diastolic (congestive) heart failure; D63.8 Anemia in other chronic diseases classified elsewhere; R33.9 Retention of urine, unspecified; E11.22 Type 2 diabetes mellitus with diabetic chronic kidney disease; N18.3 Chronic kidney disease, stage 3 (moderate); Z94.0 Kidney transplant status; E66.01 Morbid (severe) obesity due to excess calories; Z68.43 Body mass index [BMI] 50.0-59.9, adult; E03.9 Hypothyroidism, unspecified; I73.9 Peripheral vascular disease, unspecified; E87.6 Hypokalemia; I48.20 Chronic atrial fibrillation, unspecified; J44.9 Chronic obstructive pulmonary disease, unspecified; Z99.81 Dependence on supplemental oxygen; Z96.0 Presence of urogenital implants; R53.81 Other malaise; Z91.81 History of falling; E65 Localized adiposity; F33.1 Major depressive disorder, recurrent, moderate
CPT/HCPCS: 36415 ×3; 51700; 71045 ×2; 80048; 80053 ×2; 81001; 82550 ×2; 82553 ×2; 82607; 82728; 82746; 82948; 83540; 83880; 84466; 84484 ×2; 85025 ×3; 85045; 85610 ×2; 85730; 87635; 93005; 93306; 97139 ×2; 97162; 97530 ×2; 99251; 99284; G0378 ×3; J1940 ×2; S0164 ×2